=== PATIENT | male | born 1970 | race Caucasian/White ===

== ENCOUNTER → 2017-03-21 09:24 | Outpatient (CLI) | payer OTHER, SELFPAY ==
--- NOTE | 2017-03-21 09:28 | RAD_ITS ---
STUDY: X-RAY CHEST REASON FOR EXAM: Male, 46 years old. Burning sensation in the mid chest region. TECHNIQUE: PA and lateral views of the chest. COMPARISON: Comparison is made with prior study dated February 10, 2014. FINDINGS: The lungs are clear and expanded. Scattered calcified granulomas. There is no demonstrated pleural abnormality. Normal size heart. Normal mediastinum and izabella. Normal visualized pulmonary arteries. Normal visualized aortic arch and descending thoracic aorta. Normal visualized thoracic spine. Normal visualized ribs, clavicles, and shoulders. There is no demonstrated abnormality of the visualized soft tissue structures of the upper abdomen. RAD/Chest PA and Lateral IMPRESSION: Normal x-ray examination of the chest. Electronically Signed: Junior Awan MD at 12:29 EST Tel [phone], Service support ,
== END ==
PROVIDERS: Family Provider Internal Medicine; PCP Internal Medicine; Visit Provider Nurse Practitioner Gerontology
DX: R07.89 Other chest pain (principal)
CPT/HCPCS: 71046

== ENCOUNTER 2019-07-27 20:12 | Emergency (ER) | payer BC, OTHER, SELFPAY ==
[2019-07-27 20:13] VITALS: BP 155/101; PULSE 92; RESP 15; TEMP 36.3; O2SAT 98; BMI 32.3
--- NOTE | 2019-07-27 20:30 | ED.VIS.GEN ---
History of Present Illness Chief Complaint: Other, Pain/Inj Informant: Patient, Family Onset: Today Narrative: Patient states that today while attempting to get into the pool he slipped and came down on the ladder over the medial distal right thigh. He notes a large amount of swelling and bruising. States is painful to try to bend the knee and to try to ambulate. 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 He denies being on any blood thinners. Past Medical History - Allergies and Home Meds Allergies/Adverse Reactions: Allergies ampicillin Allergy (Verified 07/27/19 20:18) Rash Primary Care Physician: Naida Butler DO [Primary Care Provider] - Smoking Status: Never smoker Review of Systems General: Denies: Chills, Fever, Sweats Eyes: Denies: Visual changes - bilaterally, Diplopia ENT: Denies: Rhinorrhea, Sore throat Cardiovascular: Denies: Chest pain, Palpitations Respiratory: Denies: Dyspnea, Cough, Dyspnea on exertion Gastrointestinal: Denies: Abdominal pain, Nausea, Vomiting, Diarrhea, Melena, Hematochezia Genitourinary: Denies: Dysuria, Hematuria, Frequency Musculoskeletal: Reports: Extremity Pain. Denies: Back pain Skin: Denies: Rash, Wounds Neurological: Denies: Headache, Weakness, Numbness Physical Exam Vital Signs/Narrative: Vital Signs Temp Pulse Resp BP Pulse Ox 07/27/19 20:13 97.4 F L 92 15 155/101 H 98 Inital Vital Signs reviewed: Yes General: Well nourished, Well developed, No Acute Distress Head: Normocephalic, Atraumatic Eyes: Perrl, EOMI ENT: Moist mucous membranes, No rhinorrhea Neck: Supple, Nontender Cardiovascular: Regular rate, Regular rhythm, No murmurs Respiratory: No distress, CTA bilaterally, Chest nontender Abdomen: Soft, Nontender, Nondistended, Normal bowel sounds Back: Nontender, Normal Inspection Extremities: Tenderness - Medial distal posterior thigh demonstrates about a baseball sized hematoma right along his hamstring tendons. The knee joint itself appears unaffected. Neurovascularly he is intact distally. Skin: Normal color, No rash Neurological: Alert, Oriented x3, Cranial nerves II-XII grossly intact, Normal Strength, Normal Sensation Psychological: Normal affect, Normal Mood Diagnostic/Tx/Re-eval - Medical Decision Making I do not believe x-rays are indicated. This appears to be a large subcutaneous hematoma. We will place him on crutches and have him use an Mario wrap and ice. I will write for a few [place]. He was advised this will take some time to fully resolve. I can take him off work for a few days. ED Disposition - Plan for ED Patient: Disposition: Home or Assisted Living Diagnosis: Subcutaneous hematoma Instructions: ED Hematoma Prescriptions: Hydrocodone Bitart/Apap 5-325 [[place] 5MG-325MG] 1 tab PO Q6H PRN PRN 3 Days #12 tab PRN Reason: Pain Prescription Printed Referrals: Naida Butler DO [Primary Care Provider] - 10-14 Days if not better
== END 2019-07-27 21:07 | disposition home or self-care (01) ==
LOC: ED 20:42
PROVIDERS: Emergency Provider Emergency Medicine; PCP Internal Medicine
DX: S70.11XA Contusion of right thigh, initial encounter (principal); W01.198A Fall on same level from slipping, tripping and stumbling with subsequent striking against other object, initial encounter; Y93.11 Activity, swimming; Y92.008 Other place in unspecified non-institutional (private) residence as the place of occurrence of the external cause; Y99.8 Other external cause status
CPT/HCPCS: 99282

== ENCOUNTER → 2020-04-16 15:43 | Outpatient (CLI) | payer OTHER, SELFPAY ==
--- NOTE | 2020-04-16 15:47 | VDLE_ITS ---
Reason For Study: Shortness of breath RIGHT GSV is normal. CFV is compressible, spontaneous, phasic, competent and demonstrates normal augmentation. FV is compressible, spontaneous, phasic, competent and demonstrates normal augmentation. POP V is compressible, spontaneous, phasic, competent and demonstrates normal augmentation. T/P Trunk is compressible. PTV is compressible. RT PerV is compressible. Procedure This is a venous duplex using B-mode, color flow and spectral Doppler. Exam performed in department. A preliminary report was called and/or faxed to [facility]. Interpretation Summary Deep veins of the right lower extremity are patent and compressible segmentally. There is no evidence of right lower extremity deep vein thrombosis. Valvular competence appears intact within the proximal deep venous system on the right . The right great saphenous vein appears patent and compressible segmentally. Ordering Physician: Naida Butler Referring Physician: Naida Butler Performed By: Reina Perez RVT
[2020-04-16 16:19] LABS: Absolute Lymphocyte Count 1.38 X10^3/uL (0.83-4.51); Absolute Neutrophil Count 4.8 X10^3/uL (2.0-7.7); Basophil# 0.04 X10^3/uL; Basophil% 0.6 % (0-1); Eosinophil# 0.14 X10^3/uL; Eosinophils% 1.9 % (0-5); Hematocrit 45.9 % (40-54); Hemoglobin 15.3 g/dL (13.0-16.5); Lymphocyte # 1.38 X10^3/ul (4.0); Lymphocyte % 19.1 % (19-41); Mean Corp Hgb Conc 33.3 g/dL (32-36); Mean Corpuscular Hgb 28.9 pg (27.0-32.0); Mean Corpuscular Volume 86.8 fL (80-94); Mean Platelet Vol. 11.5 fl (6.2-12.0); Monocyte# 0.86 X10^3/uL; Monocyte% 11.9 % (0-10); NRBC Flagged by Analyzer 0 % (0-5); Neutrophil # 4.78 X10^3/uL (2.7-7.7); Neutrophil % 65.9 % (47-70); Platelet Count 209 K/mm3 (150-450); RBC Distribution Width CV 13.2 % (11.6-14.6); RBC Distribution Width SD 41.8 fl (35.1-43.9); Red Blood Count 5.29 M/mm3 (4.6-6.2); White Blood Count 7.2 K/mm3 (4.4-11.0)
[2020-04-16 16:48] LABS: Amylase 24 U/L (25-115); CRP < 2.90 mg/L (0.0-3.0); Erythrocyte Sedimentation Rate 8 mm/hr (0-20); Lipase 82 U/L (73-393)
== END ==
PROVIDERS: PCP Internal Medicine; Referring Provider Internal Medicine; Visit Provider Internal Medicine
DX: K85.90 Acute pancreatitis without necrosis or infection, unspecified (principal); R06.02 Shortness of breath
CPT/HCPCS: 36415; 82150; 83690; 85025; 85652; 86140; 93971

== ENCOUNTER 2021-05-15 19:25 | Emergency (ER) | payer BC, OTHER, SELFPAY ==
[2021-05-15 19:26] VITALS: BP 164/108; PULSE 97; RESP 22; TEMP 36.5; O2SAT 97; BMI 33.7
--- NOTE | 2021-05-15 19:31 | EKG12_ITS ---
Test Reason : CP Blood Pressure : / mmHG Vent. Rate : 098 BPM Atrial Rate : 098 BPM P-R Int : 146 ms QRS Dur : 106 ms QT Int : 372 ms P-R-T Axes : 051 064 059 degrees QTc Int : 474 ms Normal sinus rhythm Normal ECG Confirmed by YOCASTA FALL, GENO ([id number]), slot editor SAKSHI CANTU ([id number]) on 05/18/2021 10:45:37 AM Referred By: Confirmed By:GENO RUST MD
--- NOTE | 2021-05-15 19:38 | CT_ITS ---
HISTORY: headache TECHNIQUE: Multiple axial images were obtained of the brain without intravenous contrast. A radiation dose optimization technique was used for this scan. IV Contrast dosage and agent: None. COMPARISON: None FINDINGS: # of images incl. paperwork: [id number] PARANASAL SINUSES AND MASTOID AIR CELLS: Clear. Chronic appearing defect in the outer table of the right mastoid bone posterior to the external auditory meatus. INTRACRANIAL HEMORRHAGE: None. BRAIN PARENCHYMA: No CT evidence of stroke. No intracranial masses. There is preservation of the holliday/white matter interface. Posterior fossa structures are unremarkable. CSF SPACES: Appropriate for age. There is no hydrocephalus. MASS EFFECT: None. CALVARIUM: Intact. CT/Brain/Head without Contrast IMPRESSION: No acute intracranial findings. Possible prior right mastoid surgery. Correlate with surgical history. Individualized dose optimization techniques were used for this CT. at 2057 Reported and signed by: Biju Randhawa MD Electronically Signed: Biju Randhawa MD at 20:56 EDT ,
[2021-05-15 19:41] LABS: Absolute Lymphocyte Count 1.39 X10^3/uL (0.83-4.51); Absolute Neutrophil Count 5.7 X10^3/uL (2.0-7.7); Basophil# 0.04 X10^3/uL; Basophil% 0.5 % (0-1); Eosinophil# 0.12 X10^3/uL; Eosinophils% 1.5 % (0-5); Hemoglobin 16.5 g/dL (13.0-16.5); Lymphocyte # 1.39 X10^3/ul (0.83-4.51); Lymphocyte % 17.8 % (19-41); Mean Corp Hgb Conc 35.1 g/dL (32-36); Mean Corpuscular Hgb 30.3 pg (27.0-32.0); Mean Corpuscular Volume 86.4 fL (80-94); Mean Platelet Vol. 12.1 fl (6.2-12.0); Monocyte# 0.57 X10^3/uL; Monocyte% 7.3 % (0-10); NRBC Flagged by Analyzer 0 % (0-5); Neutrophil # 5.65 X10^3/uL (2.7-7.7); Neutrophil % 72.5 % (47-70); Platelet Count 230 K/mm3 (150-450); RBC Distribution Width CV 13.3 % (11.6-14.6); RBC Distribution Width SD 41.7 fl (35.1-43.9); Red Blood Count 5.44 M/mm3 (4.6-6.2); White Blood Count 7.8 K/mm3 (4.4-11.0)
--- NOTE | 2021-05-15 19:44 | EDS_ITS ---
HPI History of Present Illness Chief Complaint: Chest Pain Narrative Narrative: 50-year-old male presenting with chest pain. States it was left- sided and was kind of a stabbing in nature. It does not hurt with deep inspiration. He states it lasted for short while and then improved. He currently has no pain. Patient states he was admitted to pulmonary in hospital last year and had a full cardiac work-up with treadmill stress test. At that point he had a CTA of his chest and had no pulmonary embolism or aortic abnormalities. Patient initially followed up with his PCP Dr. Butler, but other than that has not seen her in years. He reports that he had COVID 19 in February with mild to moderate symptoms. Patient also notes that his blood pressures have been elevated this week. He is complaining of intermittent headaches. No visual complaints. He is feeling a little bit lightheaded at times. He states that his blood pressure check the other day showed his systolic to be over 180 and his diastolic to be about 115. He did not feel it was important to make an appointment with his primary care doctor because he did not think it was that high. Patient denies cardiac history other than his previous admission. He denies diabetes, hyperlipidemia. No recent travel, immobilization, history of DVT, history of cancer, allergies hormones [facility] Home Medications amlodipine 5 mg PO DAILY #30 tab 05/15/21 [Rx Last Taken Unknown] Allergy/AdvReac Type Severity Reaction Status Date / Time ampicillin Allergy Rash Verified 05/15/21 19:31 Social History Smoking Status: Never smoker [facility] ED Constitutional Constitutional ED: Denies chills or fever(s) Eyes Eyes: Denies none ENT ENT ED: Denies rhinorrhea or sore throat Cardiovascular Cardiovascular: Reports as per HPI Respiratory/Chest Respiratory/Chest: Denies cough, dyspnea or sputum Gastrointestinal Gastrointestinal: Denies abdominal pain, nausea or vomiting Genitourinary Genitourinary ED: Denies dysuria Musculoskeletal Musculoskeletal: Denies back pain or neck pain Integumentary Denies rash Neurologic Neurologic: Reports headache(s) and other Details: Lightheadedness ; Denies paresthesias or weakness Psychiatric Psychiatric: Denies anxiety or depression EXAM Physical Exam Const Vital Signs: 05/15/21 19:26 05/15/21 19:33 05/15/21 20:10 Temperature 97.7 F L Temperature Source Temporal Pulse Rate 97 100 Respiratory Rate 22 H Blood Pressure 164/108 H 177/110 H Blood Pressure Mean 126 132 Pulse Ox 97 Oxygen Delivery Method Room Air Room Air 05/15/21 20:53 Temperature Temperature Source Pulse Rate 87 Respiratory Rate 22 H Blood Pressure 152/88 H Blood Pressure Mean 109 Pulse Ox 98 Oxygen Delivery Method Room Air Positive well developed General Appearance ED: well developed and NAD; Negative for pallor HEENT Reports moist mucous membranes normocephalic and atraumatic Eyes PERRL and EOMs intact bilaterally Chest Wall inspection of chest normal Resp normal respiratory effort and clear to auscultation bilaterally Effort and Inspection: Negative for respiratory distress Auscultation: Negative for rales, rhonchi or wheezes Cardio regular rate and regular rhythm Neuro oriented x3 and CN's II-XII intact bilaterally Sensorium / Orientation: awake and alert Motor Exam: strength 5/5 throughout Psych mental status grossly normal Skin General Skin Exam: Negative for jaundice or pallor MDM MDM MDM Narrative Medical decision making narrative: Patient presenting with chest pain. He is also had some hypertension recently which has been untreated. He is having intermittent lightheadedness and headaches. Patient also reports a recent history of COVID-19 in the last 2 months. His EKG obtained on arrival shows a normal sinus rhythm with a ventricular rate of 98 bpm without sign of ischemic change. Will obtain a cardiac work-up then D-dimer given patient's recent COVID and sharp chest pain. I will also obtain a CT of the brain due to his headaches and lightheadedness with his hypertension. He is given 20 mg of labetalol. His blood pressure will be reassessed. Patient was discussed with Dr. Mclaughlin is on-call for his primary care physician. She recommended if his work-up is ultimately negative that he needed blood pressure medication to start him on amlodipine 5 mg. I reviewed the medical record from his previous stay and it did appear that he had some inflammation around the pancreatic head and tail on his CTA. This was followed with a CT abdomen pelvis while he was still inpatient. Some similar findings. His lipase and liver function testing have been normal at that time. CBC and BMP are unremarkable with exception of a potassium of 3.4. Lipase is normal. D-dimer is negative. Lumbar chest x-ray on my interpretation shows no acute cardiopulmonary process. The radiologist does agree. His initial high-sensitivity troponin is 6. I reassessed him after his labetalol 20 mg was given. His blood pressure at 2034 is 145/85. I think this is a reasonable blood pressure at this point. CT of the brain is negative for acute findings. The patient's chest pain does not sound cardiac in nature. With a negative D-dimer and a normal chest x-ray I feel the patient is stable for discharge home without a delta troponin especially since he is had a stress test in last year which was completely normal. He will take his amlodipine nightly with first dose in the ER. Patient is given return precautions. He states he feels much better than when he arrived. Impression: 1. Chest pain noncardiac 2. Hypertension 3. Headaches Lab Data Attestation: I reviewed the patient's lab results. Labs: Laboratory Results - last 24 hr 05/15/21 05/15/21 05/15/21 19:28 19:31 Unknown WBC 7.8 RBC 5.44 Hgb 16.5 Hct 47.0 MCV 86.4 MCH 30.3 MCHC 35.1 RDW Std Deviation 41.7 RDW Coeff of Isidro 13.3 Plt Count 230 MPV 12.1 H Immature Gran % (Auto) 0.400 Neut % (Auto) 72.5 H Lymph % (Auto) 17.8 L [place] % (Auto) 7.3 Eos % (Auto) 1.5 Baso % (Auto) 0.5 Absolute Neuts (auto) 5.7 Absolute Lymphs (auto) 1.39 Nucleated RBC % 0 D-Dimer Quant (PE/DVT) 0.42 Sodium 140 Potassium 3.4 L Chloride 104 Carbon Dioxide 28.0 Anion Gap 8 BUN 12 Creatinine 0.95 Estim Creat Clear Calc 107.47 Est GFR (MDRD) Af Amer 108 Est GFR (MDRD) Non-Af 90 BUN/Creatinine Ratio 12.6 Glucose 143 H Calcium 8.7 Total Bilirubin 0.40 Direct Bilirubin 0.06 AST 20 ALT 41 Alkaline Phosphatase 74 Troponin I High Sens 6 Total Protein 7.4 Albumin 3.7 Globulin 3.7 Lipase 82 Radiography Diagnostic Testing: Clinical Impression(s) from Imaging Studies Brain CT 05/15/21 19:38 IMPRESSION: No acute intracranial findings. Possible prior right mastoid surgery. Correlate with surgical history. Individualized dose optimization techniques were used for this CT. at 2057 Reported and signed by: Biju Randhawa MD Electronically Signed: Biju Randhawa MD at 20:56 EDT , Chest X-Ray 05/15/21 19:50 IMPRESSION: No acute findings in the chest. Electronically Signed: Dion Garcia MD at 20:37 EDT , Discharge Plan Triage Chief Complaint: Chest Pain ED Provider: Jhonathan Malin Dx/Rx/DC Orders Instructions: ED Chest Pain, Noncardiac, ED Hypertension New Begin Treatment Prescriptions: New amlodipine 5 mg tablet 5 mg PO DAILY Qty: 30 RF: 0 Primary Care Provider: Naida Butler Referrals: Naida Butler DO [Primary Care Provider] - Disposition Disposition: Home, Self Care
--- NOTE | 2021-05-15 19:50 | RAD_ITS ---
EXAM: XR Chest, 1 View CLINICAL INDICATION: 50 years old, Male; chest pain TECHNIQUE: Frontal view of the chest. This report was created using [employer] report generation technology. COMPARISON: XR Chest dated 03/21/2017 FINDINGS: Lungs and pleural spaces: Atelectasis in the lung bases. No pneumothorax. No effusion. Heart: Unremarkable. Cardiac silhouette not enlarged. Mediastinum: Central airways and mediastinal contour are unremarkable. Bones/joints: Unremarkable. Soft tissues: Unremarkable. RAD/Chest 1 View (Portable) IMPRESSION: No acute findings in the chest. Electronically Signed: Dion Garcia MD at 20:37 EDT ,
--- NOTE | 2021-05-15 19:51 | NURSING ---
patient in imaging. waiting on med from pharmacy. pt is aware of time frames and plan of care.
--- NOTE | 2021-05-15 19:53 | ED.RN ---
michelle in pharmacy states the trandate order needs changed to be able to pull it and he is working on fixing the issue. Will retry when patient back in room.
--- NOTE | 2021-05-15 20:02 | ED.RN ---
Called lab about the blue top for d-dimer, lab not able to see ddimer order. We are not able to reprint it. reordered so can send a sticker down to lab.
[2021-05-15] MEDS: Labetalol (Prefilled) 20 MG/4 ML IV (20:09)
[2021-05-15 20:10] VITALS: BP 177/110; PULSE 100
[2021-05-15 20:17] LABS: D-Dimer Quantitative (DVT/PE) 0.42 FEU/ug/m (0.27-0.49)
[2021-05-15 20:19] LABS: AST(SGOT) 20 U/L (15-37); Alanine Aminotransfer ALT/SGPT 41 U/L (16-61); Albumin, Serum 3.7 g/dL (3.2-5.0); Alkaline Phosphatase 74 U/L (45-117); Anion Gap 8 (5-15); BUN 12 mg/dL (7-18); BUN/Creat Ratio 12.6 RATIO (10-20); Bilirubin, Direct 0.06 mg/dL (0.00-0.30); Calcium,Total 8.7 mg/dL (8.5-10.1); Chloride 104 mmol/L (98-107); Creatinine, Serum 0.95 mg/dL (0.70-1.30); EST Glomerular Filtration Rate 90 mL/min (>60); Est Glom Filt Rate - Afr Amer 108 mL/min (>60); Estimated Creatinine Clearance 107.47 ml/min; Globulin 3.7 g/dL (2.2-4.2); Glucose 143 mg/dL (74-106); Lipase 82 U/L (73-393); Potassium 3.4 mmol/L (3.5-5.1); Protein, Total 7.4 g/dL (6.4-8.2); Sodium Level 140 mmol/L (136-145); Troponin-I HS 6 pg/mL (3.0-78.0)
[2021-05-15 20:53] VITALS: BP 152/88; PULSE 87; RESP 22; O2SAT 98
[2021-05-15] MEDS: amLODIPine 5 MG Tablet PO (20:53)
[2021-05-15 21:08] VITALS: BP 156/76; PULSE 89; RESP 18; O2SAT 99
== END 2021-05-15 21:09 | disposition home or self-care (01) ==
PROVIDERS: Emergency Provider Student in an Organized Health Care Education/Training Program; PCP Internal Medicine; Visit Provider Student in an Organized Health Care Education/Training Program
DX: R07.89 Other chest pain (principal); I10 Essential (primary) hypertension; R51.9 Headache, unspecified; R42 Dizziness and giddiness; Z79.899 Other long term (current) drug therapy; Z86.16 Personal history of COVID-19
CPT/HCPCS: 70450; 71045; 80048; 80076; 83690; 84484; 85025; 85379; 93005; 96374; 99285; A4216

== ENCOUNTER → 2023-03-25 | Outpatient (CLI) | payer BC, SELFPAY ==
--- OUTSIDE RECORDS SUMMARY | 2023-03-25 08:54 | XMS RPT_ITS | CCD ---
Author Name Unknown Address [address] [place] [address] Organization [facility] Care Team Providers Care Principal Clerk Name Role Phone Naida Lara Unavailable Barbara Aguirre Unavailable Norman Oreilly Unavailable Unavailable Saritha Mancia Unavailable Unavailable Mayela Zayda Unavailable Unavailable Unavailable Naida Lara Attending Unavailable Naida Lara Referring Unavailable Naida Lara Consulting Unavailable Naida Lara Unavailable Barbara Aguirre Unavailable Linda Murillo Unavailable Unavailable Norman Mercedes Unavailable Unavailable Saritha Mancia Unavailable Unavailable Griceldaa, Zayda Unavailable Unavailable Unavailable MARIANNE NEWSOME MD Admitting Unavailable MARIANNE NEWSOME MD Primary Care Unavailable MARIANNE NEWSOME MD Attending Unavailable NAIDA LARA DO Consulting Unavailable PROVIDER, UNKNOWN Consulting Unavailable NAIDA LARA DO Consulting Unavailable QUIQUE, DR RED Aranda Admitting Unavaila ble QUIQUE, DR RED Aranda Primary Care Unavaila ble QUIQUE, DR RED Aranda Attending Unavaila ble PROVIDER, UNKNOWN Consulting Unavailable QUIQUE, DR RED Aranda Attending Unavaila ble NAIDA LARA DO Consulting Unavailable QUIQUE, DR RED Aranda Admitting Unavaila ble QUIQUE, DR RED Aranda Primary Care Unavaila ble PROVIDER, UNKNOWN Consulting Unavailable Naida Lara DO Primary Care Provider NAIDA LARA Primary Care Unavailab le Luke MCCAIN, Naida Unavailable [phone] Carla FALL, Dr. Jimenez Unavailable [phone] Lashon RAMN, Carmelita Unavailable Unavailable Chidi STREET, Linda Unavailable Unavailable Gavino CENTENO, Saritha Maher Unavailable Unavailable Unavailable Unavailable Allergies Allergy Classification Reported Allergen(s) Allergy Type Date of Onset Reaction(s) Facility Penicillins (antibiotic) (1 source) Ampicillin Drug Allergy [facility] Repository (6 sources) Ampicillin; Translations: [Ampicillin *PENICILLINS*] Drug Allergy [facility] Work Phone: (1 source) Ampicillin; Translations: [AMPICILLIN] Drug Allergy 5 [facility] Repository Medications Current Medications Medication Drug Class(es) Dates Sig (Normalized) Sig (Original) cephalexin 500 mg oral capsule (1 source) Cephalosporin Antibacterial Start: 01-22-2022 End: 02-01-2022 take 1 capsule by mouth twice daily cephALEXin (KEFLEX) 500 mg capsule Take 1 capsule by mouth twice daily for 10 days. 20 capsule 0 01/22/2022 02/01/2022 Active Completed/Discontinued Medications Medication Drug Class(es) Dates Sig (Normalized) Sig (Original) amLODIPine 5 mg oral tablet (2 sources) Dihydropyridine Calcium Channel Joaquin Start: 06-14-2021 take 1 tablet by mouth once daily amLODIPine Besylate 5 MG Oral Tablet 1 (one) Tablet daily for 0 days Quantity: 30 {Tablet} Refills: 2 Ordered: 14-Jun-2021 Naida Lara DO, DO, Kathleen Start : 14-Jun-2021 Active aspirin 81 mg delayed release oral tablet (4 sources) Platelet Aggregation Inhibitor, Nonsteroidal Anti-inflammatory Drug take 1 tablet by mouth once daily Longs Adult Low Strength ASA 81 MG Oral Tablet Delayed Release 1 tablet daily as directed (81 MG) Active atomoxetine 40 mg oral capsule (5 sources) Norepinephrine Reuptake Inhibitor Start: 12-26-2007 End: 12-26-2007 take 1 capsule by mouth twice daily STRATTERA, 40MG (Oral Capsule) Capsule BID for 0 days Quantity: 60 {Capsule} Refills: 3 Ordered: 26-Dec-2007 aNida Lara DO, DO, Kathleen Start : 26-Dec-2007 End : 26-Dec-2007 Discontinued celecoxib 100 mg oral capsule (5 sources) Nonsteroidal Anti-inflammatory Drug End: 05-15-2006 CELEBREX, 100MG (Oral Capsule) Unsure PRN for 0 days Refills: 0 Ordered: 25-Dec-2006 Benedict RAMNAlaina End : 15-May-2006 Discontinued Problems Active Problems Problem Classification Problem Date Documented Da te Episodic/Chronic Administrative/social admission (7 sources) Administrative reason for encounter; Translations: [Other general medical examination for administrative purposes] 02-12-2018 Episodic Attention-deficit conduct and disruptive behavior disorders (9 sources) Attention deficit hyperactivity disorder; Translations: [Attention-deficit hyperactivity disorder, unspecified type] 02-12-2018 Chronic Attention-deficit conduct and disruptive behavior disorders (5 sources) Attention deficit disorder without mention of hyperactivity; Translations: [Attention deficit disorder of childhood without mention of hyperactivity] 02-12-2018 Chronic Past or Other Problems Problem Classification Problem Date Documented Date Episodic/Chronic Other connective tissue disease (1 source) Lateral epicondylitis of bilateral humerus; Translations: [Lateral epicondylitis, right elbow] Onset: 07-07-2015 07-07-2015 Episodic Other ear and sense organ disorders (5 sources) Infective otitis externa, unspecified; Translations: [Infective otitis externa, unspecified] Resolved: 07-07-2008 04-01-2016 Episodic Results Test Name Value Interpretation Reference Range Facil ity Vital Signs Date Time Vital Sign Value Performing Clinician Facility 01-22-2022 08:37-0500 Body temperature 98.1 [degF] Sandra Gonsales APRN.CNP Work Phone: [facility] 01-22-2022 08:37-0500 Body weight 113.85 kg Sandra Gonsales APRN.CNP Work Phone: [facility] 01-22-2022 08:37-0500 Diastolic blood pressure 98 mm[Hg] Sandra Gonsales APRN.CNP Work Phone: [facility] 01-22-2022 08:37-0500 Heart rate 91 /min Sandra Gonsales APRN.CNP Work Phone: [facility] 01-22-2022 08:37-0500 Respiratory rate 20 /min Sandra Gonsales APRN.CNP Work Phone: [facility] 01-22-2022 08:37-0500 SaO2% (BldA) [Mass fraction] 96 % Sandra Gonsales APRN.TILE INSPECTOR Work Phone: [facility] 01-22-2022 08:37-0500 Systolic blood pressure 146 mm[Hg] Sandra Gonsales APRN.CNP Work Phone: [facility] 06-14-2021 16:03-0400 Body height 185.42 cm Carmelita Oates LPN [facility] Work Phone: 06-14-2021 16:03-0400 Body mass index (BMI) [Ratio] 30.48 kg/m2 Carmelita Oates LPN [facility]; [facility] Work Phone: 06-14-2021 16:03-0400 Body surface area Derived from formula 2.29 m2 Carmelita Oates LPN [facility]; [facility] Work Phone: 06-14-2021 16:03-0400 Body temperature 98 [degF] Carmelita Oates LPN [facility]; [facility] Work Phone: 06-14-2021 16:03-0400 Body weight 104.78 kg Carmelita Oates LPN [facility]; [facility] Work Phone: 06-14-2021 16:03-0400 Diastolic blood pressure 110 mm[Hg] Carmelita Oates LPN [facility]; [facility] Work Phone: Encounters Encounter Date Encounter Type Care Provider Facility Start: 01-22-2022 End: 01-22-2022 ambulatory NAIDA LARA Facility:[facility] Start: 01-22-2022 End: 01-22-2022 Patient encounter procedure Sandra Gonsales APRN.CNP Work Phone: [facility] Procedures Date Procedure Procedure Detail Performing Clinician Start: 01-22-2022 STREP A MOLECULAR (POC) Sandra Gonsales APRN.TILE INSPECTOR Work Phone: Start: 05-15-2021 End: 05-15-2021 Chest 1 View (Portable) Procedure Note: See Note; NOTES: [facility] Imaging Services [address] [place] [address] Chest 1 View (Portable) MR#: [id number] Acct: [id number] Name: PEPITO DUNN Rep #: [id number] : 1970 M 50 From: Dion Garcia MD PCP: Dr. Naida Lara DO Status: REG ER Study: Chest 1 View (Portable) Date of Exam: 05/15/21 Exam# [id number] Ordering Dr: Jhonathan Malin DO EXAM: XR Chest, 1 View CLINICAL INDICATION: 50 years old, Male; chest pain TECHNIQUE: Frontal view of the chest. This report was created using [employer] report generation technology. COMPARISON: XR Chest dated 03/21/2017 FINDINGS: Lungs and pleural spaces: Atelectasis in the lung bases. No pneumothorax. No effusion. Heart: Unremarkable. Cardiac silhouette not enlarged. Mediastinum: Central airways and mediastinal contour are unremarkable. Bones/joints: Unremarkable. Soft tissues: Unremarkable. RAD/Chest 1 View (Portable) IMPRESSION: No acute findings in the chest. Electronically Signed: Dion Garcia MD at 20:37 EDT , CC: Dr. Jhonathan Malin DO; Dr. Naida Lara DO Tipple Worker: Signed Naida Lara DO Work Phone: Start: 05-15-2021 End: 05-15-2021 Emergency Department Summary Procedure Note: See Note; NOTES: [facility] Medical Records Department [address] [place] [address] Emergency Department Summary 05/15/21 MR#: [id number] Acct: [id number] Name: PEPITO DUNN Rep #: [id number] : 1970 50 From: Jhonathan Malin DO PCP: Dr. Naida Luke, DO Status:REG ER Location: ED HPI History of Present Illness Chief Complaint: Chest Pain Narrative Narrative: 50-year-old male presenting with chest pain. States it was left-sided and was kind of a stabbing in nature. It does not hurt with deep inspiration. He states it lasted for short while and then improved. He currently has no pain. Patient states he was admitted to pulmonary in hospital last year and had a full cardiac work-up with treadmill stress test. At that point he had a CTA of his chest and had no pulmonary embolism or aortic abnormalities. Patient initially followed up with his PCP Dr. Lara, but other than that has not seen her in years. He reports that he had COVID 19 in February with mild to moderate symptoms. Patient also notes that his blood pressures have been elevated this week. He is complaining of intermittent headaches. No visual complaints. He is feeling a little bit lightheaded at times. He states that his blood pressure check the other day showed his systolic to be over 180 and his diastolic to be about 115. He did not feel it was important to make an appointment with his primary care doctor because he did not think it was that high. Patient denies cardiac history other than his previous admission. He denies diabetes, hyperlipidemia. No recent travel, immobilization, history of DVT, history of cancer, allergies hormones [facility] Home Medications amlodipine 5 mg PO DAILY #30 tab 05/15/21 [Rx Last Taken Unknown] Allergy/AdvReac Type Severity Reaction Status Date / Time ampicillin Allergy Rash Verified 05/15/21 19:31 Social History Smoking Status: Never smoker [facility] ED Constitutional Constitutional ED: Denies chills or fever(s) Eyes Eyes: Denies none ENT ENT ED: Denies rhinorrhea or sore throat Cardiovascular Cardiovascular: Reports as per HPI Respiratory/Chest Respiratory/Chest: Denies cough, dyspnea or sputum Gastrointestinal Gastrointestinal: Denies abdominal pain, nausea or vomiting Genitourinary Genitourinary ED: Denies dysuria Musculoskeletal Musculoskeletal: Denies back pain or neck pain Integumentary Denies rash Neurologic Neurologic: Reports headache(s) and other Details: Lightheadedness ; Denies paresthesias or weakness Psychiatric Psychiatric: Denies anxiety or depression EXAM Physical Exam Const Vital Signs: 05/15/21 19:26 05/15/21 19:33 05/15/21 20:10 Temperature 97.7 F L Temperature Source Temporal Pulse Rate 97 100 Respiratory Rate 22 H Blood Pressure 164/108 H 177/110 H Blood Pressure Mean 126 132 Pulse Ox 97 Oxygen Delivery Method Room Air Room Air 05/15/21 20:53 Temperature Temperature Source Pulse Rate 87 Respiratory Rate 22 H Blood Pressure 152/88 H Blood Pressure Mean 109 Pulse Ox 98 Oxygen Delivery Method Room Air Positive well developed General Appearance ED: well developed and NAD; Negative for pallor HEENT Reports moist mucous membranes normocephalic and atraumatic Eyes PERRL and EOMs intact bilaterally Chest Wall inspection of chest normal Resp normal respiratory effort and clear to auscultation bilaterally Effort and Inspection: Negative for respiratory distress Auscultation: Negative for rales, rhonchi or wheezes Cardio regular rate and regular rhythm Neuro oriented x3 and CN's II-XII intact bilaterally Sensorium / Orientation: awake and alert Motor Exam: strength 5/5 throughout Psych mental status grossly normal Skin General Skin Exam: Negative for jaundice or pallor MDM MDM MDM Narrative Medical decision making narrative: Patient presenting with chest pain. He is also had some hypertension recently which has been untreated. He is having intermittent lightheadedness and headaches. Patient also reports a recent history of COVID-19 in the last 2 months. His EKG obtained on arrival shows a normal sinus rhythm with a ventricular rate of 98 bpm without sign of ischemic change. Will obtain a cardiac work-up then D-dimer given patient's recent COVID and sharp chest pain. I will also obtain a CT of the brain due to his headaches and lightheadedness with his hypertension. He is given 20 mg of labetalol. His blood pressure will be reassessed. Patient was discussed with Dr. Mclaughlin is on-call for his primary care physician. She recommended if his work- up is ultimately negative that he needed blood pressure medication to start him on amlodipine 5 mg. I reviewed the medical record from his previous stay and it did appear that he had some inflammation around the pancreatic head and tail on his CTA. This was followed with a CT abdomen pelvis while he was still inpatient. Some similar findings. His lipase and liver function testing have been normal at that time. CBC and BMP are unremarkable with exception of a potassium of 3.4. Lipase is normal. D-dimer is negative. Lumbar chest x-ray on my interpretation shows no acute cardiopulmonary process. The radiologist does agree. His initial high-sensitivity troponin is 6. I reassessed him after his labetalol 20 mg was given. His blood pressure at 2034 is 145/85. I think this is a reasonable blood pressure at this point. CT of the brain is negative for acute findings. The patient's chest pain does not sound cardiac in nature. With a negative D-dimer and a normal chest x-ray I feel the patient is stable for discharge home without a delta troponin especially since he is had a stress test in last year which was completely normal. He will take his amlodipine nightly with first dose in the ER. Patient is given return precautions. He states he feels much better than when he arrived. Impression: 1. Chest pain noncardiac 2. Hypertension 3. Headaches Lab Data Attestation: I reviewed the patient's lab results. Labs: Laboratory Results - last 24 hr 05/15/21 05/15/21 05/15/21 19:28 19:31 Unknown WBC 7.8 RBC 5.44 Hgb 16.5 Hct 47.0 MCV 86.4 MCH 30.3 MCHC 35.1 RDW Std Deviation 41.7 RDW Coeff of Isidro 13.3 Plt Count 230 MPV 12.1 H Immature Gran % (Auto) 0.400 Neut % (Auto) 72.5 H Lymph % (Auto) 17.8 L [place] % (Auto) 7.3 Eos % (Auto) 1.5 Baso % (Auto) 0.5 Absolute Neuts (auto) 5.7 Absolute Lymphs (auto) 1.39 Nucleated RBC % 0 D-Dimer Quant (PE/DVT) 0.42 Sodium 140 Potassium 3.4 L Chloride 104 Carbon Dioxide 28.0 Anion Gap 8 BUN 12 Creatinine 0.95 Estim Creat Clear Calc 107.47 Est GFR (MDRD) Af Amer 108 Est GFR (MDRD) Non-Af 90 BUN/Creatinine Ratio 12.6 Glucose 143 H Calcium 8.7 Total Bilirubin 0.40 Direct Bilirubin 0.06 AST 20 ALT 41 Alkaline Phosphatase 74 Troponin I High Sens 6 Total Protein 7.4 Albumin 3.7 Globulin 3.7 Lipase 82 Radiography Diagnostic Testing: Clinical Impression(s) from Imaging Studies Brain CT 05/15/21 19:38 IMPRESSION: No acute intracranial findings. Possible prior right mastoid surgery. Correlate with surgical history. Individualized dose optimization techniques were used for this CT. at 2057 Reported and signed by: Biju Randhawa MD Electronically Signed: Biju Randhawa MD at 20:56 EDT , Chest X-Ray 05/15/21 19:50 IMPRESSION: No acute findings in the chest. Electronically Signed: Dion Garcia MD at 20:37 EDT , Discharge Plan Triage Chief Complaint: Chest Pain ED Provider: Jhonathan Malin Dx/Rx/DC Orders Instructions: ED Chest Pain, Noncardiac, ED Hypertension New Begin Treatment Prescriptions: New amlodipine 5 mg tablet 5 mg PO DAILY Qty: 30 RF: 0 Primary Care Provider: Naida Lara Referrals: Naida Lara DO [Primary Care Provider] - Disposition Disposition: Home, Self Care What to do if you have Problems For any increased pain, shortness of breath, bleeding, nausea or vomiting, chest pain, or any unexpected problems, contact your Primary Care Provider. Call [facility] ([phone]) or report to the closest Emergency Room. Call 911 if necessary. 05/15/212100 <Electronically signed by Jhonathan Malin DO> Cosigner Signature (if applicable): CC: Dr. Naida Lara DO Signed Naida Lara DO Work Phone: Start: 05-15-2021 End: 05-15-2021 Brain/Head without Contrast Procedure Note: See Note; NOTES: [facility] Imaging Services [address] [place] [address] Brain/Head without Contrast MR#: [id number] Acct: [id number] Name: PEPITO DUNN Rep #: [id number] : 1970 M 50 From: iBju Randhawa MD PCP: Dr. Naida Lara DO Status: REG ER Study: Brain/Head without Contrast Date of Exam: 04/21 08/11 Exam# [id number] Ordering Dr: Jhonathan Malin DO HISTORY: headache TECHNIQUE: Multiple axial images were obtained of the brain without intravenous contrast. A radiation dose optimization technique was used for this scan. IV Contrast dosage and agent: None. COMPARISON: None FINDINGS: # of images incl. paperwork: [id number] PARANASAL SINUSES AND MASTOID AIR CELLS: Clear. Chronic appearing defect in the outer table of the right mastoid bone posterior to the external auditory meatus. INTRACRANIAL HEMORRHAGE: None. BRAIN PARENCHYMA: No CT evidence of stroke. No intracranial masses. There is preservation of the holliday/white matter interface. Posterior fossa structures are unremarkable. CSF SPACES: Appropriate for age. There is no hydrocephalus. MASS EFFECT: None. CALVARIUM: Intact. CT/Brain/Head without Contrast IMPRESSION: No acute intracranial findings. Possible prior right mastoid surgery. Correlate with surgical history. Individualized dose optimization techniques were used for this CT. at 2057 Reported and signed by: Biju Randhawa MD Electronically Signed: Biju Randhawa MD at 20:56 EDT Reading Location ID and State: [address] [place] [address] Tel , Service support , CC: Dr. Jhonathan Malin DO; Dr. Naida Lara DO Tipple Worker: Signed Naida Lara DO Work Phone: Start: 05-15-2021 End: 05-18-2021 12 Lead EKG Procedure Note: See Note; NOTES: [facility] Cardiovascular Services [address] [place] [address] 12 Lead EKG 05/15/211941 MR#: [id number] Acct: [id number] Name: PEPITO DUNN Rep #: [id number] : 1970 50 From: Jae Good MD Attending Dr: Status: DEP ER Ordering Dr: Jhonathan Malin DO Date: 05/15/21 Location: ED Sex: M C Admitted: Test Reason : CP Blood Pressure : / mmHG Vent. Rate : 098 BPM Atrial Rate : 098 BPM P-R Int : 146 ms QRS Dur : 106 ms QT Int : 372 ms P-R-T Axes : 051 064 059 degrees QTc Int : 474 ms Normal sinus rhythm Normal ECG Confirmed by JAE GOOD MD ([id number]), city editor SAKSHI CANTU ([id number]) on 05/18/2021 10:45:37 AM Referred By: Confirmed By:JAE GOOD MD 05/18/21 1045 Date Jae Good MD CC: Dr. Jhonathan Malin DO; Dr. Naida Lara DO Signed Naida Lara DO Work Phone: Start: 04-16-2020 End: 04-16-2020 Venous Duplex US, Unilateral Comments: See Note; NOTES: [facility] Cardiovascular Services [address] [place] [address] Venous Duplex US, Unilateral 04/16/20 1555 MR#: [id number] Acct: [id number] Name: PEPITO DUNN Rep #: [id number] : 1970 49 From: Bulmaro Kumar MD Attending Dr: Dr. Naida Lara DO Status: R EG CLI Ordering Dr: Naida Lara DO Date: 04/16/20 Location: CVS Sex: M C Admitted: Reason For Study: Shortness of breath RIGHT GSV is normal. CFV is compressible, spontaneous, phasic, competent and demonstrates normal augmentation. FV is compressible, spontaneous, phasic, competent and demonstrates normal augmentation. POP V is compressible, spontaneous, phasic, competent and demonstrates normal augmentation. T/P Trunk is compressible. PTV is compressible. RT PerV is compressible. Procedure This is a venous duplex using B-mode, color flow and spectral Doppler. Exam performed in department. A preliminary report was called and/or faxed to Luke. Interpretation Summary Deep veins of the right lower extremity are patent and compressible segmentally. There is no evidence of right lower extremity deep vein thrombosis. Valvular competence appears intact within the proximal deep venous system on the right . The right great saphenous vein appears patent and compressible segmentally. _ Ordering Physician: Naida Lara Referring Physician: Naida Lara Performed By: Reina Perez Mariana 04/16/201956 Date Bulmaro Kumar MD CC: Dr. Naida Lara DO Date Dictated: 04/16/20 1555 Date Transcribed: 04/16/201956 Tipple Worker: Signed Naida Lara Work Phone: Start: 07-27-2019 End: 07-30-2019 Emergency Department Summary Comments: See Note; NOTES: [facility] Medical Records Department [address] [place] [address] Emergency Department Summary 07/27/19 MR#: [id number] Acct: [id number] Name: PEPITO DUNN Rep #: [id number] : 1970 48 From: Amish Shah DO PCP: Dr. Naida Lara DO Status:DEP ER History of Present Illness Chief Complaint: Other, Pain/Inj Informant: Patient, Family Onset: Today Narrative: Patient states that today while attempting to get into the pool he slipped and came down on the ladder over the medial distal right thigh. He notes a large amount of swelling and bruising. States is painful to try to bend the knee and to try to ambulate. 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 He denies being on any blood thinners. Past Medical History - Allergies and Home Meds Allergies/Adverse Reactions: Allergies ampicillin Allergy (Verified 07/27/19 20:18) Rash Primary Care Physician: Naida Lara DO [Primary Care Provider] - Smoking Status: Never smoker Review of Systems General: Denies: Chills, Fever, Sweats Eyes: Denies: Visual changes - bilaterally, Diplopia ENT: Denies: Rhinorrhea, Sore throat Cardiovascular: Denies: Chest pain, Palpitations Respiratory: Denies: Dyspnea, Cough, Dyspnea on exertion Gastrointestinal: Denies: Abdominal pain, Nausea, Vomiting, Diarrhea, Melena, Hematochezia Genitourinary: Denies: Dysuria, Hematuria, Frequency Musculoskeletal: Reports: Extremity Pain. Denies: Back pain Skin: Denies: Rash, Wounds Neurological: Denies: Headache, Weakness, Numbness Physical Exam Vital Signs/Narrative: Vital Signs Temp Pulse Resp BP Pulse Ox 07/27/19 20:13 97.4 F L 92 15 155/101 H 98 Inital Vital Signs reviewed: Yes General: Well nourished, Well developed, No Acute Distress Head: Normocephalic, Atraumatic Eyes: Perrl, EOMI ENT: Moist mucous membranes, No rhinorrhea Neck: Supple, Nontender Cardiovascular: Regular rate, Regular rhythm, No murmurs Respiratory: No distress, CTA bilaterally, Chest nontender Abdomen: Soft, Nontender, Nondistended, Normal bowel sounds Back: Nontender, Normal Inspection Extremities: Tenderness - Medial distal posterior thigh demonstrates about a baseball sized hematoma right along his hamstring tendons. The knee joint itself appears unaffected. Neurovascularly he is intact distally. Skin: Normal color, No rash Neurological: Alert, Oriented x3, Cranial nerves II-XII grossly intact, Normal Strength, Normal Sensation Psychological: Normal affect, Normal Mood Diagnostic/Tx/Re-eval - Medical Decision Making I do not believe x-rays are indicated. This appears to be a large subcutaneous hematoma. We will place him on crutches and have him use an Mario wrap and ice. I will write for a few [place]. He was advised this will take some time to fully resolve. I can take him off work for a few days. ED Disposition - Plan for ED Patient: Disposition: Home or Assisted Living Diagnosis: Subcutaneous hematoma Instructions: ED Hematoma Prescriptions: Hydrocodone Bitart/Apap 5-325 [Ganado 5MG-325MG] 1 tab PO Q6H PRN PRN 3 Days #12 tab PRN Reason: Pain Prescription Printed Referrals: Naida Lara DO [Primary Care Provider] - 10-14 Days if not better What to do if you have Problems For any increased pain, shortness of breath, bleeding, nausea or vomiting, chest pain, or any unexpected problems, contact your Primary Care Provider. Call [facility] ([phone]) or report to the closest Emergency Room. Call 911 if necessary. 07/30/19 2240 <Electronically signed by Amish Shah DO> Date Amish Shah DO Cosigner Signature (If Indicated): Date CC: DO Naida Genao Start: 03-21-2017 End: 03-21-2017 Chest PA and Lateral Comments: See Note; NOTES: [facility] Imaging Services [address] [place] [address] Chest PA and Lateral MR#: [id number] Acct: [id number] Name: PEPITO DUNN Rep #: [id number] : 1970 M 46 From: Junior Awan MD PCP: Naida Lara DO Status: REG CLI Study: Chest PA and Lateral Date of Exam: 03/21/17 Exam# [id number] Ordering Dr: [address] PLANT PROPAGATOR-C STUDY: X-RAY CHEST REASON FOR EXAM: Male, 46 years old. Burning sensation in the mid chest region. TECHNIQUE: PA and lateral views of the chest. COMPARISON: Comparison is made with prior study dated February 10, 2014. FINDINGS: The lungs are clear and expanded. Scattered calcified granulomas. There is no demonstrated pleural abnormality. Normal size heart. Normal mediastinum and izabella. Normal visualized pulmonary arteries. Normal visualized aortic arch and descending thoracic aorta. Normal visualized thoracic spine. Normal visualized ribs, clavicles, and shoulders. There is no demonstrated abnormality of the visualized soft tissue structures of the upper abdomen. RAD/Chest PA and Lateral IMPRESSION: Normal x-ray examination of the chest. Electronically Signed: Junior Awan MD at 12:29 EST Tel [phone], Service support , CC: [address]; Naida Lara DO Tipple Worker: Signed [address] Start: 02-12-2014 End: 02-17-2014 Emergency Department Summary Comments: See Note; NOTES: [facility] Medical Records Department [address] [place] [address] Emergency Department Summary MR#: [id number] Acct: [id number] Name: PEPITO DUNN Rep #: [id number] : 1970 43 From: Jenifer Myrick MD PCP: Naida Lara DO Status: [facility] ER DATE OF SERVICE: 02/10/2014 CHIEF COMPLAINT: Chest and abdominal pain. HISTORY: This is a 43-year-old male that was here less than 24 hours ago for abdominal pain. He had 2 days of diarrhea. At that time, he had blood work and a CT scan, all of which were benign appearing. He was prescribed Bentyl and discharged. He did not take the Bentyl, but developed pain. It went up into his chest and neck tonight, he was at work and so he thought he should come back. He has had no more diarrhea since leaving. He has had no fevers, no nausea, no vomiting, no dyspnea. He has never had pain like this before that radiates up into his chest. It has been going on now for about 7 hours. PHYSICAL EXAMINATION: VITAL SIGNS: Noted for slight hypertension, but otherwise unremarkable. GENERAL: He is alert and appropriate. CARDIAC: Heart rate is regular with no murmurs. LUNGS: Clear. ABDOMEN: Soft with mild tenderness in the left upper quadrant. He has chest wall tenderness along his ribs and his anterior chest all the way up into his neck on the left. There is no overlying rash or abnormality or deformity. SKIN: Warm and dry. CLINICAL COURSE AND DECISION MAKING: A 2-view chest x-ray was unremarkable. EKG was sinus. No previous to compare to. I did not feel that it was necessary to repeat blood work less than 24 hours ago, so he did not get a repeat CBC or chemistry, but I did do a troponin. He has been having pain for at least 7 hours and his enzyme was negative and I feel with that and in combination with a negative EKG, is quite reassuring. He received aspirin here and felt like that it made his stomach feel better. He was instructed to follow up tomorrow with his PCP, Dr. Lara and return for any changes or concerns. DISPOSITION: Discharge. DIAGNOSIS: Nonspecific chest wall and abdomen pain. Jenifer Myrick MD T: NTS JOB: [id number] 02/12/14 1601 <Electronically signed by Jenifer Myrick MD> Date Jenifer Myrick MD CC: Naida Lara DO Date Dictated: 02/10/144 Date Transcribed: 02/10/14343 Tipple Worker: Signed Naida Lara Start: 02-11-2014 End: 02-11-2014 12 lead ECG Comments: See Note; NOTES: [facility] Cardiovascular Services [address] [place] [address] 12 Lead EKG 02/10/14 0237 MR#: [id number] Acct: [id number] Name: PEPITO DUNN #: [id number] : 1970 43 From: Amish Haley MD Attending Dr: Status: DEP ER Ordering Dr: Jenifer Myrick MD Date: 02/10/14 Location: ED Sex: M C Admitted: Test Reason : FLANK PAIN Blood Pressure : / mmHG Vent. Rate : 074 BPM Atrial Rate : 074 BPM P-R Int : 152 ms QRS Dur : 112 ms QT Int : 386 ms P-R-T Axes : 038 044 044 degrees QTc Int : 428 ms Normal sinus rhythm Normal ECG No previous ECGs available Confirmed by AMISH HALEY ([id number]), city editor CHEIKH FROST ([id number]) on 02/11/2014 11:06:46 AM Referred By: HUGO Confirmed By:AMISH HALEY 02/11/14 1106 Date Amish Haley MD CC: Naida Lara DO Date Dictated: 02/10/14236 Date Transcribed: 02/10/14236 Tipple Worker: Signed Naida Lara Start: 02-10-2014 End: 02-10-2014 Discharge Instruction Comments: See Note; NOTES: [facility] Medical Records Department [address] [place] [address] Discharge Instruction 02/10/14336 MR#: [id number] Acct: [id number] Name: PEPITO DUNN Rep #: [id number] : 1970 43 From: Jenifer Myrick MD PCP: Naida Lara DO Status: REG ER ED Disposition - Plan for ED Patient: Disposition: Home Chief Complaint: Abd Pain Instructions: ED Chest Pain, Uncertain Cause Referrals: Naida Lara DO [Primary Care Provider] - 1 Day What to do if you have Problems For any increased pain, shortness of breath, bleeding, nausea or vomiting, chest pain, or any unexpected problems, contact your doctor. Call [facility] ( [phone]) or report to the closest Emergency Room. Call 911 if necessary. 02/10/14338 <Electronically signed by Jenifer Myrick MD> Date Jenifer Myrick MD Cosigner Signature (If Indicated): Date CC: Naida Valencia Start: 02-10-2014 End: 02-10-2014 Chest PA and Lateral Comments: See Note; NOTES: [facility] Imaging Services [address] [place] [address] Radiology Report MR#: [id number] Acct: [id number] Name: PEPITO DUNN Rep #: [id number] : 1970 M 43 From: Amish Sher DO PCP: Naida Lara DO Status: DEP ER Study: Chest PA and Lateral Date of Exam: 02/10/14 Exam# [id number] Ordering Dr: Jenifer Myrick MD STUDY: X-RAY CHEST REASON FOR EXAM: Male, 43 years old. Left-sided chest pain TECHNIQUE: PA and lateral views of the chest. COMPARISON: February 22, 2009 FINDINGS: The lungs are mildly hyperinflated. No acute airspace opacities are demonstrated. Normal size heart. Normal mediastinum and izabella. Normal visualized pulmonary arteries. Normal visualized aortic arch and descending thoracic aorta. Normal visualized thoracic spine. Normal visualized ribs, clavicles, and shoulders. There is no demonstrated abnormality of the visualized soft tissue structures of the upper abdomen. IMPRESSION: Mild pulmonary hyperinflation. No acute airspace opacities are demonstrated. Electronically Signed: Anton Moe DO at 9:25 EST , Service support [phone], RAD/Chest PA and Lateral IMPRESSION: Mild pulmonary hyperinflation. No acute airspace opacities are demonstrated. Electronically Signed: Anton MoeDO at 9:25 EST , Service support [phone], CC: Jenifer Myrick MD; Naida Lara DO Tipple Worker: Signed Naida Lara Start: 02-09-2014 End: 02-09-2014 Emergency Department Summary Comments: See Note; NOTES: [facility] Medical Records Department [address] [place] [address] Emergency Department Summary MR#: [id number] Acct: [id number] Name: PEPITO DUNN Rep #: [id number] : 1970 43 From: Savanna Mims MD PCP: Naida Lara DO Status: DEP ER DATE OF SERVICE: 02/09/2014 CHIEF COMPLAINT: Abdominal pain. HISTORY OF PRESENT ILLNESS: The patient is a 43-year-old male complains of abdominal pain and diarrhea for the past 2 days, gradual onset, continuous, cramping pain in the left upper quadrant. It is worsened by movement and with food. He denies nausea or vomiting. He has had 2 episodes of diarrhea. He denies blood in his stool. He denies hematuria. He denies fever, but complains of chills. No other complaints. PHYSICAL EXAMINATION: VITAL SIGNS: Stable. The patient is afebrile. GENERAL: Alert, in no acute distress. HEENT: Unremarkable. HEART: Regular rate and rhythm. LUNGS: Clear and equal. ABDOMEN: Soft with tenderness in the left upper quadrant and epigastric region. No guarding. No rebound. No tenderness on the left lower or right lower quadrant. BACK: Nontender. SKIN: Warm and dry. NEUROLOGIC: The patient is alert and oriented with normal affect. EMERGENCY DEPARTMENT COURSE: CBC is normal with a white count of 6.7. Chemistry is unremarkable. Liver, lipase are normal. CT abdomen and pelvis shows postsurgical changes with no obstruction, possible liver cyst and fatty infiltration around the pancreas. The patient is advised of these findings. He declined pain medications in the Emergency Department. He is feeling improved following IV fluids and Phenergan. He is advised to follow up with Dr. Lara, his primary care physician and advised to return to the ED for worsening symptoms. CLINICAL IMPRESSION: Abdominal pain. DISPOSITION: The patient will be discharged. Savanna Mims MD T: NTS JOB: [id number] 02/09/14 1005 <Electronically signed by Savanna Mims MD> Date Savanna Mims MD CC: Naida Lara DO Date Dictated: 02/09/14927 Date Transcribed: 02/09/14927 Tipple Worker: Signed Naida Lara Start: 02-09-2014 End: 02-09-2014 Discharge Instruction Comments: See Note; NOTES: [facility] Medical Records Department [address] [place] [address] Discharge Instruction 02/09/14922 MR#: [id number] Acct: [id number] Name: PEPITO DUNN Rep #: [id number] : 1970 43 From: Savanna Mims MD PCP: Naida Lara DO Status: REG ER ED Disposition - Plan for ED Patient: Disposition: Home Chief Complaint: Abd Pain Instructions: ED Abdominal Pain, Unknown Cause, (Male) Prescriptions: Dicyclomine HCl [Bentyl] 20 mg PO 4X/DAY PRN #20 tablet PRN Reason: Abdominal Pain What to do if you have Problems For any increased pain, shortness of breath, bleeding, nausea or vomiting, chest pain, or any unexpected problems, contact your doctor. Call [facility] ) or report to the closest Emergency Room. Call 911 if necessary. 02/09/14923 <Electronically signed by Savanna Mims MD> Date aSvanna Mims MD Cosigner Signature (If Indicated): Date CC: Naida Deanon DO Naida Lara Start: 02-09-2014 End: 02-09-2014 Abdomen/Pelvis without Cont Comments: See Note; NOTES: [facility] Imaging Services [address] [place] [address] CAT Scan Report MR#: [id number] Acct: [id number] Name: PEPITO DUNN Rep #: [id number] : 1970 M 43 From: Amish Sher DO PCP: Naida Lara DO Status: REG ER Study: Abdomen/Pelvis without Cont Date of Exam: 02/09/14 Exam# [id number] Ordering Dr: Savanna Mims MD STUDY: CT ABDOMEN AND PELVIS WITHOUT CONTRAST REASON FOR EXAM: Male, 43 years old. Left-sided abdominal pain and diarrhea. RADIATION DOSAGE (If Supplied By Facility): CTDIvol = ( 17.48 ) mGy, DLP = ( 916.72 ) mGycm TECHNIQUE: Transaxial images were obtained from the dome of the diaphragm to the symphysis pubis without oral contrast, and without intravenous contrast. Sagittal and coronal images were reconstructed. COMPARISON: None. FINDINGS: The visualized lung bases are unremarkable. The visualized portions of the heart are within normal limits. The liver is at the upper limits of normal in size. 8 mm diameter low-density in the left lobe is identified on axial image 37. This may represent a small cyst although is too small to fully characterize. Normal gallbladder and extrahepatic biliary system. Normal spleen. Mild fatty involution of the pancreas is demonstrated. This is most pronounced in the region of the tail. Normal bilateral adrenal glands. Normal right kidney. Normal left kidney. A small hiatal hernia is present. The stomach is distended with fluid and ingested food material. There is some mild distention of the proximal small bowel with fluid. No definite obstruction is confirmed. Normal colon. The appendix is visualized and appears normal. Normal abdominal aorta. Normal inferior vena cava. Normal retroperitoneum. There are metallic clips anterior to the left psoas muscle indicating prior surgery. The urinary bladder was partially distended. Prostate gland is within normal limits with central calcifications demonstrated. Seminal vesicles are symmetric. There are some postsurgical residual associated with the left inguinal region. A small fat filled left inguinal hernia is demonstrated. There are incomplete pars defects at L5 demonstrated. IMPRESSION: Post surgical changes are identified associated with the left groin. No bowel obstruction identified. Fatty infiltration of the pancreas as detailed. 8 mm diameter low-density left lobe liver too small to characterize although may represent a small cyst. Hiatal hernia. Small fat filled left inguinal hernia. Electronically Signed: Anton Moe DO at 9:02 EST , Service support [phone], CC: Savanna Mims MD; Naida Lara DO Tipple Worker: Signed Naida Lara Plan of Treatment Date Care Activity Detail Author Start: 10-21-2021 Influenza vaccination INFLUENZA (#1) [facility] Start: 06-14-2021 Procedure Education Eprescribed prescriptions (G8553) [facility]; [facility] Work Phone: Start: 06-14-2021 Provider Instructions for Treatment [facility]; [facility] Work Phone: Start: 02-20-2021 DEPRESSION ASSESSMENT DEPRESSION ASSESSMENT [facility] Start: 08-25-2020 COVID-19 VACCINE (3 - Booster for Pfizer series) COVID-19 VACCINE (3 - Booster for Pfizer series) [facility] Start: 04-16-2020 Procedure Education Eprescribed prescriptions (G8553) [facility]; [facility] Work Phone: Start: 04-16-2020 Provider Instructions for Treatment [facility]; [facility] Work Phone: Start: 04-16-2020 Blood count complete automated CBC & PLATELETS (AUTO) (31664) [facility]; [facility] Work Phone: Start: 04-16-2020 C-reactive protein C-REACTIVE PROTEIN (10420) [facility]; [facility] Work Phone: Start: 04-16-2020 CRP [Mass/Vol] C-REACTIVE PROTEIN (48241) [facility]; [facility] Work Phone: Start: 04-16-2020 Sedimentation rate rbc non-automated ESR-F (SED RATE ERYTHROCYTE - MALE) (29158) [facility]; [facility] Work Phone: Start: 04-16-2020 Assay of lipase LIPASE (98277) [facility]; [facility] Work Phone: Start: 04-16-2020 Amylase [Catalytic activity/Vol] AMYLASE (36596) [facility]; [facility] Work Phone: Start: 04-16-2020 Assay of amylase AMYLASE (05706) [facility]; [facility] Work Phone: Start: 02-12-2018 Procedure Education Eprescribed prescriptions (G8553) [facility]; [facility] Work Phone: Start: 02-12-2018 Provider Instructions for Treatment Follow up if no improvement or if symptoms worsen [facility]; [facility] Work Phone: Start: 2017 COLOGUARD (FIT-DNA) COLOGUARD (FIT-DNA) [facility] Start: [address] [facility] Start: 2017 COLORECTAL CANCER SCREENING COLORECTAL CANCER SCREENING [facility] Start: [address] [facility] Start: 2017 DIABETES SCREEN DIABETES SCREEN [facility] Start: 2017 FECAL OCCULT BLOOD FECAL OCCULT BLOOD [facility] Start: [address] [facility] Start: 03-21-2017 Patient Education Common Cold *: upper respiratory infection [facility]; [facility] Work Phone: Start: 03-21-2017 Procedure Education Eprescribed prescriptions (G8553) [facility]; [facility] Work Phone: Start: 03-21-2017 Provider Instructions for Treatment Follow up if no improvement or if symptoms worsen [facility]; [facility] Work Phone: Start: 04-01-2016 Provider Instructions for Treatment [facility]; [facility] Work Phone: Start: 05-30-2011 Cul bact xcpt urine blood/stool aerobic isol MELL CULTURE-OTHER (29048) [facility] Work Phone: Start: 12-26-2007 Lipid panel LIPID PANEL (71059) [facility] Work Phone: Start: 08-30-[address] SCREEN [facility] Start: 05-15-2006 Provider Instructions for Treatment FOLLOW UP IN 4 WEEKS [facility]; [facility] Work Phone: Start: 08-30-1991 Urine microalbumin profile DTAP,TDAP,TD (1 - Tdap) [facility] Start: 1990 HEPATITIS C SCREENING HEPATITIS C SCREENING [facility] Start: 1990 HIV SCREENING HIV SCREENING [facility] Start: 1972 HEPATITIS B (1 of 3 - 3-dose series) HEPATITIS B (1 of 3 - 3-dose series) [facility] Work [facility]: [facility] Work [facility]: [facility] Work [facility]: [facility] Work Phone: [facility] Work Phone: Upper respirator y infection, viral : Common Cold *: upper respiratory infection [facility] Work Phone: [facility] Work Phone: Payers Date Payer Category Payer Unknown 2021 Unknown [id number] 2017 Unknown [id number] 2007 Unknown [id number] 2006 Unknown [id number] 1970 Unknown [id number] 2.16.84 [id number] 1970 Unknown [id number] 2.16.84 [id number] 1970 Unknown [id number] 2.16.84 [id number] 1970 Unknown [id number] 2.16.84 [id number] Unknown [id number] Unknown [id number] Social History Date Type Detail Facility Caffeine Use Never smoker [facility] Work Phone: Progress note 01-22-2022 Note Date & Type Note Facility 01-22-2022 Note HNO ID: [id number] Author: Sandra Gonsales APRN.TILE INSPECTOR Service: ? Author Type: Nurse Practitioner Type: Progress Notes Filed: 01/22/2022 9:35 AM Note Text: Subjective The history is provided by the patient. No shipbuilding draftsperson was used. HATTIE Dunn is a 51 year old male who presents today for CC of sore throat, cough. This started 3 days ago. He has not used any medications or treatment. BP 146/98 Pulse 91 Temp 36.7 ?C (98.1 ?F) Resp 20 Wt 113.9 kg (251 lb) SpO2 96% BP recheck 150/98 Social History Tobacco Use Smoking status: Never Smokeless tobacco: Never Substance Use Topics Alcohol use: No Drug use: No PAST MEDICAL HISTORY Diagnosis Date NEGATIVE MEDICAL HISTORY I have confirmed and edited as necessary, the [facility] Review of Systems Constitutional: Negative for chills and fever. HENT: Positive for sore throat. Negative for congestion, ear pain and sinus pain. Respiratory: Positive for cough. Negative for sputum production, shortness of breath and wheezing. Cardiovascular: Negative for chest pain. Gastrointestinal: Negative for abdominal pain, diarrhea, nausea and vomiting. Musculoskeletal: Negative for myalgias. Neurological: Negative for headaches. Objective Physical Exam Vitals and nursing note reviewed. Constitutional: Appearance: He is not toxic-appearing. HENT: Head: Normocephalic and atraumatic. Right Ear: Tympanic membrane, ear canal and external ear normal. Left Ear: Tympanic membrane, ear canal and external ear normal. Nose: No mucosal edema, congestion or rhinorrhea. Right Sinus: No maxillary sinus tenderness or frontal sinus tenderness. Left Sinus: No maxillary sinus tenderness or frontal sinus tenderness. Mouth/Throat: Pharynx: Uvula midline. Pharyngeal swelling, oropharyngeal exudate and posterior oropharyngeal erythema present. Tonsils: No tonsillar abscesses. Cardiovascular: Rate and Rhythm: Normal rate and regular rhythm. Heart sounds: Normal heart sounds. Pulmonary: Effort: Pulmonary effort is normal. Breath sounds: Normal breath sounds. No decreased breath sounds, wheezing, rhonchi or rales. Lymphadenopathy: Head: Right side of head: No submental, submandibular, tonsillar or preauricular adenopathy. Left side of head: No submental, submandibular, tonsillar or preauricular adenopathy. Cervical: No cervical adenopathy. Right cervical: No superficial cervical adenopathy. Left cervical: No superficial cervical adenopathy. Neurological: Mental Status: He is alert. ASSESSMENT/PLAN: 1. Sore throat - ICD9: 462, ICD10: J02.9 (primary diagnosis) - suspect strep - Alere Strep Test positive, no culture pending - STREP A MOLECULAR (POC) 2. Strep throat - ICD9: 034.0, ICD10: J02.0 - antibiotic as written - Discussed supportive care treatment with fluids, rest and analgesia. - The patient may also use warm salt water gargles, throat lozenges and/or OTC throat spray as needed. - Contagious dz precautions discussed- including considered contagious until on antibiotics for 24 hours - The patient should follow up in one week if symptoms persist or worsen - Call back if drooling, increased temperature, symptoms of dehydration and/or still sick in one week 3. Hypertension, unspecified type - ICD9: 401.9, ICD10: I10 Patient was on medication for bp, stopped because his blood pressure was normal - denies any headache or chest pain Advised to call PCP for direction - advise no decongestants, and consider restarting, will call their office on Monday. Diagnosis and treatment plan were discussed and questions were answered to the patient's satisfaction. Pt acknowledged understanding of concepts and follow up plan. Specific signs and symptoms that would indicate the need for higher level of care were discussed in detail warranting prompt ER evaluation. Sandra Gonsales APRN.[facility] Instructions 01-22-2022 Patient Instructions Note Date & Type Note Facility 01-22-2022 Instructions Sandra Gonsales APRN.CNP - 01/22/2022 9:25 AM EST Make sure to finish all of the antibiotic as prescribed. Do not stop early even if you are feeling better as the infection may not fully resolve and bacteria may start to grow again. Rest as much as possible, eat nutritiously and drink plenty of non caffeinated fluids. Change your toothbrush in 3 days after beginning the antibiotic. Tylenol or Motrin as needed for pain. Salt water gargles, Cepacol lozenges or Chloraseptic spray may also be helpful for pain. * Prednisone 40 mg (2 tablets) per day for 3 days, take in morning or early in day * Do not NSAIDs during this 3 day course (ibuprofen, naproxen, Motrin, Aleve, Advil) Tylenol only during prednisone use * Follow up with primary care provider if no improvement with treatment * Seek medical care immediately, call 911, go to ER if you have chest pain, difficulty breathing, shortness of breath, inability to swallow. documented in this encounter [facility] History of Present illness Narrative 01-22-2022 Sandra Gonsales APRN.CNP - 01/22/2022 8:48 AM EST Note Date & Type Note Facility 01-22-2022 History of Presen t illness Narrative Subjective The history is provided by the patient. No shipbuilding draftsperson was used. HPI Pepito Dunn is a 51 year old male who presents today for CC of sore throat, cough. This started 3 days ago. He has not used any medications or treatment. BP 146/98 Pulse 91 Temp 36.7 C (98.1 F) Resp 20 Wt 113.9 kg (251 lb) SpO2 96% BP recheck 150/98 Social History Tobacco Use Smoking status: Never Smokeless tobacco: Never Substance Use Topics Alcohol use: No Drug use: No PAST MEDICAL HISTORY Diagnosis Date NEGATIVE MEDICAL HISTORY I have confirmed and edited as necessary, the [facility] Review of Systems Constitutional: Negative for chills and fever. HENT: Positive for sore throat. Negative for congestion, ear pain and sinus pain. Respiratory: Positive for cough. Negative for sputum production, shortness of breath and wheezing. Cardiovascular: Negative for chest pain. Gastrointestinal: Negative for abdominal pain, diarrhea, nausea and vomiting. Musculoskeletal: Negative for myalgias. Neurological: Negative for headaches. Objective Physical Exam Vitals and nursing note reviewed. Constitutional: Appearance: He is not toxic-appearing. HENT: Head: Normocephalic and atraumatic. Right Ear: Tympanic membrane, ear canal and external ear normal. Left Ear: Tympanic membrane, ear canal and external ear normal. Nose: No mucosal edema, congestion or rhinorrhea. Right Sinus: No maxillary sinus tenderness or frontal sinus tenderness. Left Sinus: No maxillary sinus tenderness or frontal sinus tenderness. Mouth/Throat: Pharynx: Uvula midline. Pharyngeal swelling, oropharyngeal exudate and posterior oropharyngeal erythema present. Tonsils: No tonsillar abscesses. Cardiovascular: Rate and Rhythm: Normal rate and regular rhythm. Heart sounds: Normal heart sounds. Pulmonary: Effort: Pulmonary effort is normal. Breath sounds: Normal breath sounds. No decreased breath sounds, wheezing, rhonchi or rales. Lymphadenopathy: Head: Right side of head: No submental, submandibular, tonsillar or preauricular adenopathy. Left side of head: No submental, submandibular, tonsillar or preauricular adenopathy. Cervical: No cervical adenopathy. Right cervical: No superficial cervical adenopathy. Left cervical: No superficial cervical adenopathy. Neurological: Mental Status: He is alert. ASSESSMENT/PLAN: 1. Sore throat - ICD9: 462, ICD10: J02.9 (primary diagnosis) - suspect strep - Alere Strep Test positive, no culture pending - STREP A MOLECULAR (POC) 2. Strep throat - ICD9: 034.0, ICD10: J02.0 - antibiotic as written - Discussed supportive care treatment with fluids, rest and analgesia. - The patient may also use warm salt water gargles, throat lozenges and/or OTC throat spray as needed. - Contagious dz precautions discussed- including considered contagious until on antibiotics for 24 hours - The patient should follow up in one week if symptoms persist or worsen - Call back if drooling, increased temperature, symptoms of dehydration and/or still sick in one week 3. Hypertension, unspecified type - ICD9: 401.9, ICD10: I10 Patient was on medication for bp, stopped because his blood pressure was normal - denies any headache or chest pain Advised to call PCP for direction - advise no decongestants, and consider restarting, will call their office on Monday. Diagnosis and treatment plan were discussed and questions were answered to the patient's satisfaction. Pt acknowledged understanding of concepts and follow up plan. Specific signs and symptoms that would indicate the need for higher level of care were discussed in detail warranting prompt ER evaluation. Sandra Gonsales APRN.[place] documented in this encounter [facility] Discharge summary note 04-20-2020 Note Date & Type Note Facility 04-20-2020 Note [facility] DISCHARGE SUMMARY NAME ACCOUNT SEX AGE ADMIT DISCHARGE PT MED. RECORD# NUMBER DATE DATE TYPE SAVANNAH, [id number] [place] 49 04/11/20 04/13/20 2 PEPITO Wall [id number] ROOM: [id number] DATE OF : 1970 ATTENDING PHYSICIAN: Anna Mart ADMITTING DIAGNOSIS: Chest pain. FINAL DIAGNOSIS: Atypical chest pain with negative cardiac work-up. HISTORY OF PRESENT ILLNESS: This is a 49-year-old male who is otherwise healthy. He is obese with a BMI of over 31. He came in due to left-sided chest pain. No radiation to his arms, neck or back. It would last 1 to 2 seconds. It was a sharp pain, and then it would go away on its own. He had no syncope. No palpitations. No dizziness. He does not have any cardiac history. In the Emergency Room, initial blood pressure was elevated. Oxygen was stable. Troponin was normal. EKG did not show any ischemic changes. D-dimer was elevated. He underwent a CT of the chest with no pulmonary embolism, but it did demonstrate atrophy versus edema adjacent to the pancreatic head. He had no GI symptoms. No nausea, vomiting, or abdominal pain. A CT of the abdomen was completed with possible early pancreatitis. However, he had no symptoms, and lipase was within normal limits. He does not drink alcohol. HOSPITAL COURSE: For a full history and physical, please see the chart. For a brief summary, see below. He was admitted and ruled out for acute coronary syndrome. He underwent a nuclear stress test, which was negative for any ischemia with a normal ejection fraction. Upon evaluation this morning, he does not recall any heavy lifting or trauma. 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 He denies any acid reflux, and he has no pain in the abdomen. Blood pressure was 133/76, heart rate 70, respirations 16, temperature 98.2, and oxygen saturation 94% on room air. Lungs are clear to auscultation bilaterally. Heart is a regular rate and rhythm. He did not have any focal tenderness to palpation. Blood sugar on admission was 147 nonfasting. It was repeated and was 78, and hemoglobin A1c was 5.5%. No indication of diabetes. LDL was slightly elevated at 138. His diet was discussed, and he was educated on a low-fat, low-cholesterol diet. He was medically stable and discharged home to outpatient follow-up with Dr. Lara. Any other further outpatient work-up will be decided by his family physician. CONDITION ON DISCHARGE: Improved. MEDICATIONS ON DISCHARGE: None. DISCHARGE INSTRUCTIONS/PLAN: Destination: Home. Increase activity as Page 1 of 2 PEPITO DUNN Discharge Summary PEPITO DUNN : 1970 tolerated. Low-fat, low-cholesterol diet. Follow up with Dr. Lara on April 16, 2020, at 1:30 p.m. This will be a phone visit. I evaluated the patient myself the above E&M is accurate and done by me Lisa FALL Dictated by andrés Monreal for Dr. Mart. Dictated By: Anna Mart MD 04/13/20 12:36 JOB #: [id number] Transcribed By: pk 04/13/20 13:53 Electronically signed by: E-Sign: ANNA MART MD 04/20/20 09:50 Page 2 of 2 PEPITO DUNN Discharge Summary [facility] Evaluation note Note Date & Type Note Facility documented in this encounter [facility] Instructions Note Date & Type Note Facility [facility]; [facility] Work Phone: Instructions Name Dates Details BMI 30.0-30.9,adult : How to access health information online Indication:BMI 30.0-30.9,adult BMI 30.0-30.9,adult : How to access health information online - Detail Indication:BMI 30.0-30.9,adult BMI 30.0-30.9,adult : Patien t Instructions Indication:BMI 30.0-30.9,adult Non-smoker : How to access h ealth information online Indication:Non-smoker Non-smoker : How to access h ealth information online - Detail Indication:Non-smoker Flu-like symptoms : Patient Instructions Indication:Flu-like symptoms Non-smoker : Patient Instruc tions Indication:Non-smoker FX CLOSED METATARSAL : Patie nt Instructions Indication:FX CLOSED METATARSAL Name Dates Details How to Access Health Informa tion Online using Patient Portal and [employer] Apps Indication:Non-smoker Start:16-Apr-2020 Instruction Type:Patient Education Patient Instructions Indication:Non-smoker Start:16-Apr-2020 Instruction Type:Provider Instructions for Treatment How to access health informa tion online Indication:BMI 30.0-30.9,adult Start:12-Feb-2018 Instruction Type:Patient Education How to access health informa tion online - Detail Indication:BMI 30.0-30.9,adult Start:12-Feb-2018 Instruction Type:Patient Education Patient Instructions Indication:BMI 30.0-30.9,adult Start:12-Feb-2018 Instruction Type:Provider Instructions for Treatment How to access health informa tion online Indication:Non-smoker Start:21-Mar-2017 Instruction Type:Patient Education How to access health informa tion online - Detail Indication:Non-smoker Start:21-Mar-2017 Instruction Type:Patient Education Patient Instructions Indication:Flu-like symptoms Start:21-Mar-2017 Instruction Type:Provider Instructions for Treatment How to access health informa tion online Indication:Non-smoker Start:01-Apr-2016 Instruction Type:Patient Education How to access health informa tion online - Detail Indication:Non-smoker Start:01-Apr-2016 Instruction Type:Patient Education Patient Instructions Indication:Non-smoker Start:01-Apr-2016 Instruction Type:Provider Instructions for Treatment Patient Instructions Indication:FX CLOSED METATARSAL Start:14-Nov-2011 Instruction Type:Provider Instructions for Treatment Name Dates Details How to Access Health Informa tion Online using Patient Portal and [employer] Apps Indication:Non-smoker Start:16-Apr-2020 Instruction Type:Patient Education Patient Instructions Indication:Non-smoker Start:25-Feb-2021 Instruction Type:Provider Instructions for Treatment How to access health informa tion online Indication:BMI 30.0-30.9,adult Start:12-Feb-2018 Instruction Type:Patient Education How to access health informa tion online - Detail Indication:BMI 30.0-30.9,adult Start:12-Feb-2018 Instruction Type:Patient Education Patient Instructions Indication:BMI 30.0-30.9,adult Start:12-Feb-2018 Instruction Type:Provider Instructions for Treatment How to access health informa tion online Indication:Non-smoker Start:21-Mar-2017 Instruction Type:Patient Education How to access health informa tion online - Detail Indication:Non-smoker Start:21-Mar-2017 Instruction Type:Patient Education Patient Instructions Indication:Flu-like symptoms Start:21-Mar-2017 Instruction Type:Provider Instructions for Treatment How to access health informa tion online Indication:Non-smoker Start:01-Apr-2016 Instruction Type:Patient Education How to access health informa tion online - Detail Indication:Non-smoker Start:01-Apr-2016 Instruction Type:Patient Education Patient Instructions Indication:Non-smoker Start:01-Apr-2016 Instruction Type:Provider Instructions for Treatment Patient Instructions Indication:FX CLOSED METATARSAL Start:14-Nov-2011 Instruction Type:Provider Instructions for Treatment Summary Purpose Family History No Family History Records Found Advance Directives No Advanced Directives Records FoundNo Advanced Directives Records FoundNo Advanced Directives Records FoundNo Advanced Directives Records Found Additional Source Comments (unrecognized sect ion and content) No Status Records FoundNo Status Records FoundNo Status Records FoundNo Status Records Found INFORMATION SOURCE (unrecogn ized section and content) DATE CREATED AUTHOR AUTHOR'S ORGANIZ ATION 04/14/2020 [facility] DATE CREATED AUTHOR AUTHOR'S ORGANIZ ATION 07/03/2020 [facility] DATE CREATED AUTHOR AUTHOR'S ORGANIZ ATION 01/22/2022 [facility] Source Comments (unrecognize d section and content) In the event this informatio n is protected by the Federal Confidentiality of Alcohol and Drug Abuse Patient Records regulations: The Federal rules restrict any use of the information to criminally investigate or prosecute any alcohol or drug abuse patient.[facility] Reason for Visit (unrecogniz ed section and content) Care Teams (unrecognized sec tion and content) FOR RECORDS PERTAINING TO PATIENTS WHO ARE OR HAVE BEEN ENROLLED IN A CHEMICAL DEPENDENCY/SUBSTANCEABUSE PROGRAM, SOME INFORMATION MAY BE OMITTED. This clinical summary was aggregated from multiple sources. Caution should be exercised in using it in the provision of clinical care. This summary normalizes information from multiple sources, and as a consequence, information in this document may materially change the coding, format and clinical context of patient data. In addition, data may be omitted in some cases. CLINICAL DECISIONS SHOULD BE BASED ON THE PRIMARY CLINICAL RECORDS. [facility]. provides no warranty or guarantee of the accuracy or completeness of information in this document.
[2023-03-25 09:00] LABS: Bacteria 0 SEEN /hpf (None Seen); Mucous, Urine 0 SEEN /hpf (<or=2+); Red Blood Cells-Urine 0 SEEN /hpf (0-5); Squamous Epithelial Cells - UA 0 SEEN /hpf (0-5); White Blood Cells 0 SEEN /hpf (0-5)
[2023-03-25 09:19] LABS: Absolute Lymphocyte Count 1.43 X10^3/uL (0.83-4.51); Basophil# 0.04 X10^3/uL; Basophil% 0.6 % (0-1); Eosinophil# 0.13 X10^3/uL; Eosinophils% 2.1 % (0-5); Hematocrit 48.7 % (40-54); Hemoglobin 15.7 g/dL (13.0-16.5); Lymphocyte # 1.43 X10^3/ul (0.83-4.51); Lymphocyte % 22.7 % (19-41); Mean Corp Hgb Conc 32.2 g/dL (32-36); Mean Corpuscular Hgb 28.3 pg (27.0-32.0); Mean Corpuscular Volume 87.7 fL (80-94); Mean Platelet Vol. 11.8 fl (6.2-12.0); Monocyte# 0.65 X10^3/uL; Monocyte% 10.3 % (0-10); NRBC Flagged by Analyzer 0 % (0-5); Neutrophil # 4.02 X10^3/uL (2.7-7.7); Neutrophil % 63.7 % (47-70); Platelet Count 201 K/mm3 (150-450); RBC Distribution Width CV 13.2 % (11.6-14.6); RBC Distribution Width SD 42.5 fl (35.1-43.9); Red Blood Count 5.55 M/mm3 (4.6-6.2); White Blood Count 6.3 K/mm3 (4.4-11.0)
[2023-03-25 10:11] LABS: AST(SGOT) 12 U/L (15-37); Alanine Aminotransfer ALT/SGPT 33 U/L (16-61); Albumin, Serum 3.6 g/dL (3.2-5.0); Alkaline Phosphatase 64 U/L (45-117); Anion Gap 3 (5-15); BUN 15 mg/dL (7-18); BUN/Creat Ratio 16.8 RATIO (10-20); Calcium,Total 9.4 mg/dL (8.5-10.1); Chloride 110 mmol/L (98-107); Cholesterol 188 mg/dL (200); Creatinine, Serum 0.89 mg/dL (0.70-1.30); EST Glomerular Filtration Rate 96 mL/min (>60); Est Glom Filt Rate - Afr Amer 116 mL/min (>60); Globulin 3.7 g/dL (2.2-4.2); Glucose 96 mg/dL (74-106); High Density Lipoprotein 44 mg/dL; Potassium 4.2 mmol/L (3.5-5.1); Protein, Total 7.3 g/dL (6.4-8.2); Sodium Level 142 mmol/L (136-145); Triglycerides 146 mg/dL; Very Low Density Lipoprotein 29 mg/dL (5-40)
[2023-03-25 10:42] LABS: Color, Urine Yellow (Yellow); Glucose, Dipstick Normal (Normal); Ketone-Dipstick Negative (Negative); Leukocyte Esterase-Dipstick Negative /ul (Negative); Nitrite-Dipstick Negative (Negative); Occult Blood-Urine 10 /ul (Negative); Protein-Dipstick Negative (Negative); Urine Bilirubin Dipstick Negative (Negative); Urine Clarity Clear (Clear); Urine Urobilinogen Normal (Normal)
[2023-03-25 10:57] LABS: Microalbumin,Random Urine 5.9 mg/L (NO RANGE EST.); Microalbumin:Creatinine Ratio 4.4 mg/g CRE (<30 mg/g CRE)
[2023-03-27 16:09] LABS: PSA, Total 0.9 ng/mL (0.0-4.0)
== END | disposition home or self-care (01) ==
LOC: LAB 08:51
PROVIDERS: PCP Internal Medicine; Referring Provider Internal Medicine; Visit Provider Internal Medicine
DX: Z12.5 Encounter for screening for malignant neoplasm of prostate (principal); I10 Essential (primary) hypertension
CPT/HCPCS: 36415; 80053; 80061; 81001; 82043; 82570; 84153; 85025

== ENCOUNTER 2023-07-17 17:19 | Emergency (ER) | payer BC, SELFPAY ==
[2023-07-17 17:24] VITALS: BP 157/103; PULSE 92; RESP 18; TEMP 36.1; O2SAT 97; BMI 32.3
--- NOTE | 2023-07-17 17:55 | RAD_ITS ---
STUDY: X-RAY - RIGHT KNEE REASON FOR EXAM: Male, 52 years old. pain TECHNIQUE: 4 view(s) of the knee. COMPARISON: None. FINDINGS: Normal visualized distal femur. Normal visualized proximal tibia and fibula. Normal proximal tibiofibular articulation. There is no demonstrated fracture. Normal medial femorotibial compartment. Normal lateral femorotibial compartment. There is mild degenerative arthrosis of the patellofemoral articulation. There is no demonstrated joint effusion. The soft tissue structures are unremarkable. RAD/Knee 4 or More Views IMPRESSION: No definite acute or significant abnormality seen. Electronically Signed: Irineo Jay MD at 19:26 EDT ,
--- NOTE | 2023-07-17 18:45 | EDS_ITS ---
HPI History of Present Illness Chief Complaint: Lower Extremity Injury Narrative Narrative: 52-year-old male presenting with right knee pain. Patient states that he stepped into a groundhog hole while he was walking to the grass and notes that his knee popped laterally. He states he popped it back into place. He states has been able to ambulate on it since then. He states he did not want to come in but his family urged him to get it checked out. He does have some bruising and swelling. Complains of knee pain mostly on the medial aspect of the left knee. No numbness or tingling. No direct trauma. [facility] Medical History HTN (hypertension) Home Medications ?Medication ?Instructions ?Recorded ?Last Taken ?Type amlodipine 5 mg tablet 5 mg PO DAILY #30 tabs 05/16/21 07/17/23 Rx Allergy/AdvReac Type Severity Reaction Status Date / Time ampicillin Allergy Rash Verified 07/17/23 17:24 Social History Smoking Status: Never smoker ROS ROS ED Constitutional Constitutional ED: Denies chills, fever(s) or sweats Eyes Eyes: Denies blurry vision or change in vision ENT ENT ED: Denies ear pain or sore throat Cardiovascular Cardiovascular: Denies chest pain, palpitations or racing heartbeat Respiratory/Chest Respiratory/Chest: Denies cough, dyspnea or sputum Gastrointestinal Gastrointestinal: Denies abdominal pain, constipation, diarrhea, nausea or vomiting Genitourinary Genitourinary ED: Denies dysuria, hematuria or urinary frequency Musculoskeletal Musculoskeletal: Reports other Details: Left knee pain ; Denies arthralgias, myalgias or neck pain Integumentary Denies abscess, Abrasions or rash Neurologic Neurologic: Denies headache(s), paresthesias or weakness Psychiatric Psychiatric: Denies anxiety, depression, suicidal ideation or suicidal thoughts Endocrine Endocrinology: Denies polydipsia or polyuria EXAM Physical Exam Const Vital Signs: 07/17/23 17:24 Temperature 97 F L Temperature Source Temporal Pulse Rate 92 Respiratory Rate 18 Blood Pressure 157/103 H Blood Pressure Mean 121 Pulse Ox 97 Oxygen Delivery Method Room Air Positive well nourished General Appearance ED: NAD HEENT Reports moist mucous membranes normocephalic and atraumatic Resp normal respiratory effort Cardio regular rate and regular rhythm Extremity Extremity Narrative: Left knee anterior posterior drawer normal. There is pain elicited with valgus strain. Tenderness to palpation on the medial joint line. There is no patellar tenderness. Bruising and swelling noted infrapatellar region. Patient able to stand and bear weight. Neuro oriented x3 Sensorium / Orientation: alert Motor Exam: strength 5/5 throughout Psych mental status grossly normal Skin no wounds MDM MDM MDM Narrative Medical decision making narrative: Patient presenting with right knee pain. Based on his exam I believe he strained his MCL and possibly meniscus of the right leg. Patient declines analgesia and states he is Tylenol ibuprofen at home. 4 views of the right knee on my interpretation show no acute fractures or subluxation. There are some ossicles noted posteriorly to the right knee. He does not believe he needs crutches and he will place in a knee immobilizer. He will be given orthopedic follow-up. Return precautions were discussed. Lab Data Attestation: I reviewed the patient's lab results. Discharge Plan Triage Chief Complaint: Lower Extremity Injury ED Provider: Jhonathan Malin Dx/Rx/DC Orders Clinical Impression: MCL sprain of right knee Instructions: ED Knee Sprain Ligaments Prescriptions: No Action amlodipine 5 mg tablet 5 mg PO DAILY Qty: 30 0RF Primary Care Provider: Naida Butler Referrals: Venu Thakur DO [Med Staff - Active Staff] - As soon as possible Naida Butler DO [Primary Care Provider] - Print Language: Turkmen Disposition Disposition: Home, Self Care
[2023-07-17 19:07] VITALS: BP 124/68; PULSE 76; RESP 16; TEMP 37; O2SAT 98
== END 2023-07-17 19:09 | disposition home or self-care (01) ==
PROVIDERS: Emergency Provider Student in an Organized Health Care Education/Training Program; PCP Internal Medicine; Visit Provider Student in an Organized Health Care Education/Training Program
DX: S83.411A Sprain of medial collateral ligament of right knee, initial encounter (principal); I10 Essential (primary) hypertension; Z79.899 Other long term (current) drug therapy; W18.42XA Slipping, tripping and stumbling without falling due to stepping into hole or opening, initial encounter
CPT/HCPCS: 73564; 99283

== ENCOUNTER 2024-08-01 06:58 | Day surgery (SDC) | payer OTHER, SELFPAY ==
--- NOTE | 2024-07-30 06:40 | EKG12_ITS ---
Test Reason : PREOP Blood Pressure : */* mmHG Vent. Rate : 74 BPM Atrial Rate : 74 BPM P-R Int : 152 ms QRS Dur : 108 ms QT Int : 378 ms P-R-T Axes : 69 67 31 degrees QTcB Int : 419 ms Normal sinus rhythm Normal ECG Confirmed by Jorge Melendez ([id number]), continuity editor KARINA TOVAR ([id number]) on 07/31/2024 10:13:03 AM Referred By: Amauri Klein Confirmed By: Jorge Melendez
[2024-07-30 07:19] LABS: Absolute Neutrophil Count 4.2 X10^3/uL (2.0-7.7); Basophil# 0.04 X10^3/uL; Basophil% 0.6 % (0-1); Eosinophil# 0.13 X10^3/uL; Eosinophils% 1.9 % (0-5); Hemoglobin 15.1 g/dL (13.0-16.5); Lymphocyte % 22.1 % (19-41); Mean Corp Hgb Conc 32.8 g/dL (32-36); Mean Corpuscular Hgb 28.4 pg (27.0-32.0); Mean Corpuscular Volume 86.5 fL (80-94); Mean Platelet Vol. 12.5 fl (6.2-12.0); Monocyte# 0.85 X10^3/uL; Monocyte% 12.5 % (0-10); NRBC Flagged by Analyzer 0 % (0-5); Neutrophil # 4.22 X10^3/uL (2.7-7.7); Neutrophil % 62.3 % (47-70); Platelet Count 209 K/mm3 (150-450); RBC Distribution Width CV 13.4 % (11.6-14.6); RBC Distribution Width SD 42.4 fl (35.1-43.9); Red Blood Count 5.32 M/mm3 (4.6-6.2); White Blood Count 6.8 K/mm3 (4.4-11.0)
[2024-07-30 07:43] LABS: Anion Gap 11 (5-15); BUN 14 mg/dL (4-19); BUN/Creat Ratio 16.8 RATIO (10-20); Calcium,Total 9.2 mg/dL (7.6-11.0); Carbon Dioxide 23.4 mmol/L (21.0-32.0); Chloride 108 mmol/L (98-108); Creatinine, Serum 0.86 mg/dL (0.70-1.20); EST Glomerular Filtration Rate 105 (>60); Glucose 106 mg/dL (70-99); Sodium Level 142 mmol/L (133-145)
--- NOTE | 2024-07-30 08:33 | PAT.ANESEVAL ---
Pre-Assessment Diagnosis/Proposed Procedure Planned Operative Procedure(s): LEFT SHOULDER ARTHROSCOPY RTC REPAIR Anesthesia History Anesthesia History - senior associate: Anesthesia History - senior associate Hx Hospitalization No 07/26/24 08:54 Any Problems With Anesthesia Yes: N,V 07/26/24 08:54 Cholinesterase deficiency No 07/26/24 08:54 You/Your Family Experience No: ADOPTED 07/26/24 08:54 fever (hyperthermia) with Relationship Recent Exposure to Contagious Disease Does patient have nerve No 07/26/24 08:54 stimulator Patient instructed to have device shut off --Does patient have Pacemaker or ICD? When Was Last Pacemaker Check QUESTION #4 FULL TEXT: You/Your Family Experience fever (hyperthermia) with Anesthesia Last Oral Intake Last Oral intake: Last Oral Intake NPO since Meds taken in AM with sips of water? Meds patient instructed to take am of surgery PONV PONV - senior associate: PONV - senior associate Female No 07/26/24 08:54 HX of Motion Sickness No 07/26/24 08:54 HX of N/V After Surgery Yes 07/26/24 08:54 Non-Smoker Yes 07/26/24 08:54 Duration of Surgery greater Yes 07/26/24 08:54 than 60 minutes Number of Risk Factors 3 07/26/24 08:54 PONV Score Moderate Risk 07/26/24 08:54 Height & Weight Height & Weight: Anesthesia: Height & Weight Height 6 ft 2 in 05/23/24 08:23 Respiratory Assessment Respiratory Assessment - senior associate: Respiratory Tract Infection Hx - senior associate Hx Respiratory Tract Infection No 07/26/24 08:54 STOP Sleep Apnea STOP Sleep Apnea - senior associate: STOP Sleep Apnea - senior associate Hx Hypertension Yes: CONTROLLED WITH MED 07/26/24 08:54 Hx Sleep Apnea No 07/26/24 08:54 CPAP BIPAP Do you snore loudly (louder No 07/26/24 08:54 than talking or can be heard Do you often feel tired/ No 07/26/24 08:54 fatigued/ sleepy during daytime? Has anyone observed you stop No 07/26/24 08:54 breathing during sleep? STOP Results Negative 07/26/24 08:54 QUESTION #5 FULL TEXT : Do you snore loudly (louder than talking or can be heard through closed doors)? Tobacco Use History Tobacco Use History - senior associate: Tobacco Use History - senior associate Tobacco Use Smoking Status Never smoker 07/26/24 08:54 Hx Tobacco Use No 07/26/24 08:54 Years Smoking Packs Smoked per Day Smoking Cessation Date was within the last 15 years Hx Smoking Cessation Date Hx Smoking Cessation Counseling Hematologic Medial History Hematologic Hx - senior associate: Hematologic Medical Hx - potato loader Hx of Blood Transfusion No 07/26/24 08:54 Hx of Transfusion in last 3 No 07/26/24 08:54 Months Date of Last Transfusion (if within last 3 months) Ever experience any problems No 07/26/24 08:54 with transfusion(s)? Specify any problems Hx of Preganancy in last 3 N/A 07/26/24 08:54 Months Nurse Filling Out Transfusion DSCHRIBER 07/26/24 08:54 & Questions: Date: 07/26/24 07/26/24 08:54 Time: 08:55 07/26/24 08:54 Patient unable to answer at this time (ie. confused, unrespo /Reproduction History /Reproductive History - senior associate: /Reproductive Hx- senior associate Hx Now No 07/26/24 08:54 Gestational Age (in weeks): EDC: Hx Hx Para Hx Section SAB No 07/26/24 08:54 PFSH Medical History (Updated 07/26/24 @ 09:32 by Kiya Aldrich) History of varicocele Non-smoker Adopted History of stress test HTN (hypertension) Home Medications ?Medication ?Instructions ?Recorded ?Last Taken ?Type lisinopril 20 mg tablet 20 mg PO QHS 05/23/24 Unknown History Allergy/AdvReac Type Severity Reaction Status Date / Time ampicillin Allergy Rash Verified 07/26/24 08:52 Surgical History (Updated 07/26/24 @ 09:01 by Kiya Aldrich) Hx of LASIK History of ear surgery Social History (Updated 05/23/24 @ 08:24 by Gaby Larose) Smoking Status: Never smoker alcohol intake: never substance use type: does not use Audit: Pertinent Findings Pertinent Findings EKG Perinent findings: 05/15/2021. Sinus rhythm 98 bpm. Stress test pertinent findings: 04/13/2020. Stress EKG negative for ischemia. Nuclear portion negative for ischemia or infarct. EF 58%. Recommendation Anesthesia Recommendation Anesthesia recommendation: OPTIMIZED for anesthesia
[2024-08-01] VITALS (9 sets, daily range): BP systolic 120–164; BP diastolic 81–105; PULSE 71–92; RESP 16–20; TEMP 36.1–36.6; O2SAT 91–99; BMI 33.7
--- OUTSIDE RECORDS SUMMARY | 2024-08-01 07:02 | XMS RPT_ITS | CCD ---
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 (more content not included)... Normal [facility] MRI SHOULDER W/O CONTRAST LE [facility] 05-31-2024 MRI SHOULDER W/O CONTRAST LEFT ORIGINAL EXAMINATION: MRI OF THE LEFT SHOULDER WITHOUT CONTRAST 05/31/2024 11:20 am TECHNIQUE: Multiplanar multisequence MRI of the left shoulder was performed without the administration of intravenous contrast. COMPARISON: None. HISTORY: ORDERING SYSTEM PROVIDED HISTORY: Reason for Exam: Strain of unspecified muscle, fascia and tendon at shoulder and upper arm level, left arm, initial encounter FINDINGS: There is no evidence of acute fracture, osteonecrosis or suspicious marrow lesion. Mild AC joint degenerative changes. Small AC joint effusion. Mild capsular hypertrophy and edema. A type 1 acromial undersurface is seen. The coracoclavicular and coracoacromial ligaments are intact. There is subdeltoid subacromial bursitis. The teres minor is intact. Subscapularis tendinosis with low-grade interstitial and undersurface fraying. Infraspinatus tendinosis with undersurface and interstitial tearing most pronounced involving the upper fibers with a sentinel cyst dissecting to the musculotendinous junction measuring approximately 0.8 x 0.5 x 1.4 cm. Intermediate grade full-thickness supraspinatus tendon tear involving the anterior 2/3 fibers with retraction approximately 2 cm, query rim rent type. Incomplete width tear, the posterior fibers remain intact. The long head of the biceps tendon is maintained in anatomic location, without tear. There is no biceps tenosynovitis. There is no acute Hill-Sacks or Bankart lesion. Suboptimal evaluation of the labrum with lack of intra-articular contrast. There is irregular morphology of the posterior and posteroinferior labrum which could be relation to degeneration and/or tearing. The anterior superior labrum is diminutive. No high-grade chondral lesions are present in the glenohumeral joint. There is no glenohumeral joint effusion or synovitis. The suprascapular and spinoglenoid notches as well as the quadrilateral space have preserved fat planes. There is no evidence of muscle atrophy or acute muscle denervation. IMPRESSION: 1. Intermediate grade full-thickness supraspinatus tendon tear involving the anterior 2/3 fibers with retraction approximately 2 cm, query rim rent type. Incomplete width tear, the posterior fibers remain intact. 2. Infraspinatus tendinosis with undersurface and interstitial tearing most pronounced involving the upper fibers with a sentinel cyst dissecting to the musculotendinous junction measuring approximately 0.8 x 0.5 x 1.4 cm. 3. Subscapularis tendinosis with low-grade interstitial and undersurface fraying. 4. Irregular morphology and signal of the posterior and posteroinferior labrum which could be relation to degeneration and/or tearing. The anterior superior labrum is diminutive. If there is clinical concern for labral tear correlation should be made with MRI. 5. Mild AC joint arthrosis with AC joint effusion and some capsular hypertrophy/edema, could reflect capsular injury. Interpreted by: Kary Wheatley Preliminary Report By: Kary Wheatley Electronically signed By Kary Wheatley Dictated Date: 05/31/2024 11:24:42 AM Prelim Date: 05/31/2024 11:54:54 AM Sign Date: 05/31/2024 11:54:54 AM Ordering Provider: DARRELL FLOWERS [facility] Urgent Care Visit Reporton 0 05-31-2024 Urgent Care Visit Report [facility] [address], [address] [place] [address] OFFICE VISIT Date of Service: 05/31/24 MR#: [id number] Acct: [id number] Name: PEPITO DUNN Rep #: [id number] : 1970 Provider: CHRIST Ruiz Age/Sex: 53/M Location: [facility] Status: Signed Intake Vital Signs 05/23/24 08:23 05/31/24 15:35 Height 6 ft 2 in Position Sitting Respiration 15 Pulse 81 Pulse Source NIBP Temp 98.2 F Temp Source Oral Pulse Oximetry (%) 97 Oxygen Delivery Method room air 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 Chief Complaint: WC f/u left shoulder injury 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 Patient states that he has had a lot of improvement with pain and range of motion to the left shoulder. He states that he no longer has restriction to range of motion however some movements do continue to cause pain. Additionally patient did have an MRI today which shows a full-thickness tear of the supraspinatus. Patient is requesting to have some of his restrictions removed so that he may return back to his normal job. No other associated symptoms or alleviating/aggravating factors. ROS Const Constitutional: No other (6 system ROS completed with pertinent findings in the HPI otherwise normal.) Exam Const General: cooperative and healthy appearing Skin General: no rashes or lesions noted Neuro General: patient alert Extrem General: full ROM and capillary refill normal Other: Crossarm testing and Apley scratch test negative. Appropriate sensation light touch intact throughout. Psych Appearance: grossly normal Mental Status: mental status grossly normal Coding Level of Care Code Off vis,est,level 3 Diagnoses Left shoulder strain S46.912A Assessment and Plan Assessment and Plan (1) Left shoulder strain: Status: Acute Plan: [employer] 14 filled out releasing patient back to work today with restrictions of no over shoulder height or below knee level work. Form C9 filled out requesting orthopedic referral. Patient advised of symptomatic management techniques as well as potential red flags and when appropriate to report to the ED. Patient given at home stretching exercises to complete. Patient verbalized understanding and agreement with all the above. 05/31/24 3449 Date Darrell Gillis Signature: Date (if applicable) CC: Normal [facility] Shoulder min 2 Viewson 05-23 Shoulder min 2 Views [facility] Services [address] [place], [place] [id number] Shoulder min 2 Views MR#: [id number] Acct: [id number] Name: PEPITO DUNN Rep #: [id number] : 1970 M 53 From: Junior ramirez MD PCP: Dr. Naida Lara DO Status: DEP AMB Study: Shoulder min 2 Views Date of Exam: 05/23/24 Exam# [id number] Ordering Dr: Darrell Flowers PROCEDURE: SHOULDER MIN 2 VIEWS 05/23/2024 REASON FOR EXAM: SHOULDER INJURY, PULLED MUSCLE TECHNIQUE: Four views of the left shoulder were obtained following a fall. COMPARISON: None FINDINGS: Bones: Unremarkable Joints: Normal alignment. Joint spaces preserved. No arthropathic features. Soft tissues: Soft tissues are unremarkable. Other: RAD/Shoulder min 2 Views IMPRESSION: NO ACUTE FRACTURE OR DISLOCATION. Reading Location: [place] [address] CC: CHRIST Ruiz; Dr. 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 Normal [facility] Urgent Care Visit Reporton 0 05-23-2024 Urgent Care Visit Report [facility] [address], [address] [place] [address] OFFICE VISIT Date of Service: 05/23/24 MR#: [id number] Acct: [id number] Name: PEPITO DUNN Rep #: [id number] : 1970 Provider: CHRIST Ruiz Age/Sex: 53/M Location: [facility] Status: Signed Intake Vital Signs 07/17/23 17:24 05/23/24 08:22 Height 6 ft 2 in 6 ft 2 in Weight: 267 lb 2 oz BMI 34.2 BP 142/96 H Blood Pressure Location Rt brachial Position Sitting Respiration 17 Pulse 73 Pulse Source NIBP Temp 98.5 F Temp Source Oral Pulse Oximetry (%) 98 Oxygen Delivery Method room air 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 Chief Complaint: WC new left shoulder injury 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 Is patient in pain?: Yes Allergies ampicillin Allergy (Verified 05/23/24 08:34) Rash Have you fallen in the past year?: No PFS Medical History (Updated 05/23/24 @ 08:41 by Darrell POLO PA) HTN (hypertension) Surgical History (Updated 05/23/24 @ 08:23 by Gaby Larose) No pertinent past surgical history Social History (Updated 05/23/24 @ 08:24 by Gaby Larose) Smoking Status: Never smoker alcohol intake: never substance use type: does not use HPI HPI Chief Complaint: WC new left shoulder injury Details: PEPITO DUNN, is a 53 M who presents to the office today for initial evaluation of a left shoulder injury. Patient states that today while at work he was lifting something off of a machine and felt what he thought is a tear in his left shoulder. Patient states he has limited range of motion to the left arm. He rates his pain a 5-6 out of 10 when using the left arm and a 1-2 out of 10 at rest. He denies previous injuries to the same. No numbness, tingling. No other associated symptoms or alleviating/aggravating factors. ROS Const Constitutional: No other (6 system ROS completed with pertinent findings in the HPI otherwise normal.) Exam Const General: cooperative and healthy appearing Skin General: no rashes or lesions noted Neuro General: patient alert Extrem General: capillary refill normal Other: Abduction of the left arm limited to less than 30 degrees. Crossarm testing and Apley scratch test negative. Appropriate sensation light touch intact throughout. Psych Appearance: grossly normal Mental Status: mental status grossly normal Coding Level of Care Code Off vis,new,level 4 Diagnoses Left shoulder strain S46.912A Assessment and Plan Assessment and Plan (1) Left shoulder strain: Status: Acute Plan: First report of injury form as well as [employer] 14 filled out releasing patient back to work today with restrictions of no lifting/pushing/pulling greater than 5 pounds, no use of the left arm and no over shoulder height or below knee level work. Form C9 filled out requesting MRI of the left shoulder. Encouraged to get plenty of rest, drink lots of clear liquids, and use Tylenol or Ibuprofen (unless contraindicated) for comfort. Patient also educated on other symptomatic management techniques. To be seen in 1 week for reevaluation. Patient advised of potential red flags and when appropriate to report to the ED. Patient verbalized understanding and agreement with all the above. Orders: Orders Shoulder min 2 Views Today S49.90XA - Unspecified injury of shoulder and upper arm, unspecified arm, initial encounter Medications: Discontinued amlodipine Discontinued Reason: Order Changed 5 mg PO DAILY 30 tabs 0RF Clinical Quality Measures Falls Risk Screening/Assistive Devices Have you fallen in the past year?: No 05/23/24 0915 Date Darrell Gillis Signature: Date (if applicable) CC: Normal [facility] Absolute lymphocyte countOrd ered By: Naida Lara on 03-25-2023 Lymphocytes Auto (Unsp spec) [#/Vol] 1.43 10*3/uL 0.83-4.51 [facility] Automated lymphocyte count a s percentage of total leukocytesOrdered By: Naida Lara on 03-25-2023 Lymphocytes/100 WBC Auto (Unsp spec) 22.7 % 19-41 [facility] Basophil percentageOrdered B y: Naida Lara on 03-25-2023 Basophil percentage 0 SEEN /hpf 0-5 [facility] Basophils/100 WBC (Bld) 0.6 % 0-1 [facility] Bilirubin [Mass/Vol] 0.60 mg/dL 0.20-1.00 [facility] Comment on above: For patients on eltr ombopag therapy, use of Dimension [place] TBIL is not recommended. Chloride [Moles/Vol] 110 mmol/L 98-107 [facility] Cholesterol [Mass/Vol] 188 mg/dL <200 [facility] Comment on above: <200 mg/dL Desirable 200-240 mg/dL Borderline >240 mg/dL High Risk Eosinophils/100 WBC (Bld) 2.1 % 0-5 [facility] Glucose [Mass/Vol] 96 mg/dL 74-106 [facility] Hemoglobin (Bld) [Mass/Vol] 15.7 g/dL 13.0-16.5 [facility] Monocytes/100 WBC (Bld) 10.3 % 0-10 [facility] Neutrophils (Bld) [#/Vol] 4.0 10*3/uL 2.0-7.7 [facility] Neutrophils/100 WBC (Bld) 63.7 % 47-70 [facility] Potassium [Moles/Vol] 4.2 mmol/L 3.5-5.1 [facility] Protein [Mass/Vol] 7.3 g/dL 6.4-8.2 [facility] Sodium [Moles/Vol] 142 mmol/L 136-145 [facility] Triglyceride [Mass/Vol] 146 mg/dL <199 [facility] Comment on above: The drugs N-Acetylcy steine and Metamizole may falsely depress this assay.Serum Triglycerides Reference Interval Normal <150 mg/dL Borderline high 150 - 199 mg/dL High 200 - 499 mg/dL Very High > or = 500 mg/dL WBC (Bld) [#/Vol] 6.3 10*3/uL 4.4-11.0 [facility] Bilirubin Test strip Ql (U)O rdered By: Naida Lara on 03-25-2023 Bilirubin Ql (U) Negative Negative [facility] Determination of erythrocyte mean corpuscular volume (MCV)Ordered By: Naida Lara on 03-25-2023 MCV (RBC) [Entitic vol] 87.7 fL 80-94 [facility] Erythrocyte distribution wid th ratioOrdered By: Naida Lara on 03-25-2023 Erythrocyte distribution width (RBC) [Ratio] 13.2 % 11.6-14.6 [facility] Erythrocyte distribution wid th standard deviationOrdered By: Naida Lara on 03-25-2023 Erythrocyte distribution width (RBC) [Entitic vol] 42.5 fL 35.1-43.9 [facility] Hematocrit Auto (Bld) [Volum e fraction]Ordered By: Naida Lara on 03-25-2023 Hematocrit (Bld) [Volume fraction] 48.7 % 40-54 [facility] Immature granulocytes/100 WB C Auto (Bld)Ordered By: Naida Lara on 02-03-2024 Immature granulocytes/100 WBC (Bld) 0.600 % 0.0-0.9 [facility] Comment on above: IG% - Immature Granu locytes (promyelocytes, myelocytes and metamyelocytes) > 1% indicates that a LEFT SHIFT is Present. Ketones Test strip Ql (U)Ord ered By: Naida Lara on 03-25-2023 Ketones Ql (U) Negative Negative [facility] Laboratory - Chemistry and C hemistry - challengeOrdered By: Naida Lara on 03-25-2023 Albumin/Creatinine DL <= 1.0 mg/L (24H U) [Ratio] 4.4 mg/g CRE <30 [facility] Albumin/Globulin [Mass ratio] 1.0 {ratio} 0.9-2.4 [facility] ALP [Catalytic activity/Vol] 64 U/L 45-117 [facility] ALT [Catalytic activity/Vol] 33 U/L 16-61 [facility] Cholesterol in HDL (Body fld) [Mass/Vol] 44 mg/dL >40 [facility] Comment on above: The drugs N-Acetylcy steine and Metamizole may falsely depress this assay. Reference Range HDL <40 mg/dL Low HDL Cholesterol HDL >or= 60 mg/dL High HDL Cholesterol Cholesterol in LDL (Body fld) [Moles/Vol] 115 mg/dL 0-130 [facility] Cholesterol in VLDL Calc [Moles/Vol] 29 mg/dL 5-40 [facility] CO2 [Moles/Vol] 29.0 mmol/L 21.0-32.0 [facility] Globulin (S) [Mass/Vol] 3.7 g/dL 2.2-4.2 [facility] Urea nitrogen/Creatinine [Mass ratio] 16.8 mg/mg 10-20 [facility] Laboratory - Hematology and Cell countsOrdered By: Naida Lara on 03-25-2023 MCH (RBC) [Entitic mass] 28.3 pg 27.0-32.0 [facility] MCHC (RBC) [Mass/Vol] 32.2 g/dL 32-36 [facility] Nucleated RBC/100 WBC (Bld) [Ratio] 0 % 0-5 [facility] Platelets (Bld) [#/Vol] 201 10*3/uL 150-450 [facility] Mucus LM Ql (Urine sed)Order ed By: Naida Lara on 03-25-2023 Mucus Ql (Urine sed) 0 SEEN /hpf [facility] Nitrite Test strip Ql (U)Ord ered By: Naida Lara on 03-25-2023 Nitrite Ql (U) Negative Negative [facility] No Panel InformationOrdered By: Naida Lara on 03-25-2023 Estimated GFR (MDRD) Amer 116 mL/min >60 [facility] Comment on above: GFR Calc Estimated GFR (MDRD) Non-Af Amer 96 mL/min >60 [facility] Comment on above: Non- GFR Calc Prostate Specific Antigen Comment . [facility] Comment on above: The percent free PSA is performed on a reflex basis onlywhen the total PSA is between 4.0 and 10.0 ng/mL.Performed at: [id number] [id number] Director: Dequan Rose PhD, Phone: [phone] Prostate Specific Antigen Total 0.9 ng/mL 0.0-4.0 [facility] Comment on above: Christian ECLIA methodol ogy.According to the [place] [employer], Serum PSAshould decrease and remain at undetectable levels afterradical prostatectomy. The AUA defines biochemicalrecurrence as an initial PSA value 0.2 ng/mL or greaterfollowed by a subsequent confirmatory PSA value 0.2 ng/mLor greater. Values obtained with different assay methods orkits cannot be used interchangeably. Results cannot beinterpreted as absolute evidence of the presence or absenceof malignant disease. Urine RBC 0 SEEN /hpf 0-5 [facility] Platelet mean volume Paolo-Ec ker (Bld) [Entitic vol]Ordered By: Naida Lara on 03-25-2023 Platelet mean volume (Bld) [Entitic vol] 11.8 fL 6.2-12.0 [facility] Protein Test strip Ql (U)Ord ered By: Naida Lara on 03-25-2023 Protein Ql (U) Negative Negative [facility] RBC Auto (Bld) [#/Vol]Ordere d By: Naida Lara on 03-25-2023 RBC (Bld) [#/Vol] 5.55 10*6/uL 4.6-6.2 [facility] Serum or plasma calcium pedrito urement (mass/volume)Ordered By: Naida Lara on 03-25-2023 Calcium [Mass/Vol] 9.4 mg/dL 8.5-10.1 [facility] Serum or plasma creatinine m easurement (mass/volume)Ordered By: Naida Lara on 03-25-2023 Creatinine [Mass/Vol] 0.89 mg/dL 0.70-1.30 [facility] Comment on above: The validity of the calculated GFR & GFRAA in patients over 70 years has not been determined. Clinical correlation is essential. Serum or plasma urea nitroge n measurement (mass/volume)Ordered By: Naida Lara on 03-25-2023 Urea nitrogen [Mass/Vol] 15 mg/dL 7-18 [facility] Squamous epithelial cells de tection in urine sediment by light microscopyOrdered By: Naida Lara on 03-25-2023 Epithelial cells.squamous LM Ql (Urine sed) 0 SEEN /hpf 0-5 [facility] Thin prep Papanicolaou smear with manual screeningOrdered By: Naida Lara on 03-25-2023 Thin prep Papanicolaou smear with manual screening 3.6 g/dL 3.2-5.0 [facility] Thin prep Papanicolaou smear with manual screening 12 U/L 15-37 [facility] Thin prep Papanicolaou smear with manual screening 3 5-15 [facility] Thin prep Papanicolaou smear with manual screening 5.9 mg/L NO RANGE EST. [facility] Urine blood detectionOrdered By: Naida Lara on 03-25-2023 RBC Ql (U) 10 /ul Negative [facility] Urine clarityOrdered By: Carolyn Lara on 03-25-2023 Clarity (U) Clear Clear [facility] Urine color determinationOrd ered By: Naida Lara on 03-25-2023 Color (U) Yellow Yellow [facility] Urine creatinine measurement (mass/volume)Ordered By: Naida Lara on 03-25-2023 Creatinine (U) [Mass/Vol] 134.00 mg/dL NO RANGE EST. [facility] Urine glucose detectionOrder ed By: Naida Lara on 03-25-2023 Glucose Ql (U) Normal mg/dl Normal [facility] Urine leukocyte esterase det ection by dipstickOrdered By: Naida Lara on 03-25-2023 Leukocyte esterase Test strip Ql (U) Negative Negative [facility] Urine pHOrdered By: Naida Lara on 03-25-2023 pH (U) 5.0 [pH] 5.0 - 8.0 [facility] Urine sediment bacteria coun t by microscopy (number/high power field)Ordered By: Naida Lara on 03-25-2023 Bacteria LM.HPF (Urine sed) [#/Area] 0 /[HPF] None Seen [facility] Urine specific gravity measu rementOrdered By: Naida Lara on 03-25-2023 Specific gravity (U) [Rel density] 1.020 1.002-1.030 [facility] Urine urobilinogen measureme ntOrdered By: Naida Lara on 03-25-2023 Urobilinogen Ql (U) Normal mg/dl Normal [facility] CNOVon 01[facility]20[facility] PEPITO DUNN ([id number]) 1970 M Date Time Provider Department 01/22/22 8:30 AM SANDRA GONSALES [facility] During your visit today, we recorded the following information about you: Temperature Pulse Respiration Blood pressure 98.1 degrees 91/minute 20/minute 146/98 Weight 113.9 kg Sandra Gonsales APRN.CNP 01/22/2022 9:35 AM Signed Subjective The history is provided by the patient. No solutions delivery consultant was used. HPI Pepitonatali CentenoMona is a 51 year old male who [...] have confirmed and edited as necessary, the [facility] Review of Systems Constitutional: Negative for chills [...] warranting prompt ER evaluation. Sandra Gonsales APRN.WINSTON Gonsales APRN.WINSTON 01/22/2022 9:25 AM Signed Make sure to finish all of the [...] use * Follow up with primary care (more content not included)... Normal [facility] STREP A MOLECULAR (POC)on Procedural Control Valid [facility] Strep A (POCT) Positive Abnormal Negative [facility] Absolute lymphocyte counton 05-15-2021 Lymphocytes Auto (Unsp spec) [#/Vol] 1.39 10*uL 0.83-4.51 [facility] Work Phone: Basophil percentageon 2021 Bilirubin [Mass/Vol] 0.40 mg/dL 0.20-1.00 [facility] Work Phone: Comment on above: For patients on eltr ombopag therapy, use of Dimension [place] TBIL is not recommended. Chloride [Moles/Vol] 104 mmol/L 98-107 [facility] Work Phone: Glucose [Mass/Vol] 143 mg/dL 74-106 [facility] Work Phone: Comment on above: Fasting Glucose resu lt greater than or equal to 126 mg/dL suggests DIABETES MELLITUS per A.D.A. criteria. Potassium [Moles/Vol] 3.4 mmol/L 3.5-5.1 [facility] Work Phone: Comment on above: Slight Hemolysis, Re sult may be falsely increased. Protein [Mass/Vol] 7.4 g/dL 6.4-8.2 [facility] Work Phone: Sodium [Moles/Vol] 140 mmol/L 136-145 [facility] Work Phone: Basophils/100 WBC (Bld) 0.5 % 0-1 [facility] Work Phone: Eosinophils/100 WBC (Bld) 1.5 % 0-5 [facility] Work Phone: Neutrophils (Bld) [#/Vol] 5.7 10*3/uL 2.0-7.7 [facility] Work Phone: Neutrophils/100 WBC (Bld) 72.5 % 47-70 [facility] Work Phone: WBC (Bld) [#/Vol] 7.8 10*3/uL 4.4-11.0 [facility] Work Phone: Blood erythrocytes count (nu mber/volume)on 05-15-2021 RBC (Bld) [#/Vol] 5.44 10*6/uL 4.6-6.2 [facility] Work Phone: Blood hemoglobin measurement (mass/volume)on 05-15-2021 Hemoglobin (Bld) [Mass/Vol] 16.5 g/dL 13.0-16.5 [facility] Work Phone: Blood lymphocytes/100 leukoc yteson 05-15-2021 Lymphocytes/100 WBC (Bld) 17.8 % 19-41 [facility] Work Phone: Blood monocytes/100 leukocyt eson 05-15-2021 Monocytes/100 WBC (Bld) 7.3 % 0-10 [facility] Work Phone: Blood platelet mean volumeon 05-15-2021 Platelet mean volume (Bld) [Entitic vol] 12.1 fL 6.2-12.0 [facility] Work Phone: Determination of erythrocyte mean corpuscular volume (MCV)on 05-15-2021 MCV (RBC) [Entitic vol] 86.4 fL 80-94 [facility] Work Phone: Direct bilirubinon Bilirubin.direct [Mass/Vol] 0.06 mg/dL 0.00-0.30 [facility] Work Phone: Hematocrit Auto (Bld) [Volum e fraction]on 05-15-2021 Hematocrit (Bld) [Volume fraction] 47.0 % 40-54 [facility] Work Phone: Laboratory - Chemistry and C hemistry - challengeon 05-15-2021 ALP [Catalytic activity/Vol] 74 U/L 45-117 [facility] Work Phone: ALT [Catalytic activity/Vol] 41 U/L 16-61 [facility] Work Phone: CO2 [Moles/Vol] 28.0 mmol/L 21.0-32.0 [facility] Work Phone: Globulin (S) [Mass/Vol] 3.7 g/dL 2.2-4.2 [facility] Work Phone: Lipase [Catalytic activity/Vol] 82 U/L 73-393 [facility] Work Phone: Urea nitrogen/Creatinine [Mass ratio] 12.6 mg/mg 10-20 [facility] Work Phone: Laboratory - Hematology and Cell countson 05-15-2021 Erythrocyte distribution width (RBC) [Entitic vol] 41.7 fL 35.1-43.9 [facility] Work Phone: Erythrocyte distribution width (RBC) [Ratio] 13.3 % 11.6-14.6 [facility] Work Phone: Immature granulocytes/100 WBC (Bld) 0.400 % 0.0-0.9 [facility] Work Phone: Comment on above: IG% - Immature Granu locytes (promyelocytes, myelocytes and metamyelocytes) > 1% indicates that a LEFT SHIFT is Present. MCH (RBC) [Entitic mass] 30.3 pg 27.0-32.0 [facility] Work Phone: Nucleated RBC/100 WBC (Bld) [Ratio] 0 % 0-5 [facility] Work Phone: MCHC Auto (RBC) [Mass/Vol]on 05-15-2021 MCHC (RBC) [Mass/Vol] 35.1 g/dL 32-36 [facility] Work Phone: No Panel Informationon 05-15 D-Dimer Quantitative (PE/DVT) 0.42 FEU/ug/m 0.27-0.49 [facility] Work Phone: Comment on above: NORMAL D-Dimer level (<0.50) indicates no DVT or PE. Estimated Creatinine Clearance Calc 107.47 ml/min [facility] Work Phone: Estimated GFR (MDRD) Amer 108 mL/min >60 [facility] Work Phone: Comment on above: GFR Calc Estimated GFR (MDRD) Non-Af Amer 90 mL/min >60 [facility] Work Phone: Comment on above: Non- GFR Calc Troponin I High Sensitivity 6 pg/mL 3.0-78.0 [facility] Work Phone: Comment on above: Please Note: New Kendra t Units and Gender Specific Reference Ranges. For more information see Policy Stat Procedure Sharon High Sensitivity Troponin (TNIH) and attachments. Platelets bldon 05-15-2021 Platelets (Bld) [#/Vol] 230 10*3/uL 150-450 [facility] Work Phone: Serum or plasma albumin pedrito urement (mass/volume)on 05-15-2021 Albumin [Mass/Vol] 3.7 g/dL 3.2-5.0 [facility] Work Phone: Serum or plasma calcium pedrito urement (mass/volume)on 05-15-2021 Calcium [Mass/Vol] 8.7 mg/dL 8.5-10.1 [facility] Work Phone: Serum or plasma creatinine m easurement (mass/volume)on 05-15-2021 Creatinine [Mass/Vol] 0.95 mg/dL 0.70-1.30 [facility] Work Phone: Comment on above: The validity of the calculated GFR & GFRAA in patients over 70 years has not been determined. Clinical correlation is essential. Serum or plasma urea nitroge n measurement (mass/volume)on 05-15-2021 Urea nitrogen [Mass/Vol] 12 mg/dL 7-18 [facility] Work Phone: Thin prep Papanicolaou smear with manual screeningon 05-15-2021 Thin prep Papanicolaou smear with manual screening 20 U/L 15-37 [facility] Work Phone: Comment on above: Slight Hemolysis, Re sult may be falsely increased. Thin prep Papanicolaou smear with manual screening 8 5-15 [facility] Work Phone: EMERGENCY REPORTon EMERGENCY REPORT [facility] EMERGENCY ROOM REPORT NAME ACCOUNT SEX AGE ADMIT DISCHARGE PT MED. RECORD# NUMBER DATE DATE TYPE MONA, [id number] Paola 49 04/11/20 2 PEPITO Wall [id number] ROOM: [id number] DATE OF : 1970 DICTATING PHYSICIAN: Javier Marte HISTORY OF PRESENT ILLNESS: The patient came in complaining of chest pain. He has had chest pain in his left chest area. It comes and goes. He said it lasts for a short period of time and then goes away. It is not radiating. Sometimes when he pushes he can reproduce it and sometimes not. He did complain of shortness of breath. He says it is more of a sharp pain. He says it goes between a 4 to an 8 to nothing. He has never had a stress test or a heart catheterization. His blood pressure has been elevated here. He has not been to a doctor for several years. He does not know his cholesterol status, and he states he does not think he is diabetic; however, his glucose is 147. PAST SURGICAL HISTORY: He had ear surgery as a child and also varicose vein surgery. FAMILY HISTORY: His family history is unknown; he is adopted. SOCIAL HISTORY: He does not smoke or drink. REVIEW OF SYSTEMS: Ten systems were reviewed and were negative except as mentioned above. PHYSICAL EXAMINATION: He is an awake, alert and oriented male in no acute distress. Head is normocephalic, atraumatic. Eyes: Pupils are equal, round and reactive to light. Extraocular muscles are intact. Nares are patent. Throat has good oral moisture. Heart rate is regular without murmur. S1 is equal to S2. No S3 or S4 appreciated. Lungs are clear to auscultation bilaterally. No rales, rhonchi or retractions. Abdomen is soft, nontender and nondistended. Skin is warm and dry. The patient's initial blood pressure was 172/112. It did remain elevated; it was 164 here in the Emergency Department. His pulse was 96 and respirations 16. He is afebrile. Pulse oximetry is 95% on room air. DIAGNOSTIC DATA: He had an EKG which revealed a rate of 93, normal axis, and no obvious ST elevation or depression. The patient's chest x-ray was unremarkable. His d-dimer was elevated at 945. We did do a CT, which was unremarkable for pulmonary embolism or dissection. His chemistries were unremarkable except for an elevated glucose at 147 and a potassium of 3.3, which is low. White count was normal. The patient's EKG revealed a rate of 93, normal axis, and no obvious ST elevation or depression. Page 1 of 2 PEPITO DUNN [facility] Report PEPITO DUNN : 1970 EMERGENCY DEPARTMENT COURSE AND TREATMENT: In light of the patient's symptoms for 2 days with this chest discomfort which is atypical, however with him not really knowing his risk factors, we will admit him for further evaluation. He was also given an aspirin. DIAGNOSIS: Chest pain - rule out myocardial infarction. Dictated By: Javier Marte DO 04/11/20 11:32 JOB #: [id number] Transcribed By: pk 04/11/20 12:47 Electronically signed by: ISIS Marte D.O. 04/13/20 08:15 Page 2 of 2 PEPITO DUNN [facility] Report Normal [facility] HGB A1C [CCL]on 04-13-2020 Glucose [Mass/Vol] 111 mg/dL Normal [facility] Comment on above: Result Comment: eAG: (Estimated average glucose) is a calculated value from HgbA1c and is guest relations representative of the average blood glucose level in the last 2-3 month period. [facility] [address] [place] [address] Trey Lorenzana III, M.D. [id number] Performed By: #### 2 25839 #### [place] [id number] HbA1c (Bld) [Mass fraction] 5.5 % Normal 4.3-5.6 [facility] Comment on above: Result Comment: Amer [place] Diabetes Association guidelines indicate that patients with HgbA1c in the range 5.7-6.4% are at increased risk for development of diabetes, and intervention by lifestyle modification may be beneficial. HgbA1c greater or equal to 6.5% is considered diagnostic of diabetes. Performed By: #### 2 04288 #### [place] [id number] Hemoglobin A1con 04-13-2020 HbA1c (Bld) [Mass fraction] 5.5 % Normal 4.3-5.6 [facility] Comment on above: Performed By: #### H BA1C #### [facility] Routine Lab [address] [place], [place] [address] HbA1c (Bld) [Mass fraction] 111 mg/dL Normal [facility] Comment on above: Performed By: #### H BA1C #### [facility] Routine Lab [address] [place] [address] NM CARDIAC STRESS (SPECT) W/ TREADMILLon 04-13-2020 NM CARDIAC STRESS (SPECT) W/TREADMILL [place] [address] Patient: PEPITO DUNN Phone#: : 1970 Age: 49 Gender: M Pt. Type: Out Account: [id number] Location: [place] [facility] Ordering: DR. MARIANNE NEWSOME Exam Date: 04/13/2020/5:36 Family Phys: Charge Code: [id number] Physician: Walthall Order #: [id number] DLP Dose#: PROCEDURE: CARDIAC STRESS SPECT WITH TREADMILL EXERCISE HISTORY: Patient is a 49 old male with atypical chest COMPARISON: None. INDICATIONS: Chest pain TECHNIQUE: Resting and stress SPECT images acquired in the horizontal long, vertical long and short axis views. Protocol: Willy Duration: 09:37 minutes Peak Heart Rate: 164 bpm, which is 94% of maximum predicted heart rate. Workload: 11.0 METs REST DOSE: 11.3 mCi Sestamibi. STRESS DOSE: 34.5 mCi Sestamibi. INTERPRETATION: Resting Images: Resting images showed small area of perfusion defect in the basal inferior wall Stress Images: Stress images showed small area of mild perfusion defect in the basal inferior wall improved from rest images. The rest of the left ventricle has homogeneous radiotracer uptake. Perfusion defect is likely from diaphragmatic attenuation artifact Gated SPECT/wall motion: Gated SPECT showed calculated ejection fraction of 58%. There are no regional wall motion abnormality seen. TID 0.77. Left ventricle appears normal in size and thickness CONCLUSION: 1. Nuclear stress test showed no conclusive evidence of reversible ischemia or infarct. 2. Calculated ejection fraction is 58% with normal wall motion 3. TID ratio is 0.77. Left ventricle appears normal in size and thickness Continued Report - Page 2 of 2 Patient: PEPITO DUNN Phone#: : 1970 Age: 49 Gender: M Pt. Type: Out Account: [id number] Location: 009 Ordering: DR. MARIANNE NEWSOME Exam Date: 04/13/2020/5:36 Family Phys: Charge Code: [id number] Physician: Walthall Order #: [id number] DLP Dose#: Dictated by: HUGO DOBBINS MD on 04/13/2020 at 10:13 Approved by: HUGO DOBBINS MD on 04/13/2020 at 10:19 Normal [facility] NM EXERCISE STRESS TEST (W/C ARDIAC STUDYon 04-13-2020 NM EXERCISE STRESS TEST (W/CARDIAC STUDY [place] [address] Patient: PEPITO DUNN Phone#: : 1970 Age: 49 Gender: M Pt. Type: Out Account: [id number] Location: 009 Ordering: DR. MARIANNE NEWSOME Exam Date: 04/13/2020/7:24 Family Phys: Charge Code: [id number] Physician: Walthall Order #: [id number] DLP Dose#: PROCEDURE: ELECTROCARDIOGRAM STRESS TEST HISTORY: Patient is a 49-year-old male with no past medical history COMPARISON: None. INDICATIONS: Chest pain TECHNIQUE: Electrocardiogram stress test was performed using the protocol listed below. STRESS RESULTS: Protocol: Willy Duration: 09:37minutes Reason for termination: belt slipped down. Resting Heart Rate: 77 bpm. Resting Blood Pressure: 141/89 mmHg Peak Heart Rate: 164 which is 94% of maximum predicted heart rate Peak Blood Pressure: 189/98 ocurring at 02:50 into recovery. Workload: 11.0 METs. Symptoms with stress: Patient not complain of any chest pain with stress. He was able to achieve 94% of target heart rate. Stress test was ended due to technical issues (electrodes detaching) EKG Data EKG at Baseline: EKG at baseline showed sinus rhythm at 76 BPM. Normal EKG EKG with Stress: EKG with stress showed sinus tachycardia at 162 BPM. There are no ST or T- wave changes to suggest exercise induced ischemia CONCLUSION: 1. Patient did not complain of any chest pain with stress. Patient was able to achieve 94% of target heart rate. Stress test was ended due to technical issues 2. Patient was able to achieve good workload capacity. Patient had appropriate heart rate and blood pressure response with stress Continued Report - Page 2 of 2 Patient: PEPITO DUNN Phone#: : 1970 Age: 49 Gender: M Pt. Type: Out Account: [id number] Location: 009 Ordering: DR. MARIANNE NEWSOME Exam Date: 04/13/2020/7:24 Family Phys: Charge Code: [id number] Physician: Walthall Order #: [id number] DLP Dose#: 3. Stress EKG is negative for inducible ischemia 4. Nuclear images will be read and reported separately Dictated by: HUGO DOBBINS MD on 04/13/2020 at 9:48 Approved by: HUGO DOBBINS MD on 04/13/2020 at 9:57 Normal [facility] CT ABD W/CONTRASTon 04-12-19 CT ABD W/CONTRAST [place] [address] Patient: PEPITO DUNN Phone#: : 1970 Age: 49 Gender: M Pt. Type: In Account: [id number] Location: 009 Ordering: DR. MARIANNE NEWSOME Exam Date: 04/12/2020/11:11 Family Phys: Charge Code: [id number] Physician: Walthall Order #: [id number] DLP Dose#: 32.8 PROCEDURE: CT ABDOMEN WITH CONTRAST COMPARISON: None. INDICATIONS: Chest pain. TECHNIQUE: After obtaining the patient's consent, CT images were created with non-ionic intravenous contrast material. All CT scans at this facility use dose modulation, iterative reconstruction, and/or weight based dosing when appropriate to reduce radiation dose to as low as reasonably achievable. IV CONTRAST: Omnipaque 350,80ml TOTAL DOSE: 32.8 CTDIvol(mGy) FINDINGS: LIVER: Normal. No enlargement, atrophy, abnormal density, or significant focal lesion. BILIARY: Normal. No visible dilatation or calcification. PANCREAS: Minimal fat stranding is present adjacent to the pancreatic tail raising the possibility of early pancreatitis. SPLEEN: Normal. No enlargement or focal lesion. KIDNEYS: Normal. No mass, obstruction, or calcification. ADRENALS: Normal. No mass or enlargement. AORTA/VASCULAR: Normal. No aneurysm or dissection. RETROPERITONEUM: Normal. No mass or adenopathy. BOWEL/MESENTERY: Normal. No visible mass, obstruction, or bowel wall thickening. ABDOMINAL WALL: Normal. No mass or hernia. BONES: Normal. No bony lesion or fracture. LUNG BASES: Normal. No visible pulmonary or pleural disease. OTHER: Negative. CONCLUSION: Continued Report - Page 2 of 2 Patient: PEPITO DUNN Phone#: : 1970 Age: 49 Gender: M Pt. Type: In Account: [id number] Location: [facility] Ordering: DR. MARIANNE NEWSOME Exam Date: 04/12/2020/11:11 Family Phys: Charge Code: [id number] Physician: Walthall Order #: [id number] DLP Dose#: 32.8 1. Possibility of early pancreatitis is raised. There is mild peripancreatic fat stranding at the tail. Dictated by: Jessica Hernandez MD on 04/12/2020 at 18:38 Approved by: Jessica Hernandez MD on 04/12/2020 at 18:40 Normal [facility] GLUCOSEon 04-12-2020 Glucose [Mass/Vol] 78 mg/dL Normal 74 - 106 [facility] Comment on above: Performed By: #### 2 52997 ####[facility],[address] [place] [address] LIPID PROFILEon 04-12-2020 Cholesterol [Mass/Vol] 181 mg/dL Normal 0 - 240 [facility] Comment on above: Performed By: #### 2 04477 ####[facility],[address] [place] [address] Cholesterol in HDL [Mass/Vol] 43 mg/dL Normal 40 - 60 [facility] Comment on above: Performed By: #### 2 47104 ####[facility],[address] [place] [address] Cholesterol in LDL [Mass/Vol] 114 mg/dL Normal 0 - 129 [facility] Comment on above: Performed By: #### 2 72449 ####[facility],[address] [place] [address] Cholesterol.total/Chol esterol in HDL [Mass ratio] 4.2 {ratio} Normal 0.0 - 5.0 [facility] Comment on above: Performed By: #### 2 65839 ####[facility],[address] [place] [address] 17061 Lipid 1996 panel Normal [facility] Comment on above: Result Comment: LIPI D PROFILE Performed By: #### 2 00581 ####[facility],[address] [place] [address] 318[address] Triglyceride [Mass/Vol] 121 mg/dL Normal 0 - 150 [facility] Comment on above: Performed By: #### 2 51105 ####[facility],[address] [place] [address] 30943 CBC + DIFFon 04-11-2020 Baso # 0.00 x10EE3/UL Normal 0.00 - 0.[address] [facility] Comment on above: Performed By: #### 2 58351 #### [facility],[address] [place] [address]2213 Basophils/100 WBC (Bld) 0.6 % Normal 0.0 - 2.0 [facility] Comment on above: Performed By: #### 2 08738 #### [facility],[address] [place] [address]1935 CBC + DIFF Normal [facility] Comment on above: Result Comment: CBC- COMPLETE BLOOD COUNT Performed By: #### 2 94893 #### [facility],[address] [place] [address]408 EO # 0.20 x10EE3/UL Normal 0.00 - 0.[address] [facility] Comment on above: Performed By: #### 2 73161 #### [facility],[address] [place] [address] 77969 Eosinophils/100 WBC (Bld) 2.5 % Normal 0.0 - 7.0 [facility] Comment on above: Performed By: #### 2 44447 #### [facility],[address] [place], [place] [address] Erythrocyte distribution width (RBC) [Ratio] 14.0 % Normal 12.0 - 15.6 [facility] Comment on above: Performed By: #### 2 90626 #### [facility],[address] [place] [address] Hematocrit (Bld) [Volume fraction] 43.1 % Normal 40.0 - 52.0 [facility] Comment on above: Performed By: #### 2 92435 #### [facility],[address] [place] [address] 11463 Hemoglobin (Bld) [Mass/Vol] 14.8 g/dL Normal 13.0 - 17.5 [facility] Comment on above: Performed By: #### 2 33626 #### [facility],[address] [place] [address] 65363 Lymph # 1.60 x10EE3/UL Normal 0.80 - 2.[address] [facility] Comment on above: Performed By: #### 2 78282 #### [facility],[address] [place] [address] 93178 Lymphocytes/100 WBC (Bld) 21.2 % Normal 20.0 - 45.0 [facility] Comment on above: Performed By: #### 2 51435 #### [facility],[address] [place] [address] MANUAL DIFF N/A Normal [facility] Comment on above: Performed By: #### 2 03639 #### [facility],[address] [place] [address] MCH (RBC) [Entitic mass] 29 pg Normal 27 - 33 [facility] Comment on above: Performed By: #### 2 14815 #### [facility],[address] [place] [address] MCHC 34 X10 3 Normal 32 - 36 [facility] Comment on above: Performed By: #### 2 65705 #### [facility],[address] [place] [address] MCV (RBC) [Entitic vol] 86 fL Normal 81 - 98 [facility] Comment on above: Performed By: #### 2 01882 #### [facility],[address] [place] [address] [place] # 0.70 x10EE3/UL Normal 0.20 - 1.[address] [facility] Comment on above: Performed By: #### 2 18187 #### [facility],[address] [place] [address] MONOS % 9.3 % Normal 0.0 - 10.0 [facility] Comment on above: Performed By: #### 2 43907 #### [facility],[address] [place], [place] [address] Morphology Ramin (Bld) [Interp] N/A Normal [facility] Comment on above: Result Comment: {CD] Performed By: #### 2 84493 #### [facility],[address] [place] [address] Neut # 4.90 x10EE3/UL Normal 1.50 - 7.[address] [facility] Comment on above: Performed By: #### 2 32444 #### [facility],[address] [place] [address] 47066 Neutrophils/100 WBC (Bld) 66.4 % Normal 46.0 - 76.0 [facility] Comment on above: Performed By: #### 2 65632 #### [facility],[address] [place] [address] 31696 PLATELET 209 x10EE3/UL Normal 150 - 450 [facility] Comment on above: Performed By: #### 2 10332 #### [facility],[address] [place] [address] 28833 Platelet mean volume (Bld) [Entitic vol] 9.8 fL Normal 6.4 - 10.5 [facility] Comment on above: Result Comment: AUTO MATED DIFFERENTIAL Performed By: #### 2 00511 #### [facility],[address] [place] [address] 57265 RBC 5.04 x 10EE6/UL Normal 4.50 - 6.00 [facility] Comment on above: Performed By: #### 2 71702 #### [facility],[address] [place] [address] 62824 WBC 7.4 x 10EE3/UL Normal 4.5 - 10.8 [facility] Comment on above: Performed By: #### 2 42862 #### [facility],[address] [place] [address]344 CHEST 1 VIEWon 04-11-2020 CHEST 1 VIEW [place] [address] Patient: PEPITO DUNN Phone#: : 1970 Age: 49 Gender: M Pt. Type: ER Account: [id number] Location: [facility] Ordering: JAVIER MARTE Exam Date: 04/11/2020/9:11 Family Phys: Charge Code: [id number] Physician: Walthall Order #: [id number] DLP Dose#: PROCEDURE: X-RAY CHEST 1 VIEW COMPARISON: [facility], CT, CHEST PE W CON, 04/11/2020, 10:17. [facility], XR, CHEST PA/LAT, 03/25/2016, 23:08. INDICATIONS: Chest pain. FINDINGS: LUNGS: Normal. No significant pulmonary parenchymal abnormalities. VASCULATURE: Normal. Unremarkable pulmonary vasculature. CARDIAC: Normal. No cardiac silhouette abnormality or cardiomegaly. MEDIASTINUM: Normal. No visible mass or adenopathy. PLEURA: Normal. No effusion or pleural thickening. BONES: Mild leftward curvature of the lower thoracic spine. OTHER: Monitoring leads project across the thorax. CONCLUSION: No acute disease. No significant change has occurred. Dictated by: Bethany Brasher MD on 04/11/2020 at 14:43 Approved by: Bethany Brasher MD on 04/11/2020 at 14:45 Normal [facility] CMP with eGFRon 04-11-2020 AGE 49 years Normal [facility] Comment on above: Performed By: #### 2 24916 #### [facility],[address] [place] [address] 41296 Albumin [Mass/Vol] 3.5 g/dL Normal 3.4 - 5.0 [facility] Comment on above: Performed By: #### 2 05448 #### [facility],[address] [place] [address] 89714 Albumin/Globulin [Mass ratio] 1.0 {ratio} Normal 0.9 - 1.6 [facility] Comment on above: Performed By: #### 2 72532 #### [facility],[address] [place] [address] 74520 ALK PHOS 85 U/L Normal 46 - 116 [facility] Comment on above: Performed By: #### 2 36863 #### [facility],[address] [place] [address] 66037 ALT [Catalytic activity/Vol] 40 U/L Normal 16 - 63 [facility] Comment on above: Performed By: #### 2 76602 #### [facility],[address] [place] [address] 87486 Anion gap [Moles/Vol] 12 mmol/L Normal 10 - 20 [facility] Comment on above: Performed By: #### 2 62539 #### [facility],[address] [place] [address] 34418 AST [Catalytic activity/Vol] 16 U/L Normal 15 - 37 [facility] Comment on above: Performed By: #### 2 49564 #### [facility],[address] [place] [address] 07504 B/C RATIO 14 ratio Normal 0 - 30 [facility] Comment on above: Performed By: #### 2 [id number] #### [facility],[address] [place] [address] 34775 Bilirubin [Mass/Vol] 0.3 mg/dL Normal 0.2 - 1.0 [facility] Comment on above: Performed By: #### 2 [id number] #### [facility],[address] [place] [address] 64197 Calcium [Mass/Vol] 8.4 mg/dL Low 8.5 - 10.1 [facility] Comment on above: Performed By: #### 2 [id number] #### [facility],[address] [place] [address] 54114 Chloride [Moles/Vol] 104 mmol/L Normal 98 - 107 [facility] Comment on above: Performed By: #### 2 [id number] #### [facility],[address] [place] [address] 30977 CMP with eGFR Normal [facility] Comment on above: Result Comment: COMP REHENSIVE METABOLIC PANEL Performed By: #### 2 19804 #### [facility],[address] [place] [address] 73541 CO2 [Moles/Vol] 28.0 mmol/L Normal 21.0 - 32.0 [facility] Comment on above: Performed By: #### 2 59013 #### [facility],[address] [place] [address] 64622 Creatinine [Mass/Vol] 1.0 mg/dL Normal 0.7 - 1.3 [facility] Comment on above: Performed By: #### 2 07718 #### [facility],[address] [place] [address] 57950 GFR/1.73 sq M.predicted among non-blacks MDRD (S/P/Bld) [Vol rate/Area] mL/min/{1.73_m2} Normal 60 - 999 [facility] Comment on above: Performed By: #### 2 47778 #### [facility],[address] [place] [address] 84212 Result Comment: ACCO RDING TO THE NATIONAL KIDNEY DISEASE EDUCATION PROGRAM(NKDE), A NORMAL eGFR IS A VALUE GREATER THAN OR EQUAL TO 60 ML/MIN/1.73 SQ METERS. CHRONIC KIDNEY DISEASE: <60mL/MIN/1.73 SQ METERS KIDNEY FAILURE: <15mL/MIN/1.73 SQ METERS THIS TEST SHOULD ONLY BE USED FOR PATIENTS 18 YEARS OF AGE AND OLDER. Globulin (S) [Mass/Vol] 3.4 g/dL Normal 1.5 - 3.8 [facility] Comment on above: Performed By: #### 2 [id number] #### [facility],[address] [place] [address] 30233 Glucose [Mass/Vol] 147 mg/dL High 74 - 106 [facility] Comment on above: Performed By: #### 2 43133 #### [facility],[address] [place] [address] 95083 Potassium [Moles/Vol] 3.3 mmol/L Low 3.5 - 5.1 [facility] Comment on above: Performed By: #### 2 83528 #### [facility],[address] [place] [address] 39062 Protein [Mass/Vol] 6.9 g/dL Normal 6.4 - 8.2 [facility] Comment on above: Performed By: #### 2 80915 #### [facility],[address] [place] [address] 27955 Sodium [Moles/Vol] 141 mmol/L Normal 136 - 145 [facility] Comment on above: Performed By: #### 2 63107 #### [facility],[address] [place] [address] 11246 Urea nitrogen [Mass/Vol] 14 mg/dL Normal 7 - 18 [facility] Comment on above: Performed By: #### 2 71485 #### [facility],[address] [place] [address] CHEST (PE PROTOCOL)on CT CHEST (PE PROTOCOL) [place] [address] Patient: PEPITO DUNN Phone#: : 1970 Age: 49 Gender: M Pt. Type: ER Account: [id number] Location: [facility] Ordering: JAVIER MARTE Exam Date: 04/11/2020/10:17 Family Phys: Charge Code: [id number] Physician: Walthall Order #: [id number] DLP Dose#: PROCEDURE: CT CHEST WITH CONTRAST FOR PE COMPARISON: [facility], CT, CHEST PE W CON, 03/26/2016, 0:32. INDICATIONS: Chest pain. TECHNIQUE: After obtaining the patient's consent, CT images were obtained with non-ionic intravenous contrast material. Multi-planar images were created to optimize visualization of vascular anatomy with MPR/MIPS and 3D imaging. All CT scans at this facility use dose modulation, iterative reconstruction, and/or weight based dosing when appropriate to reduce radiation dose to as low as reasonably achievable. IV CONTRAST: Omnipaque 350,80ml TOTAL DOSE: 9.4 CTDIvol(mGy) FINDINGS: VASCULATURE: No pulmonary embolism. AORTA: No aortic aneurysm. LUNGS: There are dependent changes. Stable pulmonary lymph node in the minor fissure. IZABELLA: Normal. No mass or adenopathy. MEDIASTINUM: Normal. No mass or adenopathy. CARDIAC: Normal. No enlargement, pericardial thickening, or significant calcification. PLEURA: Normal. No mass or effusion. CHEST WALL: Normal. No mass or axillary adenopathy. LIMITED ABDOMEN: Focal pancreatic atrophy in the pancreatic tail. Questionable atrophy versus edema adjacent to the pancreatic head. There is an accessory left renal artery. BONES: Normal. No bony lesion or fracture. OTHER: Negative. CONCLUSION: Continued Report - Page 2 of 2 Patient: PEPITO DUNN Phone#: : 1970 Age: 49 Gender: M Pt. Type: ER Account: [id number] Location: [facility] Ordering: JAVIER MARTE Exam Date: 04/11/2020/10:17 Family Phys: Charge Code: [id number] Physician: Walthall Order #: [id number] DLP Dose#: 1. No pulmonary embolism. No acute pulmonary parenchymal abnormality. 2. Atrophy versus edema adjacent to the pancreatic head, correlate with laboratory values to evaluate for pancreatitis. Dictated by: Bethany Brasher MD on 04/11/2020 at 15:37 Approved by: Bethany Brasher MD on 04/11/2020 at 15:44 Normal [facility] D-DIMER, QUANTITATIVEon 03-24 D-DIMER QUANT 945 ng/ml High 0 - 230 [facility] Comment on above: Performed By: #### 2 [id number] #### [place] [id number] D-DIMER, QUANTITATIVE Normal [facility] Comment on above: Result Comment: LAMONT T D-DIMER Performed By: #### 2 59975 #### [place] [id number] LIPASEon 04-11-2020 Lipase [Catalytic activity/Vol] 90.0 U/L Normal 73.0 - 393 [facility] Comment on above: Performed By: #### 2 93442 #### [address] [address] TROPONIN I, HIGH SENSITIVITY on 04-11-2020 HS TROPONIN 9.3 pg/mL Normal 0.0 - 76.2 [facility] Comment on above: Performed By: #### 2 83753 #### [facility],[address] [place], [place] [id number] HS TROPONIN 10.6 pg/mL Normal 0.0 - 76.2 [facility] Comment on above: Performed By: #### 2 92389 ####[facility],[address] [place], [place] [id number] HS TROPONIN 8.6 pg/mL Normal 0.0 - 76.2 [facility] Comment on above: Result Comment: { SP ECIMEN SEVERELY HEMOLYZED Performed By: #### 2 47534 #### [facility],[address] [place], [place] [id number] HS TROPONIN 8.1 pg/mL Normal 0.0 - 76.2 [facility] Comment on above: Performed By: #### 2 28818 ####[facility],[address] [place], [place] [id number] Rapid Flu (59189 x 2)Ordered By: Saritha Mancia on 03-21-2017 FLUAV Ag IA Ql (Throat) Negative Normal [facility] Work Phone: Comment on above: Negative FLUAV Ag IA Ql (Throat) Negative Normal [facility]; [facility] Work Phone: Comment on above: Negative Rapid Strep Test, Office ([phone])Ordered By: Saritha Mancia on 03-21-2017 S. pyogenes Ag EIA Ql (Throat) Negative Normal [facility]; [facility] Work Phone: S. pyogenes Ag IA Ql (Unsp spec) Negative Normal [facility] Work Phone: Troponin-IOrdered By: Supervisor Diagnostic on 02-10-2014 Troponin I.cardiac mass conc ng/mL Normal [facility] Work Phone: Comment on above: TROPONIN-I EXPECTED VALUES <0.05 NEGATIVE 0.06 - 0.59 AT RISK OF MD > OR = 0.60 SUGGEST MD Basic Metabolic Profile (BMP )Ordered By: Supervisor Diagnostic on 02-09-2014 Calcium mass conc 8.4 mg/dL Abnormal 8.5-10.1 [facility] Work Phone: Chloride molar conc 108 mmol/L Abnormal 98-107 [facility]pr [facility] Work Phone: CO2 molar conc 25.0 mmol/L Normal 21.0-32.0 [facility] Work Phone: Creatinine mass conc 1.1 mg/dL Normal 0.8-1.3 [facility] Work Phone: GFR/1.73 sq M predicted among non-blacks MDRD vol rate/area (S/P/Bld) 78 mL/min/{1.73_m2} Normal [facility] Work Phone: Glucose mass conc 115 mg/dL Abnormal 70-110 [facility] Work Phone: Comment on above: Fasting Glucose resu lt from 110 to <126 mg/dLsuggests IMPAIRED HOMEOSTASIS per A.D.A. criteria. Potassium molar conc 3.5 mmol/L Normal 3.5-5.1 [facility] Work Phone: Sodium molar conc 140 mmol/L Normal 136-145 [facility] Work Phone: Urea nitrogen mass conc 16 mg/dL Normal 7-18 [facility] Work Phone: Basic Metabolic Profile (BMP) 7 1 Normal 5-15 [facility] Work Phone: Basic Metabolic Profile (BMP) 95 mL/min Normal [facility] Work Phone: Basic Metabolic Profile (BMP) 99.88 ml/min Normal [facility] Work Phone: Basic Metabolic Profile (BMP) 14.5 {RATIO} Normal 10-20 [facility] Work Phone: CBC W/Diff, AutomatedOrdered By: Supervisor Diagnostic on 02-09-2014 Basophils/100 WBC Auto (Bld) 0.3 % Normal 0-1 [facility] Work Phone: Eosinophils/100 WBC Auto (Bld) 1.2 % Normal 0-5 [facility] Work Phone: Erythrocyte distribution width Auto Ratio (RBC) 13.2 % Normal 11.6-14.6 [facility] Work Phone: Hematocrit Auto Volume Fraction (Bld) 47.0 % Normal 40-54 [facility] Work Phone: Hemoglobin mass conc (Bld) 16.4 g/dL Normal 13.0-16.5 [facility] Work Phone: Lymphocytes/100 WBC Auto (Bld) 13.8 % Abnormal 19-41 [facility] Work Phone: MCH Auto Entitic mass (RBC) 30.1 pg Normal 27.0-32.0 [facility] Work Phone: MCHC Auto mass conc (RBC) 34.9 {g/gl} Normal 32-36 [facility] Work Phone: MCV Auto Entitic volume (RBC) 86.4 fL Normal 80-94 [facility] Work Phone: Monocytes/100 WBC Auto (Bld) 12.3 % Abnormal 0-10 [facility] Work Phone: Neutrophils/100 WBC Auto (Bld) 72.0 % Abnormal 47-70 [facility] Work Phone: Platelet mean volume Auto Entitic volume (Bld) 12.4 fL Abnormal 6.2-12.0 [facility] Work Phone: Platelets Auto #/vol (Bld) 171 10*3/uL Normal 150-450 [facility] Work Phone: RBC Auto #/vol (Bld) 5.44 {M/mm3} Normal 4.6-6.2 [facility] Work Phone: WBC Auto #/vol (Bld) 6.7 10*3/uL Normal 4.4-11.0 Com pre[facility] Work Phone: CBC W/Diff, Automated 0.400 % Normal 0.0-0.9 [facility] pre[facility] Work Phone: Comment on above: IG% - Immature Granu locytes (promyelocytes, myelocytes andmetamyelocytes) > 1% indicates that a LEFT SHIFT is Present. CBC W/Diff, Automated 4.8 {X10_3/uL} Normal 2.0-7.7 [facility] Work Phone: CBC W/Diff, Automated 0.92 {X10_3/ul} Normal 0.83-4.51 [facility] Work Phone: CBC W/Diff, Automated 41.8 fL Normal 35.1-43.9 [facility] Work Phone: LipaseOrdered By: System Man ager on 02-09-2014 Lipase 97 U/L Normal 70-290 [facility] Work Phone: Liver ProfileOrdered By: Syblair tem Combination Machine Tool Operator on 02-09-2014 Albumin mass conc 3.6 g/dL Normal 3.4-5.0 [facility] Work Phone: ALT enzyme act/vol 32 U/L Normal 12-78 Compre [facility] Work Phone: AST enzyme act/vol 16 U/L Normal 15-37 [facility] Work Phone: Bilirubin mass conc 0.40 mg/dL Normal 0.00-4.00 [facility] Work Phone: Bilirubin.direct mass conc 0.10 mg/dL Normal 0.00-0.30 [facility] Work Phone: Globulin Calculated mass conc (S) 3.6 g/dL Normal 2.7-4.2 [facility] Work Phone: Protein mass conc 7.2 g/dL Normal 6.4-8.2 [facility] Work Phone: Liver Profile 80 U/L Normal 50-136 Comprehensi ve [facility] Work Phone: CUTOrdered By: System Manage r on 05-30-2011 CUT See Note Normal [facility] Work Phone: Comment on above: Normal throat fifi isolated. No beta-hemolyticstreptococcus isolated. Rapid Strep Test, Office ([phone])on 05-30-2011 S. pyogenes Ag EIA Ql (Throat) Negative Normal [facility]; [facility] Work Phone: Rapid Strep Test, Office ([phone])Ordered By: Keila Jones on 05-30-2011 S. pyogenes Ag IA Ql (Unsp spec) Negative Normal [facility] Work Phone: LIPIDOrdered By: Karla cheng on 05-09-2008 Cholesterol in HDL mass conc 33 mg/dL Abnormal [facility] Work Phone: Comment on above: Reference Range HDL <40 mg/dL Low HDL Cholesterol HDL >or= 60 mg/dL High HDL Cholesterol Cholesterol in LDL mass conc 89 mg/dL Normal 0-130 [facility] Work Phone: Cholesterol in VLDL mass conc 30 mg/dL Normal 5-40 [facility] Work Phone: Cholesterol mass conc 152 mg/dL Normal Com prehens[facility] Work Phone: Comment on above: <200 mg/dL Desirable 200-240 mg/dL Borderline >240 mg/dL High Risk Triglyceride mass conc 151 mg/dL Normal Co [facility] Work Phone: Comment on above: Serum Triglycerides Reference Interval Normal <150 mg/dL Borderline high 150 - 199 mg/dL High 200 - 499 mg/dL Very High > or = 500 mg/dL Vital Signs Date Time Vital Sign Value Performing Clinician Facility 01-22-2022 08:37-0500 Body temperature 98.1 [degF] Sandra Gonsales APRN.BRANCH EMPLOYMENT COORDINATOR Work Phone: [facility] 01-22-2022 08:37-0500 Body weight 113.85 kg Sandra Gonsales APRN.CNP Work Phone: [facility] 01-22-2022 08:37-0500 Diastolic blood pressure 98 mm[Hg] Sandra Gonsales APRN.BRANCH EMPLOYMENT COORDINATOR Work Phone: [facility] 01-22-2022 08:37-0500 Heart rate 91 /min Sandra oGnsales DIVERSIFIED [employer]OPS II FARMWORKER.BRANCH EMPLOYMENT COORDINATOR Work Phone: [facility] 01-22-2022 08:37-0500 Respiratory rate 20 /min Sandra Gonsales DIVERSIFIED [employer]OPS II FARMWORKER.BRANCH EMPLOYMENT COORDINATOR Work Phone: [facility] 01-22-2022 08:37-0500 SaO2% (BldA) [Mass fraction] 96 % Sandra Gonsales DIVERS[employer]IED [employer] II FARMWORKER.BRANCH EMPLOYMENT COORDINATOR Work Phone: [facility] 01-22-2022 08:37-0500 Systolic blood pressure 146 mm[Hg] Sandra Gonsales DIVERSIFIED [employer] II FARMWORKER.BRANCH EMPLOYMENT COORDINATOR Work Phone: [facility] 06-14-2021 16:03-0400 Body height 185.42 cm Carmelita [...] [facility]; [facility] Work Phone: Comment on above: Patient Position: Sitting; Cuff Location : Left Arm; Cuff Size: Standard 06-14-2021 16:03-0400 Heart rate 102 /min Carmelita Oates LPN [facility]; [facility] Work Phone: Comment on above: Pattern: Regular 06-14-2021 16:03-0400 Respiratory rate 16 /min Carmelita Oates LPN [facility]; [facility] Work Phone: Comment on above: Pattern: Unlabored 06-14-2021 16:03-0400 SaO2% (BldA) [Mass fraction] 95 % Carmelita Oates LPN [facility]; [facility] Work Phone: Comment on above: Room air 06-14-2021 16:03-0400 Systolic blood pressure 178 mm[Hg] Carmelita Oates LPN [facility]; [facility] Work Phone: Comment on above: Patient Position: Sitting; Cuff Location : Left Arm; Cuff Size: Standard 05-15-2021 21:08-0400 Diastolic blood pressure 76 mm[Hg] [facility] Work Phone: 05-15-2021 21:08-0400 Heart rate 89 /min [facility] Work Phone: 05-15-2021 21:08-0400 Respiratory rate 18 /min [facility] Work Phone: 05-15-2021 21:08-0400 SaO2% (BldA) [Mass fraction] 99 % [facility] Work Phone: 05-15-2021 21:08-0400 Systolic blood pressure 156 mm[Hg] [facility] Work Phone: 05-15-2021 19:26-0400 Body height 185.42 cm [facility] Work Phone: 05-15-2021 19:26-0400 Body mass index (BMI) [Ratio] 33.7 kg/m2 [facility] Work Phone: 05-15-2021 19:26-0400 Body temperature 97.7 [degF] [facility] Work Phone: 05-15-2021 19:26-0400 Body weight 115.9 kg [facility] Work Phone: 04-16-2020 13:31-0500 BMI (Body Mass Index) 30.48 kg/m2 Linda Murillo LPN [facility]; [facility] Work Phone: 04-16-2020 13:31-0500 Body weight 104.78 kg Linda Murillo LPN [facility]; [facility] Work Phone: 04-16-2020 13:31-0500 BSA (Body Surface Area) 2.29 m2 Linda Murillo LPN [facility]; [facility] Work Phone: 04-16-2020 13:31-0500 Height 185.42 cm Linda Murillo LPN [facility]; [facility] Work Phone: 02-12-2018 10:08-0500 BMI (Body Mass Index) 30.48 kg/m2 Norman Mercedes LPN [facility] Work Phone: 02-12-2018 10:08-0500 Body Temperature 97.5 [degF] Norman Mercedes LPN [facility] Work Phone: Comment on above: Method: Temporal 02-12-2018 10:08-0500 Body weight 104.78 kg Norman Mercedes LPN [facility]; [facility] Work Phone: 02-12-2018 10:08-0500 BP Diastolic 78 mm[Hg] Norman Mercedes LPN [facility] Work Phone: Comment on above: Patient Position: Sitting; Cuff Location : Left Arm; Cuff Size: Standard 02-12-2018 10:08-0500 BP Systolic 118 mm[Hg] Norman Mercedes LPN [facility] Work Phone: Comment on above: Patient Position: Sitting; Cuff Location : Left Arm; Cuff Size: Standard 02-12-2018 10:08-0500 BSA (Body Surface Area) 2.29 m2 Norman Mercedes LPN [facility] Work Phone: 02-12-2018 10:08-0500 Height 185.42 cm Norman Mercedes LPN [facility] Work Phone: 02-12-2018 10:08-0500 Pulse (Heart Rate) 75 /min Norman Mercedes LPN [facility] Work Phone: Comment on above: Pattern: Regular 02-12-2018 10:08-0500 Pulse Oximetry 97 % Naida Marco [facility] Work Phone: Comment on above: Room air 02-12-2018 10:08-0500 Respiratory Rate 18 /min Norman Mercedes LPN [facility] Work Phone: Comment on above: Pattern: Unlabored 02-12-2018 10:08-0500 SaO2% (BldA) [Mass fraction] 97 % Norman Mercedes LPN [facility]; [facility] Work Phone: Comment on above: Room air 02-12-2018 10:08-0500 Weight 104.78 kg Naida Marco [facility] Work Phone: 03-21-2017 08:34-0500 BMI (Body Mass Index) 30.48 kg/m2 Saritha Mancia RN [facility] Work Phone: 03-21-2017 08:34-0500 Body Temperature 98 [degF] Saritha Mancia RN [facility] Work Phone: Comment on above: Method: Temporal 03-21-2017 08:34-0500 Body weight 104.78 kg Saritha Mancia RN [facility]; [facility] Work Phone: 03-21-2017 08:34-0500 BP Diastolic 74 mm[Hg] Saritha Mancia RN [facility] Work Phone: Comment on above: Patient Position: Sitting; Cuff Location : Left Arm; Cuff Size: Standard 03-21-2017 08:34-0500 BP Systolic 122 mm[Hg] Saritha Mancia RN [facility] Work Phone: Comment on above: Patient Position: Sitting; Cuff Location : Left Arm; Cuff Size: Standard 03-21-2017 08:34-0500 BSA (Body Surface Area) 2.29 m2 Saritha Mancia RN [facility] Work Phone: 03-21-2017 08:34-0500 Height 185.42 cm Saritha Mancia RN [facility] Work Phone: 03-21-2017 08:34-0500 Pulse (Heart Rate) 101 /min Saritha Mancia RN [facility] Work Phone: Comment on above: Pattern: Regular 03-21-2017 08:34-0500 Pulse Oximetry 96 % Naida Lara [facility] Work Phone: Comment on above: Room air 03-21-2017 08:34-0500 Respiratory Rate 16 /min Saritha Mancia RN [facility] Work Phone: Comment on above: Pattern: Unlabored 03-21-2017 08:34-0500 SaO2% (BldA) [Mass fraction] 96 % Saritha Mancia RN [facility]; [facility] Work Phone: Comment on above: Room air 03-21-2017 08:34-0500 Weight 104.78 kg Naida Deanon [facility] Work Phone: 04-01-2016 08:08-0500 BMI (Body Mass Index) 30.48 kg/m2 Rose Lin RN [facility] Work Phone: 04-01-2016 08:08-0500 Body weight 104.78 kg Rose Lin RN [facility]; [facility] Work Phone: 04-01-2016 08:08-0500 BP Diastolic 102 mm[Hg] Rose Lin RN [facility] Work Phone: Comment on above: Patient Position: Sitting; Cuff Location : Left Arm; Cuff Size: Large 04-01-2016 08:08-0500 BP Systolic 148 mm[Hg] Rose Lin RN [facility] Work Phone: Comment on above: Patient Position: Sitting; Cuff Location : Left Arm; Cuff Size: Large 04-01-2016 08:08-0500 BSA (Body Surface Area) 2.29 m2 Rose Lin RN [facility] Work Phone: 04-01-2016 08:08-0500 Height 185.42 cm Rose Lin RN [facility] Work Phone: 04-01-2016 08:08-0500 Pulse (Heart Rate) 82 /min Rose Lin RN [facility] Work Phone: Comment on above: Pattern: Regular 04-01-2016 08:08-0500 Pulse Oximetry 97 % Naida Lara [facility] Work Phone: Comment on above: Room air 04-01-2016 08:08-0500 Respiratory Rate 18 /min Rose Lin RN [facility] Work Phone: Comment on above: Pattern: Unlabored 04-01-2016 08:08-0500 SaO2% (BldA) [Mass fraction] 97 % Rose Lin RN [facility]; [facility] Work Phone: Comment on above: Room air 04-01-2016 08:08-0500 Weight 104.78 kg Naida Lara [facility] Work Phone: 11-14-2011 13:05-0400 BMI (Body Mass Index) 28.04 kg/m2 Rose Lin RN [facility] Work Phone: 11-14-2011 13:05-0400 Body weight 96.39 kg Rose Lin RN [facility]; [facility] Work Phone: 11-14-2011 13:05-0400 BP Diastolic 82 mm[Hg] Rose Lin RN [facility] Work Phone: Comment on above: Patient Position: Sitting; Cuff Location : Left Arm; Cuff Size: Large 11-14-2011 13:05-0400 BP Systolic 134 mm[Hg] Rose Lin RN [facility] Work Phone: Comment on above: Patient Position: Sitting; Cuff Location : Left Arm; Cuff Size: Large 11-14-2011 13:05-0400 BSA (Body Surface Area) 2.21 m2 Rose Lin RN [facility] Work Phone: 11-14-2011 13:05-0400 Height 185.42 cm Rose Lin RN [facility] Work Phone: 11-14-2011 13:05-0400 Pulse (Heart Rate) 72 /min Rose Lin RN [facility] Work Phone: Comment on above: Pattern: Regular 11-14-2011 13:05-0400 Respiratory Rate 20 /min Rose Lin RN [facility] Work Phone: Comment on above: Pattern: Unlabored 11-14-2011 13:05-0400 Weight 96.39 kg Naida Lara [facility] Work Phone: 05-30-2011 13:20-0400 BMI (Body Mass Index) 28.44 kg/m2 Alaina Mcmullen LPN [facility] Work Phone: 05-30-2011 13:20-0400 Body Temperature 99.2 [degF] Alaina Mcmullen LPN [facility] Work Phone: Comment on above: Method: Oral 05-30-2011 13:20-0400 Body weight 97.78 kg Alaina Mcmullen LPN [facility]; [facility] Work Phone: 05-30-2011 13:20-0400 BP Diastolic 80 mm[Hg] Alaina Mcmullen LPN [facility] Work Phone: Comment on above: Patient Position: Sitting; Cuff Location : Left Arm; Cuff Size: Standard 05-30-2011 13:20-0400 BP Systolic 130 mm[Hg] Alaina Mcmullen LPN [facility] Work Phone: Comment on above: Patient Position: Sitting; Cuff Location : Left Arm; Cuff Size: Standard 05-30-2011 13:20-0400 BSA (Body Surface Area) 2.22 m2 Alaina Mcmullen LPN [facility] Work Phone: 05-30-2011 13:20-0400 Height 185.42 cm Alaina Mcmullen LPN [facility] Work Phone: 05-30-2011 13:20-0400 Pulse (Heart Rate) 92 /min Alaina Mcmullen LPN [facility] Work Phone: Comment on above: Pattern: Regular 05-30-2011 13:20-0400 Pulse Oximetry 96 % Naida Lara [facility] Work Phone: Comment on above: Room air 05-30-2011 13:20-0400 Respiratory Rate 18 /min Alaina [address] [facility] Work Phone: 05-30-2011 13:20-0400 SaO2% (BldA) [Mass fraction] 96 % Alaina [address] [facility] Work Phone: Comment on above: Room air 05-30-2011 13:20-0400 Weight 97.78 kg Naida Lara [facility] Work Phone: 11-04-2010 07:01-0400 BMI (Body Mass Index) 28.44 kg/m2 Rose Lin RN [facility] Work Phone: 11-04-2010 07:01-0400 Body Temperature 98 [degF] Rose Lin RN [facility] Work Phone: Comment on above: Method: Oral 11-04-2010 07:01-0400 Body weight 97.78 kg Rose Lin RN [facility] Work Phone: 11-04-2010 07:01-0400 BP Diastolic 72 mm[Hg] Rose Lin RN [facility] Work Phone: Comment on above: Patient Position: Sitting; Cuff Location : Left Arm; Cuff Size: Large 11-04-2010 07:01-0400 BP Systolic 138 mm[Hg] Rose Lin RN [facility] Work Phone: Comment on above: Patient Position: Sitting; Cuff Location : Left Arm; Cuff Size: Large 11-04-2010 07:01-0400 BSA (Body Surface Area) 2.22 m2 Rose Lin RN [facility] Work Phone: 11-04-2010 07:01-0400 Height 185.42 cm Rose Lin RN [facility] Work Phone: 11-04-2010 07:01-0400 Pulse (Heart Rate) 64 /min Rose Lin RN [facility] Work Phone: Comment on above: Pattern: Regular 11-04-2010 07:01-0400 Respiratory Rate 20 /min Rose Lin RN [facility] Work Phone: Comment on above: Pattern: Unlabored 11-04-2010 07:01-0400 Weight 97.78 kg Naida Lara [facility] Work Phone: 12-26-2007 14:53-0500 BMI (Body Mass Index) 30.8 kg/m2 Rose Lin RN [facility] Work Phone: 12-26-2007 14:53-0500 Body weight 105.89 kg Rose Lin RN [facility] Work Phone: 12-26-2007 14:53-0500 BP Diastolic 80 mm[Hg] Rose Lin RN [facility] Work Phone: Comment on above: Patient Position: Sitting; Cuff Location : Left Arm; Cuff Size: Large 12-26-2007 14:53-0500 BP Systolic 124 mm[Hg] Rose Lin RN [facility] Work Phone: Comment on above: Patient Position: Sitting; Cuff Location : Left Arm; Cuff Size: Large 12-26-2007 14:53-0500 BSA (Body Surface Area) 2.3 m2 Rose Lin RN [facility] Work Phone: 12-26-2007 14:53-0500 Head Circumference 0 cm Naida Lara [facility] Work Phone: 12-26-2007 14:53-0500 Head Occipital-frontal circumference 0 cm Rose Lin RN [facility] Work Phone: 12-26-2007 14:53-0500 Height 185.42 cm Rose Lin RN [facility] Work Phone: 12-26-2007 14:53-0500 Pulse (Heart Rate) 64 /min Rose Lin RN [facility] Work Phone: Comment on above: Pattern: Regular 12-26-2007 14:53-0500 Respiratory Rate 20 /min Rose Lin RN [facility] Work Phone: Comment on above: Pattern: Unlabored 12-26-2007 14:53-0500 Weight 105.89 kg Naida Lara [facility] Work Phone: 12-25-2006 15:01-0500 Body weight 0 kg Alaina Mcmullen LPN [facility] Work Phone: 12-25-2006 15:01-0500 BP Diastolic 78 mm[Hg] Alaina Mcmullen LPN [facility] Work Phone: Comment on above: Patient Position: Sitting; Cuff Location : Left Arm; Cuff Size: Standard 12-25-2006 15:01-0500 BP Systolic 130 mm[Hg] Alaina Mcmullen LPN [facility] Work Phone: Comment on above: Patient Position: Sitting; Cuff Location : Left Arm; Cuff Size: Standard 12-25-2006 15:-0500 Head Circumference 0 cm Naida Lara [facility] Work Phone: 12-25-2006 15:-0500 Head Occipital-frontal circumference 0 cm Alaina Mcmullen LPN [facility] Work Phone: 12-25-2006 15:-0500 Height 0 cm Alaina Mcmullen LPN [facility] Work Phone: 12-25-2006 15:01-0500 Pulse (Heart Rate) 78 /min Alaina Mcmullen LPN [facility] Work Phone: Comment on above: Pattern: Regular 12-25-2006 15:01-0500 Respiratory Rate 18 /min Alaina Mcmullen LPN [facility] Work Phone: Comment on above: Pattern: Unlabored 12-25-2006 15:01-0500 Weight 0 kg Naida Lara [facility] Work Phone: 05-15-2006 15:41-0400 Body Temperature 97.6 [degF] BETH Catherine [employer] [facility] Work Phone: Comment on above: Method: Oral 05-15-2006 15:41-0400 Body weight 0 kg BETH Catherine [employer] WEIG[employer] [facility] Work Phone: 05-15-2006 15:41-0400 BP Diastolic 90 mm[Hg] BETH Catherine JAD [facility] Work Phone: Comment on above: Patient Position: Sitting; Cuff Location : Left Arm; Cuff Size: Standard 05-15-2006 15:41-0400 BP Systolic 140 mm[Hg] BETH Catherine [facility] Work Phone: Comment on above: Patient Position: Sitting; Cuff Location : Left Arm; Cuff Size: Standard 05-15-2006 15:41-0400 Head Circumference 0 cm Naida Lara [facility] Work Phone: 05-15-2006 15:41-0400 Head Occipital-frontal circumference 0 cm BETH Catherine [facility]; [facility] Work Phone: 05-15-2006 15:41-0400 Height 0 cm BETH Catherine [facility] Work Phone: 05-15-2006 15:41-0400 Pulse (Heart Rate) 76 /min BETH Catherine [facility] Work Phone: Comment on above: Pattern: Regular 05-15-2006 15:41-0400 Respiratory Rate 20 /min BETH Catherine [facility] Work Phone: Comment on above: Pattern: Unlabored 05-15-2006 15:41-0400 Weight 0 kg Naida Lara [facility] Work Phone: 04-21-2006 07:58-0500 Body Temperature 98.6 [degF] Alaina Mcmullen [facility] Work Phone: Comment on above: Method: Oral 04-21-2006 07:58-0500 Body weight 0 kg Alaina Mcmullen [facility] Work Phone: 04-21-2006 07:58-0500 BP Diastolic 76 mm[Hg] Alaina Mcmullen [facility] Work Phone: Comment on above: Patient Position: Sitting; Cuff Location : Left Arm; Cuff Size: Standard 04-21-2006 07:58-0500 BP Systolic 118 mm[Hg] Alaina Mcmullen [facility] Work Phone: Comment on above: Patient Position: Sitting; Cuff Location : Left Arm; Cuff Size: Standard 04-21-2006 07:58-0500 Head Circumference 0 cm Naida Lara [facility] Work Phone: 04-21-2006 07:58-0500 Head Occipital-frontal circumference 0 cm Alaina Mcmullen LPN [facility] Work Phone: 04-21-2006 07:58-0500 Height 0 cm Alaina Mcmullen LPN [facility] Work Phone: 04-21-2006 07:58-0500 Pulse (Heart Rate) 64 /min Alaina Mcmullen LPN [facility] Work Phone: Comment on above: Pattern: Regular 04-21-2006 07:58-0500 Respiratory Rate 16 /min Alaina Mcmullen LPN [facility] Work Phone: Comment on above: Pattern: Unlabored 04-21-2006 07:58-0500 Weight 0 kg Naida Lara [facility] Work Phone: 04-14-2006 13:34-0500 Body Temperature 98.5 [degF] Alaina Mcmullen LPN [facility] Work Phone: Comment on above: Method: Oral 04-14-2006 13:34-0500 Body weight 0 kg Alaina Mcmullen LPN [facility] Work Phone: 04-14-2006 13:34-0500 BP Diastolic 74 mm[Hg] Alaina Mcmullen LPN [facility] Work Phone: Comment on above: Patient Position: Sitting; Cuff Location : Left Arm; Cuff Size: Standard 04-14-2006 13:34-0500 BP Systolic 116 mm[Hg] Alaina Mcmullen LPN [facility] Work Phone: Comment on above: Patient Position: Sitting; Cuff Location : Left Arm; Cuff Size: Standard 04-14-2006 13:34-0500 Head Circumference 0 cm Naida Lara [facility] Work Phone: 04-14-2006 13:34-0500 Head Occipital-frontal circumference 0 cm Alaina Mcmullen LPN [facility] Work Phone: 04-14-2006 13:34-0500 Height 0 cm Alaina Mcmullen LPN [facility] Work Phone: 04-14-2006 13:34-0500 Pulse (Heart Rate) 64 /min Alaina Mcmullen LPN [facility] Work Phone: Comment on above: Pattern: Regular 04-14-2006 13:34-0500 Respiratory Rate 17 /min Alaina Mcmullen LPN [facility] Work Phone: Comment on above: Pattern: Unlabored 04-14-2006 13:34-0500 Weight 0 kg Naida Lara [facility] Work Phone: Encounters Encounter Date Encounter Type Care Provider Facility Start: 08-01-2024 ambulatory Naida Lara Facilit y:[facility] Start: 07-30-2024 Encounter for other preprocedural examination Amauri Klein [facility] Start: 05-31-2024 End: 05-31-2024 ambulatory Naida Lara Facility:[facility] Start: 05-31-2024 End: 05-31-2024 ambulatory DARRELL POLO Facility:[facility] Start: 05-23-2024 End: 05-23-2024 ambulatory Naida Lara Facility:[facility] Start: 03-25-2023 End: 03-25-2023 ambulatory [facility] Work Phone: Start: 03-25-2023 End: 03-25-2023 Patient encounter procedure [facility] Work Phone: Start: 01-22-2022 End: 01-22-2022 ambulatory NAIDA LARA Facility:[facility] Start: 01-22-2022 End: 01-22-2022 Patient encounter procedure Sandra Gonsales APRN.[employer]CH EM[employer]MENT COORDINATOR Work Phone: [facility] Comment on above: Sore throat (Primary Dx); Strep throat; Hypertension, unspecified type Start: 06-14-2021 End: 06-14-2021 Office outpatient visit 15 minutes Naida Lara DO Work Phone: [facility] Start: 05-15-2021 End: 05-15-2021 Emergency department patient visit [facility]gency Department Start: 06-30-2020 End: 06-30-2020 ambulatory NAIDA MCCAIN MARCO [facility] Start: 06-09-2020 End: 06-09-[address] JAVIER MARTE [facility] Start: 04-16-2020 End: 04-17-2020 Office outpatient visit 25 minutes Naida [facility] Start: 04-16-2020 Review Naida Lara [facility] Start: 04-11-2020 End: 04-13-2020 ambulatory MARIANNE NEWSOME [facility] Start: 05-11-2018 Patient encounter procedure Naida [facility] Start: 02-12-2018 End: 02-12-2018 Office outpatient visit 15 minutes Naida [facility] Start: 03-22-2017 End: 03-22-2017 Annotation/Addendum Naida Marshall [facility] Start: 03-21-2017 End: 03-21-2017 Office outpatient visit 15 minutes Naida [facility] Start: 04-01-2016 End: 04-01-2016 Office outpatient new 20 minutes Naida [facility] Start: 11-14-2011 End: 11-14-2011 Patient encounter procedure Naida [facility] Start: 05-30-2011 End: 05-30-2011 Office outpatient visit 15 minutes Naida [facility] Start: 11-04-2010 End: 11-04-2010 Patient encounter procedure Naida [facility] Start: 12-26-2007 End: 12-26-2007 Patient encounter procedure Naida [facility] Start: 12-25-2006 End: 12-25-2006 Office outpatient visit 25 minutes Naida [facility] Start: 05-15-2006 End: 05-15-2006 Office outpatient visit 15 minutes Naida Lara [facility] Start: 04-21-2006 End: 04-21-2006 Office outpatient visit 15 minutes Naida Lara [facility] Start: 04-14-2006 End: 04-14-2006 Office outpatient visit 25 minutes Naida Lara [facility] Start: 04-13-2006 End: 04-13-2006 Historical Summary Naida Marshall [facility] Procedures Date Procedure Procedure Detail Performing Clinician Start: 01-22-2022 CAITLIN Wall MOLECULAR (POC) Sandra Mensahkieran BENITESBRANCH EMPLOYMENT COORDINATOR Work Phone: Start: 05-15-2021 End: 05-15-2021 Chest 1 View (Portable) Procedure Note: See Note; NOTES: [facility] Imaging Services [address] [place] [address] Chest 1 View (Portable) MR#: [id number] Acct: [id number] Name: PEPITO DUNN Rep #: [id number] : 1970 M 50 From: Dion Garcia MD PCP: Dr. Naida Lara DO Status: REG ER Study: Chest 1 View (Portable) Date of Exam: 05/15/21 Exam# [id number] Ordering Dr: Jhonathan Malin DO EXAM: XR Chest, 1 View CLINICAL INDICATION: 50 years old, Male; chest pain TECHNIQUE: Frontal view of the chest. This report was created using [employer] report generation technology. COMPARISON: XR Chest dated [...] Jhonathan Malin DO; Dr. 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 Naida Lara DO Work Phone: Start: 05-15-2021 Plain chest X-ray Start: 05-15-2021 End: 05-15-2021 Emergency Department Summary Procedure Note: See Note; NOTES: [facility] Medical Records Department [address] [place] [address] Emergency Department Summary 05/15/21 MR#: [id number] Acct: [id number] Name: PEPITO DUNN Rep #: [id number] : 1970 50 From: Jhonathan Malin DO PCP: Dr. Naida Lara, Status:REG ER Location: ED HPI History of [...] of DVT, history of cancer, allergies [facility] Home Medications amlodipine 5 mg PO DAILY #30 tab 05/15/21 [Rx Last Taken Unknown] Allergy/AdvReac Type Severity Reaction Status Date / Time ampicillin Allergy Rash Verified 05/15/21 19:31 Social History Smoking Status: Never smoker ROS ROS ED Constitutional Constitutional ED: Denies chills or [...] 72.5 H Lymph % (Auto) 17.8 L [place] % (Auto) 7.3 Eos % (Auto) 1.5 [...] problems, contact your Primary Care Provider. Call [facility] ([phone]) or report to the closest Emergency Room. Call 911 if necessary. 05/15/212100 <Electronically signed by Jhonathan Malin DO> Cosigner Signature (if applicable): CC: Dr. Naida Lara DO Signed Naida Lara DO Work Phone: Start: 05-15-2021 End: 05-15-2021 Brain/Head without Contrast Procedure Note: See Note; NOTES: [facility] Imaging Services [address] [place] [address] Brain/Head without Contrast MR#: [id number] Acct: [id number] Name: PEPITO DUNN Rep #: [id number] : 1970 M 50 From: Biju Randhawa MD PCP: Dr. Naida Lara DO Status: REG ER Study: Brain/Head without Contrast Date of Exam: 04/21 08/11 Exam# [id number] Ordering Dr: Jhonathan Malin DO HISTORY: headache [...] Biju Randhawa MD at 20:56 EDT , CC: Dr. Jhonathan Malin DO; Dr. 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 Naida Lara DO Work Phone: Start: 05-15-2021 CT of head without contrast Start: 05-15-2021 End: 05-18-2021 12 Lead EKG Procedure Note: See Note; NOTES: [facility] Cardiovascular Services [address] [place] [address] 12 Lead EKG 05/15/211941 MR#: [id number] Acct: [id number] Name: PEPITO DUNN Rep #: [id number] : 1970 50 From: Jae Good MD [...] Normal sinus rhythm Normal ECG Confirmed by LATISHA FALL, JAE ([id number]), assignment desk editor SAKSHI CANTU ([id number]) on 05/18/2021 10:45:37 AM Referred By: Confirmed By:JAE GOOD MD 05/18/21 1045 Date Jae Good MD CC: Dr. Jhonathan Malin DO; Dr. Naida Lara DO Signed Naida Lara DO Work Phone: Start: 04-16-2020 End: 04-16-2020 Venous Duplex US, Unilateral Comments: See Note; NOTES: [facility] Cardiovascular Services [address] [place] [address] Venous Duplex US, Unilateral 04/16/20 1555 MR#: [id number] Acct: [id number] Name: PEPITO DUNN Rep #: [id number] : 1970 49 From: Bulmaro Kumar MD [...] preliminary report was called and/or faxed to Marco. Interpretation Summary Deep veins of the right lower extremity are patent and compressible segmentally. There is no evidence of right lower extremity deep vein thrombosis. Valvular competence appears intact within the proximal deep venous system on the right . The right great saphenous vein appears patent and compressible segmentally. _ Ordering Physician: Naida Lara Referring Physician: Naida Lara Performed By: Reina Perez RVT 04/16/201956 Date Bulmaro Kumar MD CC: Dr. Naida Lara DO Date Dictated: 04/16/20 1555 Date Transcribed: 04/16/201956 Advertising Dispatch Clerk: Signed Naida Lara Work Phone: Start: 07-27-2019 End: 07-30-2019 Emergency Department Summary Comments: See Note; NOTES: [facility] Medical Records Department [address] [place] [address] Emergency Department Summary 07/27/19 MR#: [id number] Acct: [id number] Name: PEPITO DUNN Rep #: [id number] : 1970 48 From: Amish Shah DO [...] ice. I will write for a few Art. He was advised this will take some time to fully resolve. I can take him off work for a few days. ED Disposition - Plan for ED Patient: Disposition: Home or Assisted Living Diagnosis: Subcutaneous hematoma Instructions: ED Hematoma Prescriptions: Hydrocodone Bitart/Apap 5-325 [Art 5MG-325MG] 1 tab PO Q6H PRN PRN 3 Days #12 tab PRN Reason: Pain Prescription Printed Referrals: Naida Lara DO [Primary Care Provider] - 10-14 Days if not better What to do if you have Problems For any increased pain, shortness of breath, bleeding, nausea or vomiting, chest pain, or any unexpected problems, contact your Primary Care Provider. Call [facility] ([phone]) or report to the closest Emergency Room. Call 911 if necessary. 07/30/19 2240 <Electronically signed by Amish Shah DO> Date Amish Shah DO Cosigner Signature (If Indicated): Date CC: DO Naida Genao Start: 03-21-2017 End: 03-21-2017 Chest PA and Lateral Comments: See Note; NOTES: [facility] Imaging Services [address] [place] [address] Chest PA and Lateral MR#: [id number] Acct: [id number] Name: PEPITO DUNN Rep #: [id number] : 1970 M 46 From: Junior Awan MD PCP: Naida Lara DO Status: REG CLI Study: Chest PA and Lateral Date of Exam: 03/21/17 Exam# [id number] Ordering Dr: [address] STUDY: X-RAY CHEST REASON FOR EXAM: Male, [...] Junior Awan MD at 12:29 EST Tel [phone], Service support , CC: [address]; 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 [address] Start: 02-12-2014 End: 02-17-2014 Emergency Department Summary Comments: See Note; NOTES: [facility] Medical Records Department [address] [place] [address] Emergency Department Summary MR#: [id number] Acct: [id number] Name: PEPITO DUNN Rep #: [id number] : 1970 43 From: Jenifer Myrick MD PCP: Niada Lara DO Status: [facility] ER DATE OF SERVICE: 02/10/2014 CHIEF COMPLAINT: [...] pain. Jenifer Myrick MD T: NTS JOB: [id number] 02/12/14 1547 <Electronically signed by Jenifer Myrick MD> Date Jenifer Myrick MD CC: Naida Lara DO Date Dictated: 02/10/14343 Date Transcribed: 02/10/14343 Advertising Dispatch Clerk: Signed Naidagabriella Lara Start: 02-11-2014 End: 02-11-2014 12 lead ECG Comments: See Note; NOTES: [facility] Cardiovascular Services [address] [place] [address] 12 Lead EKG 02/10/14236 MR#: [id number] Acct: [id number] Name: PEPITO DUNN Rep #: [id number] : 1970 43 From: Amish Haley MD [...] ECGs available Confirmed by AMISH HALEY ([id number]), assignment desk editor CHEIKH FROST ([id number]) on 02/11/2014 11:06:46 AM Referred By: HUGO Confirmed By:AMISH HALEY 02/11/14 1106 Date Amish Haley MD CC: Naida Lara DO Date Dictated: 02/10/14236 Date Transcribed: 02/10/14236 Advertising Dispatch Clerk: Signed Naida Lara Start: 02-10-2014 End: 02-10-2014 Discharge Instruction Comments: See Note; NOTES: [facility] Medical Records Department [address] [place] [address] Discharge Instruction 02/10/14336 MR#: [id number] Acct: [id number] Name: PEPITO DUNN Rep #: [id number] : 1970 43 From: Jenifer Myrick MD [...] problems, contact your doctor. Call [facility] ( [phone]) or report to the closest Emergency Room. Call 911 if necessary. 02/10/14 0339 <Electronically signed by Jenifer Myrick MD> Date Jenifer Myrick MD Cosigner Signature (If Indicated): Date CC: Naida Valencia Start: 02-10-2014 End: 02-10-2014 Chest PA and Lateral Comments: See Note; NOTES: [facility] Imaging Services [address] [place] [address] Radiology Report MR#: [id number] Acct: [id number] Name: PEPITO DUNN Rep #: [id number] : 1970 M 43 From: Amish Sher DO PCP: Naida Lara DO Status: [facility] ER Study: Chest PA and Lateral Date of Exam: 02/10/14 Exam# [id number] Ordering Dr: Jenifer Myrick MD STUDY: X-RAY [...] DO at 9:25 EST , Service support [phone], RAD/Chest PA and Lateral IMPRESSION: Mild pulmonary hyperinflation. No acute airspace opacities are demonstrated. Electronically Signed: Anton Moe DO at 9:25 EST , Service support [phone], CC: Jenifer Myrick MD; 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 Naida Lara Start: 02-09-2014 End: 02-09-2014 Emergency Department Summary Comments: See Note; NOTES: [facility] Medical Records Department [address] [place] [address] Emergency Department Summary MR#: [id number] Acct: [id number] Name: PEPITO DUNN Rep #: [id number] : 1970 43 From: Savanna Mims MD PCP: Naida Lara DO Status: [facility] ER DATE OF SERVICE: 02/09/2014 CHIEF COMPLAINT: [...] discharged. Savanna Mims MD T: NTS JOB: [id number] 02/09/14 1005 <Electronically signed by Savanna Mims MD> Date Savanna Mims MD CC: Naida Lara DO Date Dictated: 02/09/14927 Date Transcribed: 02/09/14927 Advertising Dispatch Clerk: Signed Naida Lara Start: 02-09-2014 End: 02-09-2014 Discharge Instruction Comments: See Note; NOTES: [facility] Medical Records Department [address] [place] [address] Discharge Instruction 02/09/14 0923 MR#: [id number] Acct: [id number] Name: PEPITO DUNN Rep #: [id number] : 1970 43 From: Savanna Mims MD [...] any unexpected problems, contact your doctor. Call [facility] ) or report to the closest Emergency Room. Call 911 if necessary. 02/09/14 0924 <Electronically signed by Savanna Mims MD> Date Savanna Mims MD Cosigner Signature (If Indicated): Date CC: Naida Valencia Start: 02-09-2014 End: 02-09-2014 Abdomen/Pelvis without Cont Comments: See Note; NOTES: [facility] Imaging Services [address] [place] [address] CAT Scan Report MR#: [id number] Acct: [id number] Name: PEPITO DUNN Rep #: [id number] : 1970 M 43 From: Amish Sher DO PCP: Naida Lara DO Status: REG ER Study: Abdomen/Pelvis without Cont Date of Exam: 02/09/14 Exam# [id number] Ordering Dr: Savanna Mims MD STUDY: CT [...] DO at 9:02 EST , Service support [phone], CC: Savanna Mims MD; 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 Naida Lara Plan of Treatment Date Care Activity Detail Author Start: 10-21-2021 Influenza vaccination INFLUENZA (#1) [facility] Start: 06-14-2021 Procedure Education Eprescribed prescriptions (G8553) [facility] Work Phone: Start: 06-14-2021 Provider Instructions for Treatment [facility] Work Phone: Start: 02-20-2021 DEPRESSION ASSESSMENT DEPRESSION ASSESSMENT [facility] Start: 08-25-2020 COVID-19 VACCINE (3 - Booster for Pfizer series) COVID-19 VACCINE (3 - Booster for Pfizer series) [facility] Start: 04-16-2020 Procedure Education Eprescribed prescriptions (G8553) [facility]; [facility] Work Phone: Start: 04-16-2020 Provider Instructions for Treatment [facility] Work Phone: Start: 04-16-2020 Blood count complete automated CBC & PLATELETS (AUTO) (80291) [facility] Work Phone: Start: 04-16-2020 C-reactive protein C-REACTIVE PROTEIN (08167) [facility]; [facility] Work Phone: Start: 04-16-2020 CRP [Mass/Vol] C-REACTIVE PROTEIN (59332) [facility]; [facility] Work Phone: Start: 04-16-2020 Sedimentation rate rbc non-automated ESR-F (SED RATE ERYTHROCYTE - MALE) (94726) [facility]; [facility] Work Phone: Start: 04-16-2020 Assay of lipase LIPASE (10086) [facility] Work Phone: Start: 04-16-2020 Amylase [Catalytic activity/Vol] AMYLASE (35843) [facility]; [facility] Work Phone: Start: 04-16-2020 Assay of amylase AMYLASE (81633) [facility] Work Phone: Start: 02-12-2018 Procedure Education Eprescribed prescriptions (G8553) [facility]; [facility] Work Phone: Start: 02-12-2018 Provider Instructions for Treatment Follow up if no improvement or if symptoms worsen [facility]; [facility] Work Phone: Start: 2017 COLOGUARD (FIT-DNA) COLOGUARD (FIT-DNA) [facility] Start: 2017 Colonoscopy COLONOSCOPY [facility] Start: 2017 COLORECTAL CANCER SCREENING COLORECTAL CANCER SCREENING [facility] Start: [address] COLONOGRAPHY [facility] Start: 2017 DIABETES SCREEN DIABETES SCREEN [facility] Start: 2017 FECAL OCCULT BLOOD FECAL OCCULT BLOOD [facility] Start: 2017 SIGMOIDOSCOPY SIGMOIDOSCOPY [facility] Start: 03-21-2017 Patient Education Common Cold *: [...] xcpt urine blood/stool aerobic isol MELL CULTURE-OTHER (12162) [facility] Work Phone: Start: 12-26-2007 Lipid panel LIPID PANEL (70068) [facility] Work Phone: Start: 08-30-2007 LIPID SCREEN LIPID SCREEN [facility] Start: 05-15-2006 Provider Instructions for Treatment FOLLOW UP IN 4 WEEKS [facility]; [facility] Work Phone: Start: 08-30-1991 Urine microalbumin profile DTAP,TDAP,TD (1 - Tdap) [facility] Start: 1990 HEPATITIS C SCREENING HEPATITIS C SCREENING [facility] Start: 1990 HIV SCREENING HIV SCREENING [facility] Start: 1972 HEPATITIS B (1 of 3 - 3-dose series) HEPATITIS B (1 of 3 - 3-dose series) [facility] Patient referral [facility] Work Phone: [facility] Work [facility]: [facility] Work Phone[facility] Work Phone[facility] Work Phone: [facility] Work Phone: [facility] Work Phone: [facility] Work Phone: Payers Date Payer Category Payer Unknown [id number] 2024 Self-pay [id number] 2024 Unknown [id number] 2024 Unknown [id number] 2021 Unknown 2021 Unknown [id number] 2017 Unknown [id number] 2007 Unknown [id number] 2006 Unknown [id number] 1972 Unknown [id number] 2.16.84 [id number] 1972 Unknown [id number] 2.16.84 [id number] 1972 Unknown [id number] 2.16.84 [id number] 1972 Unknown [id number] 2.16.84 [id number] 1972 Unknown [id number] 2.16.8 [id number] Unknown [id number] Unknown [id number] Unknown [id number] Unknown [id number] 2.16.8 [id number] Unknown [id number] 2.16.8 [id number] Unknown [id number] 2.16.8 [id number] Unknown [id number] 2.16.8 [id number] Social History Date Type Detail Facility Caffeine Use Never smoker [facility] Work Phone: Comment on above: 3 cans soda qd (diet coke) 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 Author Type: Nurse Practitioner Type: Progress Notes Filed: 01/22/2022 9:35 AM Note Text: Subjective The history is provided by the patient. No solutions delivery consultant was used. HPI Pepito Dunn is a [...] have confirmed and edited as necessary, the [facility] Review of Systems Constitutional: Negative for chills [...] detail warranting prompt ER evaluation. Sandra Gonsales APRN.CNP [facility] Instructions 01-22-2022 Patient Instructions Note Date [...] inability to swallow. documented in this encounter [facility] History of Present illness Narrative 01-22-2022 Sandra Gonsales APRN.[place] - 01/22/2022 8:48 AM EST Note Date & Type Note Facility 01-22-2022 History of Presen t illness Narrative Subjective The history is provided by the patient. No solutions delivery consultant was used. HPI Pepito Dunn is a [...] have confirmed and edited as necessary, the [facility] Review of Systems Constitutional: Negative for chills [...] detail warranting prompt ER evaluation. Sandra Gonsales APRN.CNP documented in this encounter [facility] Discharge summary note 04-20-2020 Note Date & Type Note Facility 04-20-2020 Note [facility] DISCHARGE SUMMARY NAME ACCOUNT SEX AGE ADMIT DISCHARGE PT MED. RECORD# NUMBER DATE DATE TYPE MONA [id number] M 49 04/11/20 04/13/20 2 PEPITO Wall [id number] ROOM: [id number] DATE OF : 1970 ATTENDING PHYSICIAN: Ike Mart ADMITTING DIAGNOSIS: Chest pain. FINAL DIAGNOSIS: [...] andrés Monreal for Dr. Mart. Dictated By: Ike Mart MD 04/13/20 12:36 JOB #: [id number] Transcribed By: pk 04/13/20 13:53 Electronically signed by: E-Sign: IKE MART MD 04/20/20 09:50 Page 2 of 2 [facility]PEPITO [facility] Discharge Summary [facility] Evaluation note Note Date & Type Note Facility Evaluation note [facility] Work [facility]: Evaluation note Note Date & Type Note Facility Evaluation note Diagnosis Sore throat- Primary Acute pharyngitis Strep throat Streptococcal sore throat Hypertension, unspecified type documented in this encounter [facility] Instructions Note Date & Type Note Facility Instructions Name Patient Instructions Indication:BMI 30.0-30.9,adult Start: 2 Instruction Type:Provider Instructions for Treatment How to Access Health Information Online using Patient Portal and 3rd [employer] Apps Indication:BMI 30.0-30.9,adult Start: 2 Instruction Type:Patient Education How to Access Health Information Online using Patient Portal and 3rd [employer] Apps Indication:Non-smoker Start: 1 Instruction Type:Patient Education Patient Instructions Indication:Non-smoker Start: 1 Instruction Type:Provider Instructions for Treatment How to access health information online Indication:BMI 30.0-30.9,adult Start: 8 Instruction Type:Patient Education How to access health information online - Detail Indication:BMI 30.0-30.9,adult Start: 8 Instruction Type:Patient Education Patient Instructions Indication:BMI 30.0-30.9,adult Start: 8 Instruction Type:Provider Instructions for Treatment How to access health information online Indication:Non-smoker Start: 8 Instruction Type:Patient Education How to access health information online - Detail Indication:Non-smoker Start: 8 Instruction Type:Patient Education Patient Instructions Indication:Flu-like symptoms Start: 8 Instruction Type:Provider Instructions for Treatment How to access health information online Indication:Non-smoker Start: 7 Instruction Type:Patient Education How to access health information online - Detail Indication:Non-smoker Start: 7 Instruction Type:Patient Education Patient Instructions Indication:Non-smoker Start: 7 Instruction Type:Provider Instructions for Treatment Patient Instructions Indication:FX CLOSED METATARSAL Start: 2 Instruction Type:Provider Instructions for Treatment [facility]; [facility] [...] Informa tion Online using Patient Portal and [employer] Apps Indication:Non-smoker Start:16-Apr-2020 Instruction Type:Patient Education Patient [...] Informa tion Online using Patient Portal and [employer] Apps Indication:Non-smoker Start:16-Apr-2020 Instruction Type:Patient Education Patient [...] Found Advance Directives No Advanced Directives Records Found Advance Directive Response Recorded Date/ Time Living Will No May 15, 2021 7:31pm Power of Baby Stroller Rental Clerk No May 15 7:31pm Advance Directive Response Recorded Date/ Time Living Will No May 15, 2021 6:31pm Power of Baby Stroller Rental Clerk No May 15 6:31pm Chief Complaint and Reason for Visit Chief Complaint cp Additional Source Comments (unrecognized sect ion and content) No Status Records FoundNo Status Records FoundNo Status Records FoundNo Status Records FoundNo Status Records FoundNo Status Records Found INFORMATION SOURCE (unrecogn ized section and content) DATE CREATED AUTHOR 05/11/2018 [facility] DATE CREATED AUTHOR AUTHOR'S ORGANIZ ATION 04/14/2020 [facility] DATE CREATED AUTHOR AUTHOR'S ORGANIZ ATION 07/03/2020 [facility] DATE CREATED AUTHOR AUTHOR'S ORGANIZ ATION 01/22/2022 [facility] DATE CREATED AUTHOR AUTHOR'S ORGANIZ ATION 06/06/2024 [facility] DATE CREATED AUTHOR AUTHOR'S ORGANIZ ATION 07/31/2024 [facility] Goals (unrecognized section and content) Goals may be documented in a n alternate sectionGoals may be documented in an alternate section Source Comments (unrecognize d section and content) In the event this informatio n is protected by the Federal Confidentiality of Alcohol and Drug Abuse Patient Records regulations: The Federal rules restrict any use of the information to criminally investigate or prosecute any alcohol or drug abuse patient.[facility] Reason for Visit (unrecogniz ed section and content) Reason Comments Sore Throat Cough x3 days Care Teams (unrecognized sec tion and content) Golf Course Patroller Relationship Specialty Start Date End Date Naida Lara DO PCP - General Internal Medicine 05/07/13 Team Status: Active Member Role Status Dates Dr. Naida Lara DO Family Provider Active Dr. Naida Lara DO Primary Care Provider Active Team Status: Inactive Member Role Status Dates Dr. Naida Lara DO Primary Care Pr ovider, Attending Provider, Referring Provider Active FOR RECORDS PERTAINING TO PATIENTS WHO ARE [...] BE BASED ON THE PRIMARY CLINICAL RECORDS. [employer] [facility]. provides no warranty or guarantee of the accuracy or completeness of information in this document.
[2024-08-01] MEDS: Lactated Ringers 1,000 ML 15 ML IV (07:53)
--- NOTE | 2024-08-01 08:06 | PRE.ANES_ITS ---
ASA Classification* ASA Classification ASA Classification: 2 Assessment & Plan Anesthesia* Anesthesia Assessment Anesthesia Assessment: Discussed sedation and/or anesthesia options, risks, benefits, and alternatives with patient/parents/legal guardian/POA. Questions invited. The patient/parents/legal guardian/POA seems to understand and agrees to proceed with anesthesia plan. Reviewed the physical assessment, medical history, allergy history and patient home medications list prior to surgery/procedure/anesthetic and documented any changes. Performed airway and anesthesia risk assessments. Anesthesia Type Anesthesia Type: General and Block Anesthesia Focused Assessment* Temperature: 97.8 F Pulse Rate: 71 Blood Pressure: 164/84 Respiratory Rate: 16 Pulse Ox: 99 Airway Assessment Mouth opens: >3 cm Mallampati Score: II Labs Anesthesia Preop lab: CBC WBC 6.8 K/mm3 (4.4-11.0) 07/30/24 06:53 07/30/24 RBC 5.32 M/mm3 (4.6-6.2) 07/30/24 06:53 07/30/24 Hgb 15.1 g/dL (13.0-16.5) 07/30/24 06:53 07/30/24 Hct 46.0 % (40-54) 07/30/24 06:53 07/30/24 Plt Count 209 K/mm3 (150-450) 07/30/24 06:53 07/30/24 CHEMISTRY Potassium 4.0 mmol/L (3.3-5.1) 07/30/24 06:53 07/30/24 Sodium 142 mmol/L (133-145) 07/30/24 06:53 07/30/24 BUN 14 mg/dL (4-19) 07/30/24 06:53 07/30/24 Creatinine 0.86 mg/dL (0.70-1.20) 07/30/24 06:53 07/30/24 Glucose 106 mg/dL (70-99) H 07/30/24 06:53 07/30/24 COAG Pre-Assessment Diagnosis/Proposed Procedure Planned Operative Procedure(s): LEFT SHOULDER ARTHROSCOPY RTC REPAIR Anesthesia History 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 When Was Last Pacemaker Check QUESTION #4 FULL TEXT: You/Your Family Experience fever (hyperthermia) with Anesthesia Last Oral Intake Last Oral intake: Last Oral Intake NPO since Meds taken in AM with sips of water? Meds patient instructed to take am of surgery PONV PONV - solar project coordination specialist: PONV - solar project coordination specialist Female No 07/26/24 08:54 HX of Motion Sickness No 07/26/24 08:54 HX of N/V After Surgery Yes 07/26/24 08:54 Non-Smoker Yes 07/26/24 08:54 Duration of Surgery greater Yes 07/26/24 08:54 than 60 minutes Number of Risk Factors 3 07/26/24 08:54 PONV Score Moderate Risk 07/26/24 08:54 Height & Weight Height & Weight: Anesthesia: Height & Weight Height 6 ft 2 in 08/01/24 07:34 Weight: 119.431 kg 08/01/24 07:34 Body Mass Index (BMI) 33.7 08/01/24 07:34 Respiratory Assessment Respiratory Assessment - solar project coordination specialist: Respiratory Tract Infection Hx - solar project coordination specialist Hx Respiratory Tract Infection No 07/26/24 08:54 STOP Sleep Apnea STOP Sleep Apnea - solar project coordination specialist: STOP Sleep Apnea - solar project coordination specialist Hx Hypertension Yes: CONTROLLED WITH MED 07/26/24 08:54 Hx Sleep Apnea No 07/26/24 08:54 CPAP BIPAP Do you snore loudly (louder No 07/26/24 08:54 than talking or can be heard Do you often feel tired/ No 07/26/24 08:54 fatigued/ sleepy during daytime? Has anyone observed you stop No 07/26/24 08:54 breathing during sleep? STOP Results Negative 07/26/24 08:54 QUESTION #5 FULL TEXT : Do you snore loudly (louder than talking or can be heard through closed doors)? 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 Specify any problems Hx of Preganancy in last 3 N/A 07/26/24 08:54 Months Nurse Filling Out Transfusion DSCHRIBER 07/26/24 08:54 & Questions: Date: 07/26/24 07/26/24 08:54 Time: 08:55 07/26/24 08:54 Patient unable to answer at this time (ie. confused, unrespo /Reproduction History /Reproductive History - solar project coordination specialist: /Reproductive Hx- solar project coordination specialist Hx Now No 07/26/24 08:54 Gestational Age (in weeks): EDC: Hx Hx Para Hx Section SAB No 07/26/24 08:54 Active Medications Active Medications: Current Medications Generic Name Dose Route Start Last Admin Trade Name Freq PRN Reason Stop Dose Admin Cefazolin Sodium 2 gm/ Sodium 110 mls @ 150 mls/hr 08/01/24 09:30 Chloride IV 08/01/24 10:13 INTRAOP ONE Lactated Ringer's 1,000 mls @ 15 mls/hr 08/01/24 07:30 08/01/24 07:53 IV 15 mls/hr .Q48H JOHNNY Administration PFSH Medical History History of varicocele Non-smoker Adopted History of stress test HTN (hypertension) Home Medications ?Medication ?Instructions ?Recorded ?Last Taken ?Type lisinopril 20 mg tablet 20 mg PO QHS 05/23/24 History Allergy/AdvReac Type Severity Reaction Status Date / Time ampicillin Allergy Rash Verified 08/01/24 07:27 Surgical History Hx of LASIK History of ear surgery Social History Smoking Status: Never smoker alcohol intake: never substance use type: does not use Review of Systems (Anesthesia) ROS Narrative System reviewed and no additional complaints, except as documented.
[2024-08-01] MEDS: Cefazolin 2 GM in 0.9% Normal Saline (100mL Bag) 100 ML IV (09:26)
[2024-08-01] MEDS: Epinephrine (1 mg/ml) 1 MG/ML VIAL (09:30)
--- NOTE | 2024-08-01 10:51 | PCM.POST.ANE ---
Anesthesia: Postop Eval I Current Vital Signs Temperature: 97 F Pulse Rate: 88 Blood Pressure: 156/100 Respiratory Rate: 20 Pulse Ox: 94 Oxygen Delivery Method: Room Air Assessment Airway patent: Yes Spontaneous unlabored respirations: Yes Mental status: Awake nausea: No Vomiting: No Anesthesia Complication: No Fluid Hydration Crystalloid volume administer (ml): 1,500 Total IV fluid infused: 1,500 Progress Note Anesthesia document: Postop Eval 1 completed: Yes
--- NOTE | 2024-08-01 11:14 | OP.PCM_ITS ---
Operative Report (Standard) Operative Information Date of Procedure: 08/01/24 Pre-Operative Diagnosis: Left shoulder rotator cuff tear Post-Operative Diagnosis: Left shoulder rotator cuff tear Surgery/Procedure Performed: Left shoulder arthroscopic rotator cuff repair hospital coder: Yes Dumper: JOSE Gibson Tasks completed by wheelchair van operator first responder: Opening & closing and Implanting device Type of Anesthesia: General/Regional RN Documented Start/Stop Times: Operation Date: 08/01/24 09:30 Case Time Into Pre-Op 08/01/24 07:15 Anesthesia Start 08/01/24 09:26 Into Room 08/01/24 09:26 Procedure Start 08/01/24 09:53 Procedure End 08/01/24 10:38 Anesthesia End 08/01/24 10:45 Out of Room 08/01/24 10:45 Into Recovery 08/01/24 10:49 Procedure Start Time: 09:53 Procedure Stop Time: 10:38 Select all DRAINS/GRAFTS/IMPLANTS that apply: Implanted device Implanted device details: Arthrex RC fiber tack anchor x 2, Arthrex self punching bio composite swivel lock anchor 4.75 mm x 18 mm x 2 Estimated Blood Loss: 5 cc Specimen collected: No Description of surgery: Patient was identified in preoperative holding area by name, medical record number, and date of . The operative extremity was marked. All questions were answered to the patient satisfaction. Interscalene block was administered preoperatively by anesthesia staff for postoperative and intraoperative analgesia. At time of his procedure, patient was brought the operative suite and positioned supine on a standard operating table. General anesthesia was induced and LMA placed. All bony prominences were well-padded and the patient was positioned in a lateral decubitus position with the left side up. He was held in place with a beanbag. Axillary roll was placed. We spun the bed 45 degrees. We prepped and draped the left upper extremity in a normal, sterile orthopedic fashion. We performed timeout confirming the side, site, and operation to be performed. No concerns were voiced and wanted to proceed with surgery. 3 g Ancef was administered IV prior to incision by anesthesia staff. I then made a posterior portal 2 fingerbreadths inferior medial posterior border scapular spine. Blunt tipped trocar was used to enter the glenohumeral joint which was then filled with normal saline with epinephrine. Arthroscope was introduced. Diagnostic arthroscopy revealed full-thickness tearing of the supraspinatus. Minimal fraying at the superior labrum. The remainder of the shoulder appeared pristine minus mild synovitis. Interval portal was established. The articular sided supraspinatus was debrided. I then withdrew the arthroscope into the shoulder in the subacromial space. Lateral portal was established in standard fashion under direct visualization. Flexible cannula was placed for suture management. I then debrided the rotator cuff tear with a shaver. The footprint was debrided and lightly decorticated with a bur for healing. Tendon tear measured approximately 1.5 x 1.5 cm with minimal retraction, typical crescent tear pattern. Cuff tissue was most very mobile. I placed 2 fiber tack anchors at the chondral margin approximately 1 cm apart via percutaneous portal. Sutures were tensioned and standard fashion. I used the conjoined tape sutures to establish our medial row with a scorpion suture passer. Sutures were passed approximately 1 cm from the tear margin with excellent tissue purchase. This suture tails were then cut to allow for 4 individual limbs. A limb from each suture anchor was retrieved laterally and placed into 2 swivel lock anchors in standard double row transosseous equivalent type manner. I first placed our posterior and then anterior lateral anchors in standard fashion after tensioning suture. Anchors were placed 1 cm apart and approximately 1 to 2 cm lateral to our medial row. There is excellent compression and reapproximation of the supraspinatus to its footprint. There is a small dogear anteriorly and posteriorly which were reduced and secured with the knotless mechanisms of our lateral row anchors. Sutures are cut flush with the anchors. The tissue was probed and was stable to probing as well as rotation. The subacromial space was then thoroughly lavaged. Instruments were removed. Portal sites were closed in interrupted [id number] fashion with 3-0 nylon suture. Bulky sterile compression dressing was applied. Patient was awakened from anesthesia and safely extubated in the operative suite. He tolerated the procedure well without apparent complication. He was placed in UltraSling. He was transferred to his gurney and subsequently to PACU in stable condition. Postoperative plan: Discharge home after meeting same-day surgery criteria. Follow-up in 2 weeks for suture removal. Physical therapy to start in 2 weeks. Typical postoperative protocol with passive range of motion x 6 weeks, active range of motion 6 to 12 weeks and strengthening to start at 12 weeks. Aspirin 81 mg twice daily for DVT prophylaxis x 2 weeks. Multimodal pain management with Tylenol, 800 mg ibuprofen and oxycodone prescription provided. Ice to the operative site. Sling x 6 weeks. Okay to shower postoperative day #2 if no drainage. Surgical Findings: Full-thickness supraspinatus tear. Stable fixation. Complications Complications: No Admit VTE Documentation VTE Present on Admission: No VTE Mechan Device Prophylaxis: SCD's VTE Pharm Prophylaxis ordered?: Yes
--- NOTE | 2024-08-01 11:19 | POSTOPAN2_ITS ---
Anesthesia Postop Eval I Sum Postop Eval Completion status Anesthesia document: Postop Eval 1 completed: Yes Anesthesia Postop Eval I Summary Anesthesia Postop Eval I Summary: Anesthesia Postop Eval I: Assessment Summary Airway patent Yes 08/01/24 10:51 MID LEVEL GAME DESIGNER.[email or web address] Spontaneous unlabored Yes 08/01/24 10:51 MID LEVEL GAME DESIGNER.ROSA respirations Mental status Awake 08/01/24 10:51 MID LEVEL GAME DESIGNER.JCLI nausea No 08/01/24 10:51 MID LEVEL GAME DESIGNER.JCLI Vomiting No 08/01/24 10:51 MID LEVEL GAME DESIGNER.JCLI Anesthesia Postop Eval I: Fluid Summary Crystalloid volume administer 1,500 08/01/24 10:51 MID LEVEL GAME DESIGNER.JCLI (ml) Colloids volume administered ( ml) Blood Product volume administered (ml) Total IV fluid infused 1,500 08/01/24 10:51 MID LEVEL GAME DESIGNER.DANIELLI Anesthesia Postop Eval I: Summary Notes Anesthesia Complication No 08/01/24 10:51 MID LEVEL GAME DESIGNER.JOSEFA Anesthesia Complication Comment: Post-operative progress note Anesthesia: Postop Eval II Evaluation Mental status: Awake Pain Level: 2 nausea: No Vomiting: No
--- NOTE | 2024-08-01 11:19 | PCM.POSTANE2 ---
Anesthesia Postop Eval I Sum Postop Eval Completion status Anesthesia document: Postop Eval 1 completed: Yes Anesthesia Postop Eval I Summary Anesthesia Postop Eval I Summary: Anesthesia Postop Eval I: Assessment Summary Airway patent Yes 08/01/24 10:51 BIAS MACHINE OPERATOR [email or web address].[email or web address] Spontaneous unlabored Yes 08/01/24 10:51 BIAS MACHINE OPERATOR HELPER.[email or web address] respirations Mental status Awake 08/01/24 10:51 BIAS MACHINE OPERATOR [email or web address].[email or web address] nausea No 08/01/24 10:51 BIAS MACHINE OPERATOR HELPER.[email or web address] Vomiting No 08/01/24 10:51 BIAS MACHINE OPERATOR [email or web address].[email or web address] Anesthesia Postop Eval I: Fluid Summary Crystalloid volume administer 1,500 08/01/24 10:51 BIAS MACHINE OPERATOR HELPER.JCLI (ml) Colloids volume administered ( ml) Blood Product volume administered (ml) Total IV fluid infused 1,500 08/01/24 10:51 BIAS MACHINE OPERATOR HELPER.[email or web address] Anesthesia Postop Eval I: Summary Notes Anesthesia Complication No 08/01/24 10:51 BIAS MACHINE OPERATOR HELPER.[email or web address] Anesthesia Complication Comment: Post-operative progress note Anesthesia: Postop Eval II Evaluation Mental status: Awake Pain Level: 2 nausea: No Vomiting: No
[2024-08-01] MEDS: Ketorolac 15 MG/ML Vial IV (11:40)
== END 2024-08-01 12:16 | disposition home or self-care (01) ==
LOC: SDC 07:00 → AC 07:00
PROVIDERS: PCP Internal Medicine; Referring Provider Student in an Organized Health Care Education/Training Program; Visit Provider Student in an Organized Health Care Education/Training Program
PROC: (CPT 29827; principal; 2024-08-01 09:10)
DX: M75.102 Unspecified rotator cuff tear or rupture of left shoulder, not specified as traumatic (principal); X50.0XXA Overexertion from strenuous movement or load, initial encounter; I10 Essential (primary) hypertension; Z79.899 Other long term (current) drug therapy
CPT/HCPCS: 29827; 01630; 64415; 36415; 80048; 85025; 93005; C1713; J2405